=== PATIENT | female | born 1960 | race Caucasian/White ===

== ENCOUNTER 2024-07-21 12:38 | Emergency (ER) | payer BC, SELFPAY ==
--- NOTE | ~2024-07-21 | CT_ITS ---
EXAMINATION: CT HEAD WITHOUT CONTRAST CLINICAL INFORMATION: Headache and blurry vision. COMPARISON: None available. TECHNIQUE: Contiguous axial imaging was performed from the skull base to vertex without intravenous administration of contrast. This CT examination was performed using dose optimization techniques as appropriate, variously including the following: *Automated exposure control *Adjustment of mA and/or kV according to patient size (this includes techniques or standardized protocols for targeted exams where dose is matched to indication/reason for exam; i.e. extremities or head) *Use of iterative reconstruction technique DLP: 676 mGy-cm FINDINGS: There is no acute intracranial hemorrhage. There is no evidence of acute/subacute cerebral or cerebellar infarction. There is no midline shift or mass effect. No extra-axial fluid collection. The ventricles are normal in size. The orbits are symmetric and within normal limits. The calvarium is intact. There is a partially visualized mucosal retention cyst within the left maxillary sinus. The mastoid air cells are clear. CT/CT head/brain wo IV con IMPRESSION: No acute intracranial pathology. Electronically signed by: Paddy Lezama DO 07/21/2024 03:46 PM EDT
--- NOTE | ~2024-07-21 | XR_ITS ---
EXAMINATION: XR CHEST CLINICAL INFORMATION: Chest pain. COMPARISON: Chest radiograph dated January 03, 2020. TECHNIQUE: 2 views of the chest were obtained. FINDINGS: The heart is normal in size. The lungs are clear. Pleural spaces are clear. No pneumothorax. No acute osseous abnormality. XR/XR chest 2V IMPRESSION: No acute cardiopulmonary disease. Electronically signed by: Paddy Lezama DO 07/21/2024 03:48 PM EDT
--- NOTE | 2024-07-21 12:41 | ECG_ITS ---
Test Reason : cp Blood Pressure : / mmHG Vent. Rate : 068 BPM Atrial Rate : 068 BPM P-R Int : 138 ms QRS Dur : 082 ms QT Int : 442 ms P-R-T Axes : 037 249 000 degrees QTc Int : 469 ms Normal sinus rhythm Right superior axis deviation Pulmonary disease pattern T wave abnormality, consider anterolateral ischemia Abnormal ECG When compared with ECG of 03-JAN-2020 10:54, Questionable change in QRS axis Nonspecific T wave abnormality now evident in Inferior leads Referred By: Lana Dang Electronically Signed By:JOE TYSON MD
[2024-07-21 13:00] VITALS: BP 155/85; PULSE 66; RESP 16; TEMP 37; O2SAT 95; BMI 27.6
--- NOTE | 2024-07-21 13:00 | ED.GENADULT ---
HPI - General Adult General Chief complaint: Chest Pain Stated complaint: chest tightness, high BP, headache Time Seen by Provider: 07/21/24 13:52 Source: patient, RN notes reviewed and old records reviewed Mode of arrival: ambulatory History of Present Illness ED Provider: Peggy Estrada PA-C HPI narrative: 63-year-old female with a past medical history of anxiety presenting to the ED complaining of headache, feeling fuzzy and flush, and chest tightness with elevated blood pressure noted at dentist and home since last night. No known history of hypertension. Also reports blurry vision. Denies neck/back pain, nausea/vomiting, SOB, pedal edema. Denies taking anticoagulation Related Data Previous Rx's ?Medication ?Instructions ?Recorded luvdnzquro-mqwzppgqdqrkn-gcbxksyh 1 cap PO Q4-6H PRN headache #14 07/21/24 50 mg-300 mg-40 mg capsule caps (Fioricet) Allergies Allergy/AdvReac Type Severity Reaction Status Date / Time acetaminophen [From TYLOX] AdvReac Mild NAUSEA Verified 07/21/24 13:02 oxycodone [From TYLOX] AdvReac Mild NAUSEA Verified 07/21/24 13:02 Review of Systems Review of Systems: Yes all other systems are reviewed and are negative Constitutional: Constitutional: Reports as per HPI Neurologic: Denies Abnormal speech present PMFSH Past Medical History Attestation statement: The following information was validated with the patient. Source: old records reviewed Social History Social History Smoked in Last 30 Days: Yes Use of substances other than those prescribed or required for medical reasons: Yes Substance Use Type: Marijuana Substance Use Frequency: Occasionally Advance Directives: No Advance Directives Information Provided: Yes Do you have a plan to hurt others: No Plan Physical Exam ED Vital Signs: Vital Signs - 24 hr 07/21/24 13:00 07/21/24 15:09 07/21/24 15:09 Temperature 98.6 F Pulse Rate 66 62 70 Respiratory Rate 16 Blood Pressure 155/85 H 161/82 H 168/93 H Pulse Oximetry 95 Oxygen Delivery Method Room Air 07/21/24 15:10 07/21/24 15:12 Temperature 98.6 F Pulse Rate 68 67 Respiratory Rate 18 Blood Pressure 164/89 H 164/89 H Pulse Oximetry 97 Oxygen Delivery Method Room Air BMI result Body Mass Index 27.6 Const General: cooperative, healthy appearing, no acute distress, alert and awake Orientation/consciousness: patient oriented x3 Limitations: no limitations HENMT Head: Yes normal to inspection and Yes atraumatic Ears: hearing grossly normal bilaterally General nose exam: Normal external nose present Face and sinus: Yes normal facial exam Eyes General: appearance normal, both eyes and all related structures Pupils: Equal, round and reactive pupils present EOM: EOMs intact bilaterally Direct Ophthalmoscopy: no photophobia Neck Neck: Yes normal visual inspection, Yes no meningeal signs and No anterior neck swelling Resp Effort & Inspection: normal respiratory effort and no respiratory distress Auscultation: clear to auscultation bilaterally, no crackles and no wheezes Cardio Rate: regular rate Heart sounds: S1 normal heart sound present and S2 normal heart sound present GI Inspection: Yes normal to inspection Palpation (GI): Soft to palpation, nontender, no guarding and not rigid Skin Rashes: no rashes Wounds: no wounds Neuro General: patient oriented x3, gait normal, tone normal, moves all extremities, no meningeal signs, no focal motor deficits and CN's II-XI intact bilaterally Cranial nerves: Yes CN's II-XII intact bilaterally, Yes Equal, round and reactive pupils present and Yes Bilaterally intact EOM present Cognition (Neuro): normal cognition Speech: No Abnormal speech present Gait exam (Neuro): Normal gait present Motor exam (neuro): 5/5 motor strength present throughout and no tremor noted Extrem General: Yes normal to inspection Course Course Course Narrative: This is a rapid medical exam performed by Damaris Dang NP: Additional HPI, ROS, PE not included below will be deferred to primary provider. Patient is a 63-year-old female presenting with headache, chest tightness, and increased blood pressure. Noticed symptoms at the dentist yesterday, checked at home last night and BP was 202/117. Purdy flushed at home last night. BP 155/85 in triage. Plan: EKG, labs -Labs reassuring. Troponin x2 negative -viral studies negative XR chest 2V IMPRESSION: No acute cardiopulmonary disease. CT head/brain wo IV con IMPRESSION: No acute intracranial pathology. > blood pressure has remained in 160s over 80s/90s in the ED. Results discussed with patient including worrisome signs and symptoms and strict return precautions, and when to return to the emergency department. They verbalized understanding and feel safe for discharge at this time. Medications Administered Discontinued Medications Generic Name Dose Route Start Last Admin Trade Name Garcia PRN Reason Stop Dose Admin Acetaminophen/Butalbital/Caffeine 1 tab 07/21/24 16:06 07/21/24 16:27 Butalb/Acetamin/Caff 50/325/40 Tablet PO 07/21/24 16:07 1 tab ONCE ONE Administration Medical Decision Making Medical Decision Making MDM Narrative: 63-year-old female with a past medical history of anxiety presenting to the ED complaining of headache, feeling fuzzy and flush, and chest tightness with elevated blood pressure noted at dentist and home since last night. On exam BP 155/85 in triage, NAD/nontoxic appearing, no focal neuro deficits, lungs CTA. Concern for atypical ACS vs hypertensive urgency/emergency vs migraine headache vs anxiety vs ICH or subacute CVA. Unlikely TIA. Plan: EKG, labs, UA, CXR, head CT, orthostatics, re-evaluate Please refer to course for remaining clinical decision making, interpretation of labs/imaging results, and discussions with consultants and/or family members. Differential Diagnosis Differential Diagnoses: The differential diagnosis associated with the presentation includes As above Admission/Observation Consideration of admission/observation: Escalation of care including admission/observation considered Lab Data MDM Lab Attestation statement: I reviewed the patient's lab results. 07/21/24 13:32 07/21/24 13:32 Labs: Lab Results 07/21/24 07/21/24 Range/Units 13:32 16:18 WBC 11.1 H (4.8-10.8) X10*3/uL RBC 4.30 (4.20-5.50) X10*6/uL Hgb 13.8 (12.0-16.0) g/dl Hct 40.1 (37.0-47.0) % MCV 93.3 (80.0-98.0) fL MCH 32.1 (27.0-33.0) pg MCHC 34.4 (31.0-35.0) g/dl RDW 13.0 (11.0-16.0) % Plt Count 273 (160-400) X10*3/uL MPV 10.1 (9.4-12.3) fL Immature Gran % (Auto) 0.5 H (0.0-0.4) % Neut % (Auto) 66.5 (45-73) % Lymph % (Auto) 24.5 (20-40) % [place] % (Auto) 7.0 (2-11) % Eos % (Auto) 1.0 (0-4) % Baso % (Auto) 0.5 (0-2) % Lymph # (Auto) 2.7 (1.2-4.9) X10*3/uL [place] # (Auto) 0.8 (0.1-1.2) X10*3/uL Eos # (Auto) 0.1 (0.0-0.4) X10*3/uL Baso # (Auto) 0.1 (0.0-0.2) X10*3/uL Abs Immat Gran (auto) 0.05 H (0.00-0.03) X10*3/uL Absolute Neuts (auto) 7.4 (2.0-8.3) x10*3/uL Absolute Nucleated RBC 0.000 (0.0-0.012) X10*3/uL Nucleated RBC % (auto) 0.0 (0.0-0.2) /100WBC PT 10.8 L (10.9-12.4) SEC INR 0.9 (0.9-1.1) Sodium 139 (135-145) mmol/L Potassium 3.6 (3.3-5.1) mmol/L Chloride 108 (96-108) mmol/L Carbon Dioxide 24 (22-29) mmol/L Anion Gap 11 L (12-20) BUN 12 (9-16) mg/dL Creatinine 0.72 (0.5-1.4) mg/dL Estim Creat Clear Calc 71.4 Estimated GFR > 60 Random Glucose 114 (60-115) mg/dL Calcium 10.3 H (8.4-10.2) mg/dL Magnesium 2.0 (1.6-2.6) mg/dL Total Bilirubin 0.4 (0.0-1.0) mg/dL AST 32 H (5-31) U/L ALT 39 H (0-31) U/L Alkaline Phosphatase 82 (39-117) U/L Troponin I High Sens < 2.7 < 2.7 (<3.5-17.0) ng/L Total Protein 6.9 (6.5-8.0) g/dL Albumin 4.4 (3.5-5.0) g/dL Influenza Type A (PCR) NEGATIVE (Negative) Influenza Type B (PCR) NEGATIVE (Negative) RSV RNA Qual (PCR) NEGATIVE (Negative) SARS-CoV-2 RNA (RT-PCR) NEGATIVE (Negative) Independent Interpretation I performed an independent interpretation of an: EKG (My interpretation EKG normal sinus rhythm rate of 60. Questionable change in QRS axis when compared to prior. Nonspecific T-wave abnormality in inferior leads. No STEMI) and Plain X-Ray Radiology Impression Discussion of test interpretation with radiology: I have reviewed the radiologist's reading. Independent Historian Clinical information obtained from an independent historian. History obtained from or confirmed by: Spouse External Record Review External record reviewed: Inpatient record, Office record, Outpatient record, Prior outpatient labs, Prior outpatient radiology, Primary care record and Outside ED record Tests considered The following testing was considered but not selected: As above Chronic Conditions Patient?s care impacted by: Other (anxiety) Discharge Plan Discharge Clinical Impression: Chest tightness, Headache Patient Disposition: Home, Self-Care Instructions: Acute Headache (DC), Noncardiac Chest Pain (ED) Additional Instructions: Your blood work is reassuring Your x-ray and head CT are also unremarkable Please follow-up with your primary care doctor as well as Cardiology and Neurology Fioricet as a combination headache medicine, take as needed for acute headache If her symptoms persist or worsen you have constant or worsening chest pain, shortness of breath, weakness, nausea/vomiting or headache return to the emergency department Prescriptions: New nbylmkfuuw-vpudeczqdpura-rkly [Fioricet] 50-300-40 mg capsule 1 cap PO Q4-6H PRN (Reason: headache) Qty: 14 0RF Referrals: [facility] [place]Provider Group] [facility] [place] Group] Alden Guido MD [Primary Care Provider] - 2 days Print Language: Cape Verdean
[2024-07-21 13:41] LABS: MANUAL DIFF FLAG NO
[2024-07-21 13:46] LABS: Basophils Absolute Auto 0.1 X10*3/uL (0.0-0.2); Basophils Percent Auto 0.5 % (0-2); Eosinophils Absolute Auto 0.1 X10*3/uL (0.0-0.4); Hematocrit 40.1 % (37.0-47.0); Hemoglobin 13.8 g/dl (12.0-16.0); Imm Gran Abs Auto 0.05 X10*3/uL (0.00-0.03); Imm Gran Pct Auto 0.5 % (0.0-0.4); Lymphocytes Absolute Auto 2.7 X10*3/uL (1.2-4.9); Lymphocytes Percent Auto 24.5 % (20-40); Mean Corpuscular HGB Conc 34.4 g/dl (31.0-35.0); Mean Corpuscular Hemoglobin 32.1 pg (27.0-33.0); Mean Corpuscular Volume 93.3 fL (80.0-98.0); Mean Platelet Volume 10.1 fL (9.4-12.3); Monocytes Absolute Auto 0.8 X10*3/uL (0.1-1.2); Neutrophils Absolute Auto 7.4 x10*3/uL (2.0-8.3); Neutrophils Percent Auto 66.5 % (45-73); Platelet Count 273 X10*3/uL (160-400); White Blood Count 11.1 X10*3/uL (4.8-10.8)
[2024-07-21 13:49] LABS: INTERNATIONAL NORM RATIO 0.9 (0.9-1.1); Prothrombin Time 10.8 SEC (10.9-12.4)
[2024-07-21 13:57] LABS: Alanine Aminotransferase 39 U/L (0-31); Albumin Level 4.4 g/dL (3.5-5.0); Alkaline Phosphatase 82 U/L (39-117); Anion Gap 11 (12-20); Aspartate Amino Transferase 32 U/L (5-31); Bilirubin Total 0.4 mg/dL (0.0-1.0); Blood Urea Nitrogen 12 mg/dL (9-16); Calcium 10.3 mg/dL (8.4-10.2); Carbon Dioxide 24 mmol/L (22-29); Chloride 108 mmol/L (96-108); Creatinine Clr Calc Pharmacy 71.4; Estimated Glomerular Filt Rate > 60; Glucose Random 114 mg/dL (60-115); Potassium 3.6 mmol/L (3.3-5.1); Sodium 139 mmol/L (135-145); Total Protein 6.9 g/dL (6.5-8.0)
[2024-07-21 14:04] LABS: Troponin-I High Sensitivity < 2.7 ng/L (<3.5-17.0)
[2024-07-21 14:18] LABS: Influenza A PCR NEGATIVE (Negative); Influenza B PCR NEGATIVE (Negative); Resp Syncy Virus RNA Qual PCR NEGATIVE (Negative); SARS COV2 PCR INHOUSE NEGATIVE (Negative)
--- OUTSIDE RECORDS SUMMARY | 2024-07-21 14:43 | XMS_ITS | Continuity of Care Document ---
Author Organization [facility] Huy lt Address [address] [place] [address]- Care Team Providers Care Garment Tag Stringer Name Role Phone Hay AGUIRRE, Alden Agudelo Primary Care Physician Encounter [facility] Date(s): 03/12/23 - 04/11/23 [facility] Adult [address] [place] [address]- Allergies, Adverse Reactions, Alerts Substance Reaction Severity Status Percocet 1 Active 1makes skin crawl Immunizations Given and Recorded Vaccine Date Status Refusal Reason zoster vaccine, inactivated 07/25/22 Recorded zoster vaccine, inactivated 05/12/22 Recorded SARS-CoV-2 (COVID-19) mRNA-1273 vaccine 10/17/21 R ecorded SARS-CoV-2 (COVID-19) Ad26 vaccine 01/20/21 Record ed tetanus/diphtheria/pertussis, acel(Tdap) 1 09/07/17 Given tetanus/diphtheria/pertussis, acel(Tdap) 01/17/08 Given influenza virus vaccine, inactivated 2 07/27/17 Gi kelvin influenza virus vaccine, inactivated 08/15/14 Give n influenza virus vaccine, inactivated 3 09/29/13 Gi kelvin influenza virus vaccine, inactivated 4 12/20/12 Gi kelvin pneumococcal 23-valent vaccine 05/21/15 Given Tetanus Toxoid Vaccine (oldterm) 10/12/97 Given 1Result Comment: [09/07/2017] [id number] 2Result Comment: [07/27/2017] AFLURIA [id number] 3Admin Note: DECLINED 4Admin Note: pt delcined Medications FLUoxetine 20 mg oral capsule 1, capsule, By Mouth, Daily, # 30 capsule, Refills 5, Maintenance, 03/26/23 18:02:00 EDT, Route to Pharmacy Electronically, [facility], 156, cm, 08/29/22 14:28:00 EST, Height Start Date: 03/26/23 Status: Ordered Lipitor 40 mg oral tablet 1 tablet = 40 mg, By Mouth, Daily, # 90 tablet, 1 Refills, Maintenance, 03/19/23 15:38:00 EDT, Tablet, [facility], 156, cm, 08/29/22 14:28:00 EST, Height Start Date: 03/19/23 Status: Ordered LORazepam 1 mg oral tablet 1 tablet, By Mouth, Daily, PRN NEEDED FOR ANXIETY, # 10 tablet, 4 Refills, Maintenance, 233:42:00 EDT, [facility], 156, cm, 08/29/22 14:28:00 EST, Height Start Date: 02/12/23 Stop Date: 08/15/23 Status: Ordered zolpidem 5 mg oral tablet 1 tablet, By Mouth, Daily at bedtime, PRN NEEDED FOR SLEEP, # 14 tablet, 5 Refills, Maintenance,03/26/23 18:03:00 EDT, [facility], 156, cm, 08/29/22 14:28:00 EST, Height Start Date: 03/26/23 Stop Date: 09/25/23 Status: Ordered Problem List Condition Confirmation Course Effective Dates Status Health Status Informant Allergic rhinitis Confirmed Active Anxiety Confirmed Active Apocrine metaplasia of breast Confirmed Active Cigarette smoker Confirmed 04/19/12 Active Family history of amyloidosis - mother Confirmed Active Prediabetes Confirmed Active History of leukocytosis Confirmed Active Hypercholesterolemia Confirmed Active Insomnia, idiopathic Confirmed Active Depression, major Confirmed Active Osteoarthritis of right knee Confirmed Active Osteopenia Confirmed Active Osteoporosis Confirmed Active Social History Social History Type Response Smoking Status Current every day hernesto alvarez entered on: 03/17/18 Sex Patient Care team information Care Team Personnel Name: Fay Wong RN Position: [facility] RN Member Role: Primary Care Nurse Name: Alden Guido MD Position: S Physician - Primary Care Member Role: PCP Address: Address: [address] [place] [id number] Name: Vianney Alexander RN Position: [facility] RN Member Role: Primary Care Nurse Name: Caty Ferrari RN Position: [facility] RN Member Role: Primary Care Nurse Name: Juliann Deal RN Position: [facility] Tabular Typist Member Role: Primary Care Nurse Care Team Related Persons Name: BINDU ANGELES Address: home [address] [place] [id number]
--- OUTSIDE RECORDS SUMMARY | 2024-07-21 14:43 | XMS_ITS | Continuity of Care Document ---
Author Organization [facility] Huy lt Address [address] [place] [address]- Care Team Providers Care Nursery Worker Name Role Phone Hay AGUIRRE, Alden Agudelo Primary Care Physician Encounter [facility] Date(s): 06/10/22 - 07/10/22 [facility] Adult [address] [place] [address]- Allergies, Adverse Reactions, Alerts Substance Reaction Severity Status Percocet 1 Active 1makes skin crawl Immunizations Given and Recorded Vaccine Date Status Refusal Reason zoster vaccine, inactivated 05/12/22 Recorded SARS-CoV-2 (COVID-19) [...] Vaccine (oldterm) 10/12/97 Given 1Result Comment: [09/07/2017] [id number] 2Result Comment: [07/27/2017] AFLURIA [id number] 3Admin Note: DECLINED 4Admin Note: pt delcined Medications acetaminophen 325 mg oral tablet 650 mg, By Mouth, Every 6 hours, Refills 0, Maintenance, 09/23/17 8:28:50 Start Date: 09/23/17 Status: Ordered buPROPion 300 mg/24 hours (XL) oral tablet, extended release 1 tablet, By Mouth, Daily, # 90 tablet, 1 Refills, Maintenance, 06/27/22 15:47:00 EDT, [facility], 156, cm, 06/10/22 8:27:00 EDT, Height, 69.6, kg, 01/04/21 10:03:00 EDT, Dry Weight Start Date: 06/27/22 Status: Ordered FLUoxetine 10 mg oral capsule 1, capsule, By Mouth, Daily, # 90 capsule, Refills 3, Maintenance, 06/27/22 17:03:00 EDT, Route to Pharmacy Electronically, [facility], 156, cm, 06/10/22 8:27:00 EDT, Height, 69.6, kg, 01/04/21 10:03:00 EDT, Dry Weight Start Date: 06/27/22 Status: Ordered Lipitor 40 mg oral tablet 1 tablet = 40 mg, By Mouth, Daily, # 90 tablet, 3 Refills, Maintenance, 08/14/21 10:28:00 EDT, Tablet, [facility], 156, cm, 01/05/21 6:17:00 EDT, Height, 69.6, kg, 01/04/21 10:03:00 EDT, Dry Weight Start Date: 08/14/21 Status: Ordered LORazepam 1 mg oral tablet 1 tablet, By Mouth, Daily, PRN NEEDED FOR ANXIETY, # 10 tablet, 4 Refills, Maintenance, 04/21/2217:33:00 EDT, [facility], 156, cm, 01/05/21 6:17:00 EDT, Height, 69.6, kg, 01/04/21 10:03:00 EDT, Dry Weight Start Date: 04/21/22 Status: Ordered MiraLax Powder 1 pack/packet = 17 Gm, By Mouth, Daily, PRN Constipation, 0 Refills, Maintenance, 01/05/21 10:29:00EDT, Powder, Partial fill upon patient request if the prescription is for a schedule II opioid drug. Start Date: 01/05/21 Status: Ordered Paxlovid 150 mg-100 mg (150 mg-100 mg Dose) oral tablet See Instructions, Take 300 mg nirmatrelvir (two 150 mg tablet) and 100 mg ritonavir (one 100 mg tablet), taking all 3 tablets together, orally twice daily for 5 days, # 30 tablet, 0 Refills, Maintenance, 06/10/22 17:39:00 EDT, [facility],... Start Date: 06/10/22 Status: Ordered senna 187 mg oral tablet 1 tablet = 8.6 mg, By Mouth, Daily at bedtime, PRN as needed for constipation, 0 Refills, Maintenance, 01/05/21 10:29:00 EDT, Tablet, Partial fill upon patient request if the prescription is for a schedule II opioid drug. Start Date: 01/05/21 Status: Ordered zolpidem 5 mg oral tablet 1 tablet, By Mouth, Daily at bedtime, PRN NEEDED, TO SLEEP., # 14 tablet, 5 Refills, Acute 09/04/22 9:55:00 EST, 03/04/22 9:55:00 EDT, [facility], 156, cm, 01/05/21 6:17:00 EDT, Height, 69.6, kg, 01/04/21 10:03:00 EDT, Dry Weight Start Date: 03/04/22 Stop Date: 09/04/22 Status: Ordered Problem List Condition Confirmation Course [...] on: 03/17/18 Sex Patient Care team information Personnel Name: Alden Guido MD Address: Address: [address] [place] [id number]
--- OUTSIDE RECORDS SUMMARY | 2024-07-21 14:43 | XMS_ITS | Continuity of Care Document ---
Author Organization [facility] Huy lt Address [address] [place] [address]- Care Team Providers Care Marble Rubber Name Role Phone Hay AGUIRRE, Alden Agudelo Primary Care Physician [phone] Encounter [facility] Date(s): 02/13/23 - 03/15/23 [facility] Adult [address] [place] [address]- Allergies, Adverse Reactions, Alerts Substance Reaction Severity [...] Vaccine (oldterm) 10/12/97 Given 1Result Comment: [09/07/2017] [id number] 2Result Comment: [07/27/2017] AFLURIA [id number] 3Admin Note: DECLINED 4Admin Note: pt delcined Medications FLUoxetine 20 mg oral capsule 20 mg, 1, capsule, By Mouth, Daily, Increase in dose, # 30 capsule, Refills 5, Tot. Refills 5, Maintenance, 08/29/22 14:56:00 EST, Route to Pharmacy Electronically, [facility], Partial fill upon patient request if the prescription is for... Start Date: 08/29/22 Status: Ordered Lipitor 40 mg oral tablet 1 tablet = 40 mg, By Mouth, Daily, # 90 tablet, 1 Refills, Maintenance, 09/05/22 10:12:00 EST, Tablet, [facility], 156, cm, 08/29/22 14:28:00 EST, Height, 69.6, kg, 01/04/21 10:03:00EDT, Dry Weight Start Date: 09/05/22 Status: Ordered LORazepam 1 mg oral tablet 1 tablet, By Mouth, Daily, PRN NEEDED FOR ANXIETY, # 10 tablet, 4 Refills, Maintenance, :42:00 EDT, [facility], 156, cm, 08/29/22 14:28:00 EST, Height Start Date: 02/12/23 Stop Date: 08/15/23 Status: Ordered zolpidem 5 mg oral tablet See Instructions, TAKE ONE TABLET BY MOUTH AT BEDTIME NEEDED FOR SLEEP, # 14 tablet, 5 Refills, Maintenance, 09/16/22 17:10:00 EST, [facility], 156, cm, 08/29/22 14:28:00 EST, Height, 69.6, kg, 01/04/21 10:03:00 EDT, Dry Weight Start Date: 09/16/22 Status: Ordered Problem List Condition Confirmation Course [...] Team Personnel Name: Fay Wong RN Position: [facility] RN Member Role: Primary Care Nurse Name: Alden Guido MD Position: [facility] Physician - Primary Care Member Role: PCP Address: Address: [address] [place] [address]- Name: Vianney Alexander RN Position: [facility] RN Member Role: Primary Care Nurse Name: Caty Ferrari RN Position: [facility] RN Member Role: Primary Care Nurse Name: Juliann Deal RN Position: [facility] Hospital Journeyman Press Operator Member Role: Primary Care Nurse Care Team Related Persons Name: BINDU ANGELES Address: home [address] [place] [id number]
--- OUTSIDE RECORDS SUMMARY | 2024-07-21 14:43 | XMS_ITS | Continuity of Care Document ---
Author Organization [facility] Kenny Ford Huy Address [address] [place] [address]- Care Team Providers Care Magazine Hand Name Role Phone Antoine Thompson MD Primary Care Physician [facility]): [facility] - 12/13/19 [facility] Kenny Ford Adult [address] [place] [address]- [facility] Encounter Diagnosis General medical exam(Discharge Diagnosis) - 12/06/19 Osteoporosis s/p 3 years of zoledronic acid(Discharge Diagnosis) - 12/06/19 Insomnia, idiopathic(Discharge Diagnosis) - 12/06/19 Depression, major(Discharge Diagnosis) - 12/06/19 Cigarette smoker(Discharge Diagnosis) - 12/06/19 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) - 12/06/19 Attending Physician: Antoine Thompson MD Allergies, Adverse Reactions, Alerts Substance Reaction Severity Status NKA Active Immunizations Given and Recorded Vaccine Date Status Refusal Reason tetanus/diphtheria/pertussis, acel(Tdap) 1 09/07/17 Given tetanus/diphtheria/pertussis, acel(Tdap) 01/17/08 Given influenza virus vaccine, inactivated 2 07/27/17 Gi kelvin influenza virus vaccine, inactivated 08/15/14 Give n influenza virus vaccine, inactivated 3 09/29/13 Gi kelvin influenza virus vaccine, inactivated 4 12/20/12 Gi kelvin pneumococcal 23-valent vaccine 05/21/15 Given Tetanus Toxoid Vaccine (oldterm) 10/12/97 Given 1Result Comment: [09/07/2017] [id number] 2Result Comment: [07/27/2017] AFLURIA [id number] 3Admin Note: DECLINED 4Admin Note: pt delcined Medications acetaminophen 325 mg oral tablet 650 mg, By Mouth, Every 6 hours, Refills 0, Maintenance, 09/23/17 8:28:50 Start Date: 09/23/17 Status: Ordered Ambien 5 mg oral tablet 1 tablet = 5 mg, By Mouth, Daily at bedtime, PRN Sleep, 6 month supply, # 14 tablet, 5 Refills, Maintenance, 08/08/19 9:47:00 EDT, Tablet Start Date: 08/08/19 Status: Ordered buPROPion 300 mg/24 hours (XL) oral tablet, extended release 1 tablet = 300 mg, By Mouth, Daily, # 90 tablet, 3 Refills, Maintenance, 12/06/19 10:04:00 EST, [facility], 155.9, cm, 12/06/19 9:43:00 EST, Height, 66.7, kg, 02/01/19 11:39:00 EDT, Dry Weight Start Date: 12/06/19 Status: Ordered chantix 1mg tablet 1 tablet = 1 mg, By Mouth, 2 times a day, with a full glass of water starting week 5 - week 12, # 60 tablet, 1 Refills, Maintenance, 11/30/18 15:33:18 EST, Tablet Start Date: 11/30/18 Status: Ordered Chantix Starter Pack 0.5 mg-1 mg oral tablet See Instructions, as directed on package labelling, # 1 pack/packet, 0 Refills, Maintenance, 11/30/18 15:33:21 EST, Tablet, as directed on package labelling Start Date: 11/30/18 Status: Ordered FLUoxetine 10 mg oral tablet 1 tablet = 10 mg, By Mouth, Daily, # 90 tablet, 3 Refills, Maintenance, 12/06/19 10:04:00 EST, Tablet, [facility], 155.9, cm, 12/06/19 9:43:00 EST, Height, 66.7, kg, 02/01/19 11:39:00 EDT, Dry Weight Start Date: 12/06/19 Status: Ordered Lipitor 40 mg oral tablet 1 tablet = 40 mg, By Mouth, Daily, # 90 tablet, 3 Refills, Maintenance, 12/06/19 10:03:00 EST, Tablet, [facility], 155.9, cm, 12/06/19 9:43:00 EST, Height, 66.7, kg, 02/01/19 11:39:00 EDT, Dry Weight Start Date: 12/06/19 Stop Date: 11/30/20 Status: Ordered Problem List Condition Effective Dates Status Health Status Inform ant Allergic rhinitis(Confirmed) Active Anxiety(Confirmed) Active Apocrine metaplasia of breast(Confirmed) Active Cigarette smoker(Confirmed) 04/19/12 Active Family history of amyloidosi s - mother(Confirmed) Active Prediabetes(Confirmed) Active Hypercholesterolemia(Confirmed) Active Insomnia, idiopathic(Confirmed) Active Depression, major(Confirmed) Active Osteoarthritis of right knee(Confirmed) Active Osteoporosis(Confirmed) Active Diagnosis Diagnosis Type Effective Dates Health Status Clinical Service Informant Depression, major Discharge Diagnosis 12/06/19 Insomnia, idiopathic Discharge Diagnosis 12/06/19 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 Discharge Diagnosis 12/06/19 Cigarette smoker Discharge Diagnosis 12/06/19 Osteoporosis s/p 3 years of zoledronic acid Discharge Diagnosis 12/06/19 Non-Specified General medical exam Discharge Diagnosis 12/06/19 Vital Signs Most recent to oldest [Reference Range]: 1 Height 155.9 cm (12/06/19 9:43 AM) Weight 68.1 kg (12/06/19 9:43 AM) Pulse Rate [55-90 bpm] 60 bpm (12/06/19 9:43 AM) Body Mass Index [18.5-24.99] 28.02 *H* (12/06/19 9:43 AM) Blood Pressure [90-138/55-84 mm Hg] 100/ 68mm Hg (12/06/19 9:43 AM) Respiratory Rate [16-30 br/min] 16 br/mi n (12/06/19 9:43 AM) Temperature [96.8-100.4 DegF] 97.8 DegF (12/06/19 9:43 AM) Blood pressure sites Arm, left (12/06/19 9:43 AM) Temperature Route Oral (12/06/19 9:43 AM) Weight Obtained Via Standing scale (12/06/19 9:43 AM) Social History Social History Type Response Smoking Status Current every day hernesto alvarez entered on: 03/17/18 Sex
--- OUTSIDE RECORDS SUMMARY | 2024-07-21 14:43 | XMS_ITS | Continuity of Care Document ---
Author Organization [facility] Logan Huy lt Address [address] [place] [address]- Care Team Providers Care Environmental Advisor Name Role Phone Hay AGUIRRE, Alden Agudelo Primary Care Physician [phone] [place] [facility] [place]19[place]23 [place] 08/26/23 [facility] Adult [address] [place] [address]- Encounter Diagnosis Urticaria(Discharge Diagnosis) - 08/19/23 Elevated blood pressure reading without diagnosis of hypertension(Discharge Diagnosis) - 08/19/23 Attending Physician: Not on Staff, Attending MD Allergies, Adverse Reactions, Alerts Substance Reaction [...] Vaccine (oldterm) 10/12/97 Given 1Result Comment: [09/07/2017] [id number] 2Result Comment: [07/27/2017] KAYLA [id number] 3Admin Note: DECLINED 4Admin Note: pt delcined Medications aspirin 325 mg oral delayed release tablet 325 mg, 1, tablet, By Mouth, Daily, # 30 tablet, Refills 0, Tot. Refills 0, Maintenance, 07/29/23 13:51:00 EDT, Route to Pharmacy Electronically, [facility], Partial fill upon patient request if the prescription is for a schedule II opio... Start Date: 07/29/23 Status: Ordered FLUoxetine 20 mg oral capsule 1, capsule, By Mouth, Daily, # 30 capsule, Refills 5, Maintenance, 03/26/23 18:02:00 EDT, Route to Pharmacy Electronically, [facility], 156, cm, 08/29/22 14:28:00 EST, Height Start Date: 03/26/23 Status: Ordered Lipitor 40 mg oral tablet 1 tablet = 40 mg, By Mouth, Daily, # 90 tablet, 1 Refills, Maintenance, 03/19/23 15:38:00 EDT, Tablet, [facility], 156, cm, 08/29/22 14:28:00 EST, Height Start Date: 03/19/23 Status: Ordered LORazepam 1 mg oral tablet 1 tablet, By Mouth, Daily, PRN NEEDED FOR ANXIETY, # 10 tablet, 4 Refills, Maintenance, 233:42:00 EDT, [facility], 156, cm, 08/29/22 14:28:00 EST, Height Start Date: 02/12/23 Stop Date: 08/15/23 Status: Ordered predniSONE 20 mg oral tablet See Instructions, Tian one tablet wtice daily x 5 days then reduce to one tab once daily x 5 days, #15 tablet, 0 Refills, Acute 09/13/23 14:19:00 EST, 08/19/23 14:18:00 EST, [facility], 152.4, cm, 08/19/23 14:08:00 EST, Height, 65.4, kg,... Start Date: 08/19/23 Stop Date: 09/13/23 Status: Ordered zolpidem 5 mg oral tablet 1 tablet, By Mouth, Daily at bedtime, PRN NEEDED FOR SLEEP, # 14 tablet, 5 Refills, Maintenance,03/26/23 18:03:00 EDT, [facility], 156, cm, 08/29/22 14:28:00 EST, [...] Active Osteopenia Confirmed Active Osteoporosis Confirmed Active Diagnosis Diagnosis Type Effective Dates Health Status Clinical Service Informant Urticaria Discharge Diagnosis 08/19/23 Elevated blood pressure reading without diagnosis of hypertension Discharge Diagnosis 08/19/23 Vital Signs Most recent to oldest [Reference Range]: 1 2 Height 152.40 cm (08/19/23 2:08 PM) 152.40 cm (08/19/23 2:03 PM) Oxygen Saturation [94-100 %] 95 % (08/19/23 2:03 PM) Pulse Rate [55-90 bpm] 92 bpm *H* (08/19/23 2:03 PM) Blood Pressure [90-138/55-84 mm Hg] 153/ 90mm Hg *H* (08/19/23 2:08 PM) 144/90mm Hg *H* (08/19/23 2:03 PM) Temperature [96.8-100.4 DegF] 98.1 DegF (08/19/23 2:03 PM) Mode of Delivery (Oxygen) Room air (08/19/23 2:03 PM) Blood pressure sites Arm, left (08/19/23 2:08 PM) Arm, left (08/19/23 2:03 PM) Temperature Route Oral (08/19/23 2:03 PM) Social History Social History Type Response Smoking Status Current every day sm oker; Tobacco use times per day: 6-7; entered on: 05/25/17 Sex Patient Care team information Care Team Personnel Name: Fay Wong RN Position: [facility] RN Member Role: Primary Care Nurse Name: Alden Guido MD Position: [facility] Physician - Primary Care Member Role: PCP Address: Address: [address] [place] [address]- [place] Name: Vianney Alexander RN Position: [facility] RN Member Role: Primary Care Nurse Name: Caty Ferrari RN Position: [facility] RN Member Role: Primary Care Nurse Name: Juliann Deal RN Position: [facility] Picker Member Role: Primary Care Nurse Care Team Related Persons Name: BINDU ANGELES Address: home [address] [place] [address]
--- OUTSIDE RECORDS SUMMARY | 2024-07-21 14:43 | XMS_ITS | Continuity of Care Document ---
Author Organization [facility] Logan Huy lt Address [address] [place] [address]- Care Team Providers Care Electrical Project Engineer Name Role Phone Alden Guido MD Primary Care Physician [phone] Encounter [facility] [place] Date(s): 04/10/20 - 04/17/20 [facility] Adult [address] [place] [address]- [facility] Attending Physician: Alden Guido MD Allergies, Adverse Reactions, Alerts Substance Reaction [...] Vaccine (oldterm) 10/12/97 Given 1Result Comment: [09/07/2017] [id number] 2Result Comment: [07/27/2017] AFLURIA [id number] 3Admin Note: DECLINED 4Admin Note: pt delcined [...] Daily, # 90 tablet, 1 Refills, Maintenance, 03/12/20 11:46:00 EDT, [facility], Duplicate script, 155.9, cm, 01/10/20 9:47:00 EDT, Height, 66.7, kg, 02/01/19 11:39:00 EDT, Dry Weight Start Date: 03/12/20 Status: Ordered chantix 1mg tablet 1 tablet [...] Maintenance, 12/06/19 10:04:00 EST, Tablet, [facility], 155.9, cm, 12/06/19 9:43:00 EST, [...] Date: 12/06/19 Stop Date: 11/30/20 Status: Ordered LORazepam 1 mg oral tablet 1 tablet = 1 mg, By Mouth, Daily, PRN as needed for anxiety, for 30 days, # 10 tablet, 2 Refills, Acute 07/08/20 10:16:00 EDT, 04/09/20 10:16:00 EDT, [facility], 155.9, cm, 01/10/20 9:47:00 EDT, Height, 66.7, kg, 02/01/19 11:39:00 EDT, . Start Date: 04/09/20 Stop Date: 07/08/20 Status: Ordered Problem List Condition Effective Dates Status Health Status Inform ant Allergic rhinitis(Confirmed) Active Anxiety(Confirmed) Active Apocrine metaplasia of breast(Confirmed) Active Cigarette smoker(Confirmed) 04/19/12 Active Family history of amyloidosi s - mother(Confirmed) Active Prediabetes(Confirmed) Active Hypercholesterolemia(Confirmed) Active Insomnia, idiopathic(Confirmed) Active Depression, major(Confirmed) Active Osteoarthritis of right knee(Confirmed) Active Osteoporosis(Confirmed) Active Vital Signs Most recent to oldest [Reference Range]: 1 Height 155.9 cm (04/10/20 8:05 AM) Social History Social History Type Response Smoking Status Current every day hernesto alvarez entered on: 03/17/18 Sex
--- OUTSIDE RECORDS SUMMARY | 2024-07-21 14:43 | XMS_ITS | Continuity of Care Document ---
Author Organization [facility] Logan Huy lt Address [address] [place] [address]- Care Team Providers Care Hot Water Heater Installer Name Role Phone Hay AGUIRRE, Alden Agudelo Primary Care Physician [facility] Date[facility]s): 09/16/22 - 10/16/22 [facility] Adult [address] [place] [address]- Allergies, Adverse Reactions, Alerts Substance Reaction Severity [...] Vaccine (oldterm) 10/12/97 Given 1Result Comment: [09/07/2017] [id number] 2Result Comment: [07/27/2017] AFLURIA [id number] 3Admin Note: DECLINED 4Admin Note: pt delcined Medications FLUoxetine 20 mg oral capsule 20 mg, 1, capsule, By Mouth, Daily, Increase in dose, # 30 capsule, Refills 5, Tot. Refills 5, Maintenance, 08/29/22 14:56:00 EST, Route to Pharmacy Electronically, [facility], Partial fill upon patient request if the prescription is for... Start Date: 08/29/22 Status: Ordered Lipitor 40 mg oral tablet 1 tablet = 40 mg, By Mouth, Daily, # 90 tablet, 1 Refills, Maintenance, 09/05/22 10:12:00 EST, Tablet, [facility], 156, cm, 08/29/22 14:28:00 EST, Height, 69.6, kg, 01/04/21 10:03:00EDT, Dry Weight Start Date: 09/05/22 Status: Ordered LORazepam 1 mg oral tablet 1 tablet, By Mouth, Daily, PRN NEEDED FOR ANXIETY, # 10 tablet, 4 Refills, Maintenance, :11:00 EST, [facility], 156, cm, 08/29/22 14:28:00 EST, Height, 69.6, kg, 01/04/21 10:03:00 EDT, Dry Weight Start Date: 09/26/22 Stop Date: 01/25/23 Status: Ordered zolpidem 5 mg oral tablet See Instructions, TAKE ONE TABLET BY MOUTH AT BEDTIME NEEDED FOR SLEEP, # 14 tablet, 5 Refills, Maintenance, 09/16/22 17:10:00 EST, [facility], 156, cm, 08/29/22 14:28:00 EST, Height, 69.6, kg, 01/04/21 10:03:00 EDT, Dry Weight Start Date: 09/16/22 Status: Ordered zolpidem 5 mg oral tablet See Instructions, TAKE ONE TABLET BY MOUTH AT BEDTIME NEEDED FOR SLEEP, # 14 tablet, 5 Refills, Hard Stop 02/27/23 15:17:00 EDT, 08/30/22 15:17:00 EST, [facility], 156, cm, 08/29/22 14:28:00 EST, Height, 69.6, kg, 01/04/21 10:03:00 EDT... Start Date: 08/30/22 Stop Date: 02/27/23 Status: Ordered Problem List Condition Confirmation Course [...] Response Smoking Status Current every day hernesto antonio entered on: 03/17/18 Sex Patient Care team information Care Team Personnel Name: Fay Wong RN Position: [facility] RN Member Role: Primary Care Nurse Name: Alden Guido MD Position: [facility] Primary Care Physician Member Role: PCP Address: Address: [address] [place] [address]- Name: Vianney Alexander RN Position: [facility] RN Member Role: Primary Care Nurse Name: Caty Ferrari RN Position: [facility] RN Member Role: Primary Care Nurse Name: Juliann Deal RN Position: [facility] Hospital Master Dyer Member Role: Primary Care Nurse Care Team Related Persons Name: BINDU ANGELES Address: home [address] [place] [id number]
--- OUTSIDE RECORDS SUMMARY | 2024-07-21 14:43 | XMS_ITS | Continuity of Care Document ---
Author Organization [facility] Logan Huy lt Address [address] [place] [address]- Care Team Providers Care Soda Dispenser Name Role Phone Hay AGUIRRE, Alden Agudelo Primary Care Physician [facility] Date(s): 06/17/24 - 07/17/24 [facility] Adult [address] [place] [address]- Allergies, Adverse Reactions, Alerts Substance Reaction Severity [...] Vaccine (oldterm) 10/12/97 Given 1Result Comment: [09/07/2017] [id number] 2Result Comment: [07/27/2017] AFLURIA [id number] 3Admin Note: DECLINED 4Admin Note: pt delcined Medications aspirin 325 mg oral delayed release tablet 325 mg, 1, tablet, By Mouth, Daily, # 30 tablet, Refills 0, Tot. Refills 0, Maintenance, 07/29/23 13:51:00 EDT, Route to Pharmacy Electronically, [facility], Partial fill upon patient request if the prescription is for a schedule II opio... Start Date: 07/29/23 Status: Ordered atorvastatin 40 mg oral tablet 1 tablet, By Mouth, Daily, # 90 tablet, 1 Refills, Maintenance, 04/29/24 10:48:00 EDT, [facility], 152.4, cm, 02/10/24 11:11:00 EDT, Height, 65.4, kg, 07/29/23 12:55:00 EDT, Dry Weight Start Date: 04/29/24 Status: Ordered FLUoxetine 20 mg oral capsule 1, capsule, By Mouth, Daily, # 90 capsule, Refills 1, Maintenance, 04/29/24 10:49:00 EDT, Route to Pharmacy Electronically, [facility], 152.4, cm, 02/10/24 11:11:00 EDT, Height, 65.4, kg, 07/29/23 12:55:00 EDT, Dry Weight Start Date: 04/29/24 Status: Ordered LORazepam 1 mg oral tablet 1 tablet, By Mouth, Daily, INSTR: NEEDED FOR ANXIETY., # 10 tablet, 4 Refills, Hard Stop 08/30/24 5:49:00 EST, 03/30/24 5:49:00 EDT, [facility], 152.4, cm, 02/10/24 11:11:00 EDT, Height, 65.4, kg, 07/29/23 12:55:00 EDT, Dry Weight Start Date: 03/30/24 Stop Date: 08/30/24 Status: Ordered LORazepam 1 mg oral tablet 1 tablet, By Mouth, Daily, PRN as needed for anxiety, # 30 tablet, 2 Refills, Maintenance, 245:49:00 EST, [facility], 152.4, cm, 02/10/24 11:11:00 EDT, Height, 65.4, kg, 07/29/23 12:55:00 EDT, Dry Weight Start Date: 08/30/24 Status: Ordered zolpidem 5 mg oral tablet 1 tablet, By Mouth, Daily at bedtime, PRN NEEDED FOR SLEEP, # 14 tablet, 5 Refills, Maintenance,12/08/23 12:17:00 EST, [facility], 152.4, cm, 08/19/23 14:08:00 EST, Height, 65.4,kg, 07/29/23 12:55:00 EDT, Dry Weight Start Date: 12/08/23 Stop Date: 06/07/24 Status: Ordered Problem List Condition Confirmation Course [...] Team Personnel Name: Fay Wong RN Position: [facility] SN RN Member Role: Primary Care Nurse Name: Alden Guido MD Position: S Physician - Primary Care Member Role: PCP Address: Address: [address] [place] [address]- Name: Vianney Alexander RN Position: S RN Member Role: Primary Care Nurse Name: Caty Ferrari RN Position: S RN Member Role: Primary Care Nurse Name: Juliann Deal RN Position: S SN RN Member Role: Primary Care Nurse Care Team Related Persons Name: BINDU ANGELES Address: home [address] [place] [id number]
--- OUTSIDE RECORDS SUMMARY | 2024-07-21 14:43 | XMS_ITS | Continuity of Care Document ---
[facility] Address [address] [place] [address]- Care Team Providers Care Seamless Tube Drawer Name Role Phone Hay AGUIRRE, Alden Agudelo Primary Care Physician [place] [facility] [place] 05/10/20 [facility] Adult [address] [place] [address]- [facility] Attending Physician: Admtr, Ar8 Allergies, Adverse Reactions, Alerts Substance Reaction Severity [...] Vaccine (oldterm) 10/12/97 Given 1Result Comment: [09/07/2017] [id number] 2Result Comment: [07/27/2017] AFLURIA [id number] 3Admin Note: DECLINED 4Admin Note: pt delcined [...] Maintenance, 12/06/19 10:04:00 EST, Tablet, [facility], 155.9, cm, 12/06/19 9:43:00 EST, [...] Osteoarthritis of right knee(Confirmed) Active Osteoporosis(Confirmed) Active Procedures Procedure Date Related Diagnosis Body Site Status Bone density (bone mineral c ontent) study, one or more sites; single photon absorptiometry 1 04/20/08 Completed colonoscopy 2010 Completed US guided vacuum assist lele st biopsy with clip placement on the right breast Completed 1Radiology and Imaging Social History Social History Type Response Smoking Status Current every day hernesto alvarez entered on: 03/17/18 Sex
--- OUTSIDE RECORDS SUMMARY | 2024-07-21 14:43 | XMS_ITS | Continuity of Care Document ---
Author Organization [facility] Huy lt Address [address] [place] [address]- Care Team Providers Care Glass Vial Bending Conveyor Feeder Name Role Phone Hay AGUIRRE, Alden Agudelo Primary Care Physician [facility] Date[facility]s): 02/19/24 - 03/20/24 [facility] Adult [address] [place] [address]- Allergies, Adverse Reactions, Alerts Substance Reaction Severity [...] Vaccine (oldterm) 10/12/97 Given 1Result Comment: [09/07/2017] [id number] 2Result Comment: [07/27/2017] BEARURIA [id number] 3Admin Note: DECLINED 4Admin Note: pt delcined Medications aspirin 325 mg oral delayed release tablet 325 mg, 1, tablet, By Mouth, Daily, # 30 tablet, Refills 0, Tot. Refills 0, Maintenance, 07/29/23 13:51:00 EDT, Route to Pharmacy Electronically, [facility], Partial fill upon patient request if the prescription is for a schedule II opio... Start Date: 07/29/23 Status: Ordered atorvastatin 40 mg oral tablet 1 tablet, By Mouth, Daily, # 90 tablet, 1 Refills, Maintenance, 10/06/23 18:41:00 EST, [facility], 152.4, cm, 08/19/23 14:08:00 EST, Height, 65.4, kg, 07/29/23 12:55:00 EDT, Dry Weight Start Date: 10/06/23 Status: Ordered FLUoxetine 20 mg oral capsule 1, capsule, By Mouth, Daily, # 90 capsule, Refills 1, Tot. Refills 1, Maintenance, 10/06/23 18:42:00 EST, Route to Pharmacy Electronically, [facility], 152.4, cm, 08/19/23 14:08:00 EST, Height, 65.4, kg, 07/29/23 12:55:00 EDT, Dry Weight Start Date: 10/06/23 Status: Ordered LORazepam 1 mg oral tablet 1 tablet, By Mouth, Daily, NEEDED FOR ANXIETY., # 10 tablet, 4 Refills, Maintenance, 09/01/23 16:05:00 EST, [facility], 152.4, cm, 08/19/23 14:08:00 EST, Height, 65.4, kg, 07/29/23 12:55:00 EDT, Dry Weight Start Date: 09/01/23 Stop Date: 01/31/24 Status: Ordered zolpidem 5 mg oral tablet 1 tablet, By Mouth, Daily at bedtime, PRN NEEDED FOR SLEEP, # 14 tablet, 5 Refills, Maintenance,12/08/23 12:17:00 EST, [facility], 152.4, cm, 08/19/23 14:08:00 EST, [...] Care team information Care Team Personnel Name: Marvin WORRELL, Fay Position: [facility] RN Member Role: Primary Care Nurse Name: Hay AGUIRRE, Alden Agudelo Position: [facility] Physician - Primary Care Member Role: PCP Address: Address: [address] [place] [address]- Name: Vianney Alexander RN Position: [facility] RN Member Role: Primary Care Nurse Name: Caty Ferrari RN Position: [facility] RN Member Role: Primary Care Nurse Name: Juliann Deal RN Position: [facility] Hospital Internet Marketing Specialist Member Role: Primary Care Nurse Care Team Related Persons Name: BINDU ANGELES Address: home [address] [place] [id number]
--- OUTSIDE RECORDS SUMMARY | 2024-07-21 14:43 | XMS_ITS | Continuity of Care Document ---
Author Organization [facility] Huy lt Address [address] [place] [address]- Care Team Providers Care Stringer Machine Tender Name Role Phone Alden Guido MD Primary Care Physician [phone] [facility] Date(s): 12/10/20 - 12/17/20 [facility] Adult [address] [place] [address]- Attending Physician: Alden Guido MD Allergies, Adverse [...] Vaccine (oldterm) 10/12/97 Given 1Result Comment: [09/07/2017] [id number] 2Result Comment: [07/27/2017] AFLURIA [id number] 3Admin Note: DECLINED 4Admin Note: pt delcined Medications acetaminophen 325 mg oral tablet 650 mg, By Mouth, Every 6 hours, Refills 0, Maintenance, 09/23/17 8:28:50 Start Date: 09/23/17 Status: Ordered Ambien 5 mg oral tablet 1 tablet = 5 mg, By Mouth, Daily at bedtime, PRN Sleep, 6 month supply, # 14 tablet, 5 Refills, Maintenance, 05/22/20 16:28:00 EDT, Tablet, [facility], 155.9, cm, 04/10/20 8:05:00 EDT, Height, 66.7, kg, 02/01/19 11:39:00 EDT, Dry Weight Start Date: 05/22/20 Status: Ordered buPROPion 300 mg/24 hours (XL) oral tablet, extended release 1 tablet = 300 mg, By Mouth, Daily, # 90 tablet, 1 Refills, Maintenance, 10/17/20 12:59:00 EST, [facility], Duplicate script, 155.9, cm, 06/14/20 8:07:00 EDT, Height, 66.7, kg, 02/01/19 11:39:00 EDT, Dry Weight Start Date: 10/17/20 Status: Ordered FLUoxetine 10 mg oral capsule 10 mg, 1, capsule, By Mouth, Daily, # 90 capsule, Refills 3, Tot. Refills 3, Maintenance, 06/14/20 8:39:00 EDT, Route to Pharmacy Electronically, [facility], 155.9, cm, 06/14/20 8:07:00 EDT, Height, 66.7, kg, 02/01/19 11:39:00 EDT, Dry We... Start Date: 06/14/20 Status: Ordered Lipitor 40 mg oral tablet 1 tablet = 40 mg, By Mouth, Daily, # 90 tablet, 3 Refills, Maintenance, 12/06/19 10:03:00 EST, Tablet, [facility], 155.9, cm, 12/06/19 9:43:00 EST, Height, 66.7, kg, 02/01/19 11:39:00 EDT, Dry Weight Start Date: 12/06/19 Stop Date: 11/30/20 Status: Ordered LORazepam 1 mg oral tablet 1 tablet = 1 mg, By Mouth, Daily, PRN as needed for anxiety, for 30 days, # 10 tablet, 2 Refills, Acute 03/10/21 13:17:00 EDT, 12/10/20 13:17:00 EST, [facility], 155.9, cm, 06/14/20 8:07:00 EDT, Height, 66.7, kg, 02/01/19 11:39:00 EDT, . Start Date: 12/10/20 Stop Date: 03/10/21 Status: Ordered Problem List Condition Effective Dates Status Health Status Inform ant Allergic rhinitis(Confirmed) Active Anxiety(Confirmed) Active Apocrine metaplasia of breast(Confirmed) Active Cigarette smoker(Confirmed) 04/19/12 Active Family history of amyloidosi s - mother(Confirmed) Active Prediabetes(Confirmed) Active Hypercholesterolemia(Confirmed) Active Insomnia, idiopathic(Confirmed) Active Depression, major(Confirmed) Active Osteoarthritis of right knee(Confirmed) Active Osteoporosis(Confirmed) Active Social History Social History Type Response Smoking Status Current every day hernesto alvarez entered on: 03/17/18 Sex
--- OUTSIDE RECORDS SUMMARY | 2024-07-21 14:43 | XMS_ITS | Continuity of Care Document ---
Author Organization [facility] Huy [address] Address [address] [place] [address]- Care Team Providers Care Micro Computer Data Processor Name Role Phone Hay AGUIRRE, Alden Agudelo Primary Care Physician [facility] Date[facility]s): 06[facility]10[facility]22 - 07/10/22 [facility] Adult [address] [place] [address]- Encounter Diagnosis COVID-19 virus infection(Discharge Diagnosis) - 06/10/22 Allergies, Adverse Reactions, Alerts Substance Reaction Severity [...] Vaccine (oldterm) 10/12/97 Given 1Result Comment: [09/07/2017] [id number] 2Result Comment: [07/27/2017] AFLURIA [id number] 3Admin Note: DECLINED 4Admin Note: pt delcined Medications acetaminophen 325 mg oral tablet 650 mg, By Mouth, Every 6 hours, Refills 0, Maintenance, 09/23/17 8:28:50 Start Date: 09/23/17 Status: Ordered buPROPion 300 mg/24 hours (XL) oral tablet, extended release 1 tablet, By Mouth, Daily, # 90 tablet, 1 Refills, Maintenance, 06/27/22 15:47:00 EDT, [facility], 156, cm, 06/10/22 8:27:00 EDT, Height, 69.6, kg, 01/04/21 10:03:00 EDT, Dry Weight Start Date: 06/27/22 Status: Ordered FLUoxetine 10 mg oral capsule 1, capsule, By Mouth, Daily, # 90 capsule, Refills 3, Maintenance, 06/27/22 17:03:00 EDT, Route to Pharmacy Electronically, [facility], 156, cm, 06/10/22 8:27:00 EDT, Height, 69.6, kg, 01/04/21 10:03:00 EDT, Dry Weight Start Date: 06/27/22 Status: Ordered Lipitor 40 mg oral tablet 1 tablet = 40 mg, By Mouth, Daily, # 90 tablet, 3 Refills, Maintenance, 08/14/21 10:28:00 EDT, Tablet, [facility], 156, cm, 01/05/21 6:17:00 EDT, Height, 69.6, kg, 01/04/21 10:03:00 EDT, Dry Weight Start Date: 08/14/21 Status: Ordered LORazepam 1 mg oral tablet 1 tablet, By Mouth, Daily, PRN NEEDED FOR ANXIETY, # 10 tablet, 4 Refills, Maintenance, 04/21/2217:33:00 EDT, [facility], 156, cm, 01/05/21 6:17:00 EDT, [...] Refills, Maintenance, 06/10/22 17:39:00 EDT, [facility],... Start Date: 06/10/22 Status: Ordered [...] 9:55:00 EST, 03/04/22 9:55:00 EDT, [facility], 156, cm, 01/05/21 6:17:00 EDT, [...] Diagnosis Diagnosis Type Effective Dates Health Status Cl inical Service Informant COVID-19 virus infection Discharge Diagnosis 06/10/22 Non-Specified Social History Social History Type Response Smoking Status Current every day hernesto alvarez entered on: 03/17/18 Sex Patient Care team information Personnel Name: Alden Guido MD Address: Address: [address] [place] [id number]
--- OUTSIDE RECORDS SUMMARY | 2024-07-21 14:43 | XMS_ITS | Continuity of Care Document ---
Author Organization [facility] Address [address] [place] [address]- Care Team Providers Care Manager Registration Name Role Phone Hay AGUIRRE, Alden Agudelo Primary Care Physician Encounter [facility] Date(s): 06/22/21 - 07/22/21 [facility] Adult [address] [place] [address]- Allergies, Adverse Reactions, Alerts Substance Reaction Severity [...] Vaccine (oldterm) 10/12/97 Given 1Result Comment: [09/07/2017] [id number] 2Result Comment: [07/27/2017] AFLURIA [id number] 3Admin Note: DECLINED 4Admin Note: pt delcined Medications acetaminophen 325 mg oral tablet 650 mg, By Mouth, Every 6 hours, Refills 0, Maintenance, 09/23/17 8:28:50 Start Date: 09/23/17 Status: Ordered Ambien 5 mg oral tablet 1 tablet = 5 mg, By Mouth, Daily at bedtime, PRN Sleep, 6 month supply, # 14 tablet, 5 Refills, Maintenance, 01/02/21 11:11:00 EDT, Tablet, [facility], 156, cm, 12/26/20 8:15:00 EDT,Height, 66.7, kg, 02/01/19 11:39:00 EDT, Dry Weight Start Date: 01/02/21 Stop Date: 07/01/21 Status: Ordered Aspirin Tablet 325 mg, By Mouth, 2 times a day, Refills 0, Maintenance, 01/05/21 10:29:00 EDT, Partial fill upon patient request if the prescription is for a schedule II opioid drug. Start Date: 01/05/21 Status: Ordered buPROPion 300 mg/24 hours (XL) oral tablet, extended release 1 tablet = 300 mg, By Mouth, Daily, # 90 tablet, 1 Refills, Maintenance, 05/08/21 8:44:00 EDT, [facility], Duplicate script, 156, cm, 01/05/21 6:17:00 EDT, Height, 69.6, kg, 01/04/2110:03:00 EDT, Dry Weight Start Date: 05/08/21 Status: Ordered celecoxib 200 mg oral capsule 1 capsule = 200 mg, By Mouth, Daily in AM, 0 Refills, Maintenance, 01/05/21 10:29:00 EDT, Capsule, Partial fill upon patient request if the prescription is for a schedule II opioid drug. Start Date: 01/05/21 Status: Ordered Colace Capsule 100 mg, 1, capsule, By Mouth, 2 times a day, Refills 0, Maintenance, 01/05/21 10:29:00 EDT, Partialfill upon patient request if the prescription is for a schedule II opioid drug. Start Date: 01/05/21 Status: Ordered FLUoxetine 10 mg oral capsule 1, capsule, By Mouth, Daily, # 90 capsule, Refills 3, Route to Pharmacy Electronically, [facility], 156, cm, 01/05/21 6:17:00 EDT, Height, 69.6, kg, 01/04/21 10:03:00 EDT, Dry Weight Start Date: 06/25/21 Status: Ordered Lipitor 40 mg oral tablet 1 tablet = 40 mg, By Mouth, Daily, # 90 tablet, 1 Refills, Maintenance, 12/26/20 11:08:00 EDT, Tablet, [facility], 156, cm, 12/26/20 8:15:00 EDT, Height, 66.7, kg, 02/01/19 11:39:00 EDT, Dry Weight Start Date: 12/26/20 Status: Ordered LORazepam 1 mg oral tablet 1 tablet, By Mouth, Daily, PRN NEEDED FOR ANXIETY, # 10 tablet, 2 Refills, Acute 09/19/21 17:16:00 EST, 06/20/21 17:16:00 EDT, [facility], 156, cm, 01/05/21 6:17:00 EDT, Height, 69.6, kg, 01/04/21 10:03:00 EDT, Dry Weight Start Date: 06/20/21 Stop Date: 09/19/21 Status: Ordered MiraLax Powder 1 pack/packet = 17 Gm, By Mouth, Daily, PRN Constipation, 0 Refills, Maintenance, 01/05/21 10:29:00EDT, Powder, Partial fill upon patient request if the prescription is for a schedule II opioid drug. Start Date: 01/05/21 Status: Ordered pantoprazole 40 mg oral delayed release tablet = 40 mg, By Mouth, Daily in AM, 0 Refills, Maintenance, 01/05/21 10:29:00 EDT, EC Tablet Start Date: 01/05/21 Status: Ordered senna 187 mg oral tablet 1 tablet = 8.6 mg, By Mouth, Daily at bedtime, PRN as needed for constipation, 0 Refills, Maintenance, 01/05/21 10:29:00 EDT, Tablet, Partial fill upon patient request if the prescription is for a schedule II opioid drug. Start Date: 01/05/21 Status: Ordered Problem List Condition Effective Dates Status Health Status Inform ant Allergic rhinitis(Confirmed) Active Anxiety(Confirmed) Active Apocrine metaplasia of breast(Confirmed) Active Cigarette smoker(Confirmed) 04/19/12 Active Family history of amyloidosi s - mother(Confirmed) Active Prediabetes(Confirmed) Active History of leukocytosis(Confirmed) Active Hypercholesterolemia(Confirmed) Active Insomnia, idiopathic(Confirmed) Active Depression, major(Confirmed) Active Osteoarthritis of right knee(Confirmed) Active Osteopenia(Confirmed) Active Osteoporosis(Confirmed) Active Social History Social History Type Response Smoking Status Current every day hernesto alvarez entered on: 03/17/18 Sex
--- OUTSIDE RECORDS SUMMARY | 2024-07-21 14:43 | XMS_ITS | Continuity of Care Document ---
Author Organization [facility] Address [address] [place] [address]- Care Team Providers Care Night Supervisor Name Role Phone Hay AGUIRRE, Alden Agudelo Primary Care Physician [facility] Date(s): 08/18/23 - 09/17/23 [facility] Adult [address] [place] [address]- Allergies, Adverse Reactions, Alerts Substance Reaction Severity [...] Vaccine (oldterm) 10/12/97 Given 1Result Comment: [09/07/2017] [id number] 2Result Comment: [07/27/2017] BEARURIA [id number] 3Admin Note: DECLINED 4Admin Note: pt delcined Medications aspirin 325 mg oral delayed release tablet 325 mg, 1, tablet, By Mouth, Daily, # 30 tablet, Refills 0, Tot. Refills 0, Maintenance, 07/29/23 13:51:00 EDT, Route to Pharmacy Electronically, [facility], Partial fill upon patient request if the prescription is for a schedule II opio... Start Date: 07/29/23 Status: Ordered FLUoxetine 20 mg oral capsule 1, capsule, By Mouth, Daily, # 30 capsule, Refills 5, Maintenance, 03/26/23 18:02:00 EDT, Route to Pharmacy Electronically, [facility], 156, cm, 08/29/22 14:28:00 EST, Height Start Date: 03/26/23 Status: Ordered Lipitor 40 mg oral tablet 1 tablet = 40 mg, By Mouth, Daily, # 90 tablet, 1 Refills, Maintenance, 03/19/23 15:38:00 EDT, Tablet, [facility], 156, cm, 08/29/22 14:28:00 EST, Height Start Date: 03/19/23 Status: Ordered LORazepam 1 mg oral tablet 1 tablet, By Mouth, Daily, NEEDED FOR ANXIETY., # 10 tablet, 4 Refills, Maintenance, 09/01/23 16:05:00 EST, [facility], 152.4, cm, 08/19/23 14:08:00 EST, Height, 65.4, kg, 07/29/23 12:55:00 EDT, Dry Weight Start Date: 09/01/23 Stop Date: 01/31/24 Status: Ordered zolpidem 5 mg oral tablet 1 tablet, By Mouth, Daily at bedtime, PRN NEEDED FOR SLEEP, # 14 tablet, 5 Refills, Maintenance,03/26/23 18:03:00 EDT, [facility], 156, cm, 08/29/22 14:28:00 EST, [...] Team Personnel Name: Fay Wong RN Position: [facility] RN Member Role: Primary Care Nurse Name: Hay AGUIRRE, Alden Agudelo Position: [facility] Physician - Primary Care Member Role: PCP Address: Address: [address] [place] [address]- Name: Vianney Alexander RN Position: [facility] RN Member Role: Primary Care Nurse Name: Caty Ferrari RN Position: [facility] RN Member Role: Primary Care Nurse Name: Juliann Deal RN Position: [facility] Cigarette Filter Inspector Member Role: Primary Care Nurse Care Team Related Persons Name: BINDU ANGELES Address: [address] [address]
--- OUTSIDE RECORDS SUMMARY | 2024-07-21 14:44 | XMS_ITS | Continuity of Care Document ---
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 Refills 5, Maintenance, 08/29/22 14:56:00 EST, Route to Pharmacy Electronically, [facility], Partial fill upon patient request if the prescription is for... Start Date: 08/29/22 Status: Ordered Lipitor 40 mg oral tablet 1 tablet = 40 mg, By Mouth, Daily, # 90 tablet, 1 Refills, Maintenance, 09/05/22 10:12:00 EST, Tablet, [facility], 156, cm, [...] 15:17:00 EDT, 08/30/22 15:17:00 EST, [facility], 156, cm, 08/29/22 14:28:00 EST, [...] Team Personnel Name: Fay Wong RN Position: [facility] RN Member Role: Primary Care Nurse Name: Alden Guido MD Position: [facility] Primary Care Physician Member Role: PCP Address: Address: [address] [place] [address]- Name: Vianney Alexander RN Position: [facility] RN Member Role: Primary Care Nurse Name: Caty Ferrari RN Position: [facility] RN Member Role: Primary Care Nurse Name: Juliann Deal RN Position: [facility] Hospital Technical Operations Manager Member Role: Primary Care Nurse Care Team Related Persons Name: BINDU ANGELES Address: home [address] [place] [address]
--- OUTSIDE RECORDS SUMMARY | 2024-07-21 14:44 | XMS_ITS | Continuity of Care Document ---
Author Organization [facility] ter Address [address] [place] [address]- Care Team Providers Care Glove Parts Inspector Name Role Phone Hay AGUIRRE, Alden Agudelo Primary Care Physician [place] [facility] [place](s): 12/21/20 - 01/26/[address] [address]- Attending Physician: Bulmaro Marte MD Admitting Physician: Bulmaro Marte MD Referring Physician: Bulmaro Marte MD Allergies, Adverse Reactions, Alerts Substance Reaction [...] Vaccine (oldterm) 10/12/97 Given 1Result Comment: [09/07/2017] [id number] 2Result Comment: [07/27/2017] AFLURIA [id number] 3Admin Note: DECLINED 4Admin Note: pt delcined Medications acetaminophen 325 mg oral tablet 650 mg, By Mouth, Every 6 hours, Refills 0, Maintenance, 09/23/17 8:28:50 Start Date: 09/23/17 Status: Ordered Ambien 5 mg oral tablet 1 tablet = 5 mg, By Mouth, Daily at bedtime, PRN Sleep, 6 month supply, # 14 tablet, 5 Refills, Maintenance, 01/02/21 11:11:00 EDT, Tablet, [facility], 156, cm, 12/26/20 8:15:00 EDT,Height, [...] Refills, Maintenance, 10/17/20 12:59:00 EST, [facility], Duplicate script, 155.9, cm, 06/14/20 8:07:00 EDT, Height, 66.7, kg, 02/01/19 11:39:00 EDT, Dry Weight Start Date: 10/17/20 Status: Ordered celecoxib 200 mg oral capsule [...] 06/14/20 8:39:00 EDT, Route to Pharmacy Electronically, [facility], 155.9, cm, 06/14/20 8:07:00 EDT, Height, 66.7, kg, 02/01/19 11:39:00 EDT, Dry We... Start Date: 06/14/20 Status: Ordered Lipitor 40 mg oral tablet 1 tablet = 40 mg, By Mouth, Daily, # 90 tablet, 1 Refills, Maintenance, 12/26/20 11:08:00 EDT, Tablet, [facility], 156, cm, 12/26/20 8:15:00 EDT, Height, 66.7, kg, 02/01/19 11:39:00 EDT, Dry Weight Start Date: 12/26/20 Status: Ordered LORazepam 1 mg oral tablet 1 tablet = 1 mg, By Mouth, Daily, PRN as needed for anxiety, for 30 days, # 10 tablet, 2 Refills, Acute 03/10/21 13:17:00 EDT, 12/10/20 13:17:00 EST, [facility], 155.9, cm, 06/14/20 8:07:00 EDT, Height, 66.7, kg, 02/01/19 11:39:00 EDT, . Start Date: 12/10/20 Stop Date: 03/10/21 Status: Ordered MiraLax Powder 1 pack/packet = [...]
--- OUTSIDE RECORDS SUMMARY | 2024-07-21 14:44 | XMS_ITS | Continuity of Care Document ---
Author Organization [facility] Address [address] [place] [address]- Care Team Providers Care Corporate Staff Accountant Name Role Phone Alden Guido MD Primary Care Physician [phone] Encounter 10/19/23 - 10/26/23 [facility] [address], [address] [place] [address]- Attending Physician: Alden Guido MD Admitting Physician: Alden Guido MD Referring Physician: Alden Guido MD Allergies, Adverse Reactions, [...] Vaccine (oldterm) 10/12/97 Given 1Result Comment: [09/07/2017] [id number] 2Result Comment: [07/27/2017] AFLURIA [id number] 3Admin Note: DECLINED 4Admin Note: pt delcined Medications aspirin 325 mg oral delayed release tablet 325 mg, 1, tablet, By Mouth, Daily, # 30 tablet, Refills 0, Tot. Refills 0, Maintenance, 07/29/23 13:51:00 EDT, Route to Pharmacy Electronically, [facility], Partial fill upon patient request if the prescription is for a schedule II opio... Start Date: 07/29/23 Status: Ordered atorvastatin 40 mg oral tablet 1 tablet, By Mouth, Daily, # 90 tablet, 1 Refills, Maintenance, 10/06/23 18:41:00 EST, [facility], 152.4, cm, 08/19/23 14:08:00 EST, Height, 65.4, kg, 07/29/23 12:55:00 EDT, Dry Weight Start Date: 10/06/23 Status: Ordered FLUoxetine 20 mg oral capsule 1, capsule, By Mouth, Daily, # 90 capsule, Refills 1, Tot. Refills 1, Maintenance, 10/06/23 18:42:00 EST, Route to Pharmacy Electronically, [facility], 152.4, cm, 08/19/23 14:08:00 EST, Height, 65.4, kg, 07/29/23 12:55:00 EDT, Dry Weight Start Date: 10/06/23 Status: Ordered LORazepam 1 mg oral tablet 1 tablet, By Mouth, Daily, NEEDED FOR ANXIETY., # 10 tablet, 4 Refills, Maintenance, 09/01/23 16:05:00 EST, [facility], 152.4, cm, 08/19/23 14:08:00 EST, Height, 65.4, kg, 07/29/23 12:55:00 EDT, Dry Weight Start Date: 09/01/23 Stop Date: 01/31/24 Status: Ordered zolpidem 5 mg oral tablet 1 tablet, By Mouth, Daily at bedtime, PRN NEEDED FOR SLEEP, # 14 tablet, 5 Refills, Maintenance,03/26/23 18:03:00 EDT, [facility], 156, cm, 08/29/22 14:28:00 EST, [...] Active Osteopenia Confirmed Active Osteoporosis Confirmed Active Results Radiology Reports * Exam Date Time Procedure Performing Provider Status 10/19/23 11:24 AM MM Digital Mammo Screening Irene Moore; Auth (Verified) Notes: (MM Digital Mammo Screening) Reason For Exam: Z12.31 SCREEN RESULT: MM Digital Mammo Screening PROCEDURE: MM Digital Mammo Screening INDICATION: Screening for breast cancer. No known palpable abnormalities. Benign right biopsies in 2009. COMPARISON: [facility] dating back to 09/13/2020. TECHNIQUE: Full-field digital CC and MLO 3D tomosynthesis images of both breasts were acquired. Computer-aided detection (CAD) was utilized in the interpretation of this study. DENSITY: The breast tissue contains scattered areas of fibroglandular density. FINDINGS: No suspicious masses, suspicious microcalcifications, or areas of architectural distortion are seen in either breast to suggest malignancy. There are 2 clips again seen in the right breast in the lateral subareolar region. IMPRESSION: No mammographic evidence of malignancy. RECOMMENDATION: Annual mammographic screening BI-RADS: 2 (Benign) Lay letter mailed to patient WSN: [id number] Ordering Physician: Alden Guido Dictated By: Elly Timmons MD, I Dictated Date/Time: 10/19/23 12:59 pm Reviewed By: Elly Timmons MD, I Signed By: Elly Timmons MD, I Signed Date/Time: 10/19/23 12:59 pm Transcribed By: OLEG Disk Grinder Date/Time: 10/19/23 12:53 pm Birads: Social History Social History Type Response Smoking Status Current every day sm oker; Tobacco use times per day: 6-7; entered on: 05/25/17 Sex Patient Care team information Care Team Personnel Name: Fay Wong RN Position: [facility] RN Member Role: Primary Care Nurse Name: Alden Guido MD Position: [facility] Physician - Primary Care Member Role: PCP Address: Address: [address] [place], [place] [address], [place] [address]- [place] Name: Vianney Alexander RN Position: [facility] RN Member Role: Primary Care Nurse Name: Caty Ferrari RN Position: [facility] RN Member Role: Primary Care Nurse Name: Juliann Deal RN Position: [facility] Service Car Driver Member Role: Primary Care Nurse Care Team Related Persons Name: BINDU ANGELES Address: home [address] [place] [id number]
--- OUTSIDE RECORDS SUMMARY | 2024-07-21 14:44 | XMS_ITS | Continuity of Care Document ---
Author Organization [facility] ter Address [address] [place] [id number]- Care Team Providers Care Director School Of [employer] Name Role Phone Hay AGUIRRE, Alden Agudelo Primary Care Physician [phone] [place] [facility]): 07/29/23 - 07/29/[address] [address] Discharge Disposition: A-D/C Home Attending Physician: Corinna Carreon MD Admitting Physician: Corinna Carreon MD Referring Physician: Corinna Carreon MD Allergies, Adverse Reactions, Alerts Substance Reaction [...] Vaccine (oldterm) 10/12/97 Given 1Result Comment: [09/07/2017] [id number] 2Result Comment: [07/27/2017] AFLURIA [id number] 3Admin Note: DECLINED 4Admin Note: pt delcined Medications acetaminophen 500 mg oral tablet 2 tablet = 1,000 mg, By Mouth, Every 8 hours, PRN for pain, for 15 days, # 90 tablet, 0 Refills, Acute 08/13/23 13:51:00 EDT, 07/29/23 13:51:00 EDT, Tablet, [facility], Partial fill upon patient request if the prescription is for a sched... Start Date: 07/29/23 Stop Date: 08/13/23 Status: Ordered aspirin 325 mg oral delayed release tablet 325 mg, 1, tablet, By Mouth, Daily, # 30 tablet, Refills 0, Tot. Refills 0, Maintenance, 07/29/23 13:51:00 EDT, Route to Pharmacy Electronically, [facility], Partial fill upon patient request if the prescription is for a schedule II opio... Start Date: 07/29/23 Status: Ordered FLUoxetine 20 mg oral capsule 1, capsule, By Mouth, Daily, # 30 capsule, Refills 5, Maintenance, 03/26/23 18:02:00 EDT, Route to Pharmacy Electronically, [facility], 156, cm, 08/29/22 14:28:00 EST, Height Start Date: 03/26/23 Status: Ordered HYDROmorphone 2 mg oral tablet See Instructions, PRN as needed for pain, 1-2 tablet By Mouth Every 4-6 hours, # 42 tablet, 0 Refills, Acute 08/04/23 13:52:00 EDT, 07/29/23 13:51:00 EDT, Tablet, [facility], Partial fill upon patient request if the prescription is for a... Start Date: 07/29/23 Stop Date: 08/04/23 Status: Ordered Lipitor 40 mg oral tablet 1 tablet = 40 mg, By Mouth, Daily, # 90 tablet, 1 Refills, Maintenance, 03/19/23 15:38:00 EDT, Tablet, [facility], 156, cm, 08/29/22 14:28:00 EST, Height Start Date: 03/19/23 Status: Ordered LORazepam 1 mg oral tablet 1 tablet, By Mouth, Daily, PRN NEEDED FOR ANXIETY, # 10 tablet, 4 Refills, Maintenance, :42:00 EDT, [facility], 156, cm, 08/29/22 14:28:00 EST, Height Start Date: 02/12/23 Stop Date: 08/15/23 Status: Ordered ondansetron 4 mg oral tablet 1 tablet = 4 mg, By Mouth, Every 8 hours, PRN as needed for nausea/vomiting, for 7 days, # 21 tablet, 0 Refills, Acute 08/05/23 13:51:00 EDT, 07/29/23 13:51:00 EDT, Tablet, [facility], Partial fill upon patient request if the prescriptio... Start Date: 07/29/23 Stop Date: 08/05/23 Status: Ordered zolpidem 5 mg oral tablet 1 tablet, By Mouth, Daily at bedtime, PRN NEEDED FOR SLEEP, # 14 tablet, 5 Refills, Maintenance,03/26/23 18:03:00 EDT, [facility], 156, cm, 08/29/22 14:28:00 EST, [...] Active Osteopenia Confirmed Active Osteoporosis Confirmed Active Vital Signs Most recent to oldest [Reference Range]: 1 2 3 Height 152.40 cm (07/29/23 12:55 PM) 152.40 cm (07/27/23 5:29 PM) Weight 65.4 kg (07/29/23 12:55 PM) 67.27 kg (07/27/23 5:29 PM) Oxygen Saturation [94-100 %] 96 % (07/29/23 6:00 PM) 97 % (07/29/23 5:45 PM) 98 % (07/29/23 5:30 PM) Pulse Rate [55-90 bpm] 76 bpm (07/29/23 12:55 PM) Body Mass Index [18.5-24.99 kg/m2] 28.16 kg/m2 *H* (07/29/23 12:55 PM) 28.96 kg/m2 *H* (07/27/23 5:29 PM) Blood Pressure [90-138/55-84 mm Hg] 147/95mm Hg *H* (07/29/23 6:00 PM) 149/73mm Hg *H* (07/29/23 5:45 PM) 120/84mm Hg (07/29/23 5:30 PM) Respiratory Rate [16-30 br/min] 17 br/min (07/29/23 6:00 PM) 16 br/min (07/29/23 5:45 PM) 18 br/min (07/29/23 5:30 PM) Temperature [96.8-100.4 DegF] 97.2 DegF (07/29/23 6:00 PM) 97.3 DegF (07/29/23 4:45 PM) 97.1 DegF (07/29/23 12:55 PM) Liters per Minute 2 L/min (07/29/23 5:30 PM) 2 L/min (07/29/23 5:15 PM) 4 L/min (07/29/23 5:00 PM) Mode of Delivery (Oxygen) Room air (07/29/23 6:00 PM) Room air (07/29/23 5:45 PM) Nasal cannula (07/29/23 5:30 PM) Blood pressure sites Arm, right (07/29/23 6:00 PM) Arm, right (07/29/23 5:45 PM) Arm, right (07/29/23 5:30 PM) Temperature Route Temporal (07/29/23 6:00 PM) Temporal (07/29/23 4:45 PM) Temporal (07/29/23 12:55 PM) Dry Weight 65.4 kg (07/29/23 12:55 PM) 67.27 kg (07/27/23 5:29 PM) Weight Obtained Via Standing scale (07/29/23 12:55 PM) Patient/family stated (07/27/23 5:29 PM) Dry Weight Obtained Via Standing scale (07/29/23 12:55 PM) Patient/family stated (07/27/23 5:29 PM) Social History Social History Type Response Smoking Status Current every day hernesto alvarez entered on: 03/17/18 Sex History and physical note * Event Display: History and Physical Hospital Authored Date: [id number] Note * Terri Dave RN: PERFORM Event Display: Discharge/Transfer Note Hospital Authored Date: [id number] Nursing Discharge Note Entered On: 07/29/2023 19:10 EDT Performed On: 07/29/2023 18:30 EDT by Terri Dave RN Nursing Discharge Note 2 Discharge Time : 07/29/2023 18:30 EDT Discharge Level of Care at Discharge : Home/Skilled Nursing/Foster Care Inspector Paper Products Utilized : No AMA Form Signed : No Patient Left Unit Via : Wheelchair Patient Accompanied Off Unit with : Significant other, Responsible adult DC Instructions Provided & Signed by Pt : Yes Patient Understands D/C Instructions : Yes Verbalized Understanding of D/C Plan By : Family, Patient, Significant other, Responsible adult Patient Instructions Discharge Signed : Yes Did Pt have Specialty Bed or Wound Vac : No Terri Dave RN - 07/29/2023 19:10 EDT * Terri Dave RN: PERFORM Event Display: Patient Education/Instruction Authored Date: [id number] Inpatient Adult Discharge Instructions [address] [address] Name: CEDRICK ANGELES : 1960 Visit: 07/29/2023 11:42:00 Current Date: 07/29/2023 18:10 Account: [id number] Inpatient Adult Discharge Instructions We would like to thank you for allowing us to assist you with your healthcare needs. The following includes patient education materials and information regarding your injury/illness. Our entire staffstrives to provide an excellent experience for our patients and their families. PLEASE ENSURE YOU FOLLOW-UP PER THE INSTRUCTIONS BELOW! ?? YOUR OPINION IS IMPORTANT TO US! Please complete the survey you may receive by mail or email. Your feedback will be used to make improvements to the healthcare experiences of our patients and their families. Surveys are administered by [employer] ?? If further treatment with your primary care physician or another doctor is recommended, it is important for you to keep the appointment. Call your primary care physician or return to the Emergency Department immediately if your condition worsens, fails to improve, or new symptoms develop. If you need to find a doctor, you can call [facility] Link for a referral at [phone] or toll free at [phone] ([phone]) or log in to [email or web address].. ?? [facility], in keeping with [facility] guidance, no longer requires face masks for staff, patientsor visitors in most situations. Similiar to time spent indoors at other locations, there is the chance that you were exposed to repiratory viruses during your time with us (such as flu or COVID-19). If you develop symptoms concerning for a viral respiratory infection, please seek testing (and treatment if indicated) from your medical provider or home test kit. ?? You can view and manage your care through the patient portal or by using a health care kirk of your choosing. [employer] is a website that allows you to securely view your medical information including your hospital discharge summary, office visit summaries, medications and follow-up visits. You can also request appointments, renew medications, and request access to your medical information using a health care kirk of your choosing, or just ask a question. You can enroll at [email or web address] or register during your next office visit. You have been discharged from [facility], Patient Care Unit: [facility]. If you have any questions regarding these instructions after you leave, please call us and we will be happy to assist you. [facility] Your Care Team Attending Physician Corinna Carreon MD Discharging Providers Mellissa Anaya Reason for Admission RIGHT HINDFOOT VARUS, PERONEAL TENDONITIS DS Tests Performed Below is a partial list of the tests performed during your hospitalization. You may have had other tests and procedures not included in this list. Please discuss all test results with your provider. Primary Care Provider Alden Guido MD Advance Directive Health Care Proxy on File Yes - Health Care Proxy Discharge Vitals Temperature: 97.3 DegF Height: 152.4 cm Pulse Rate: 76 bpm Weight: 65.4 kg Respiratory Rate: 17 br/min Body Mass Index:??28.16 kg/m2??High Systolic Blood Pressure:??147 mm Hg??High Body surface area: 1.66 Diastolic Blood Pressure:??95 mm Hg??High ?? Oxygen Saturation: 96 % ?? Studies Pending All tests and labs ordered during this hospital stay have been completed unless listed below. Please discuss all pending results with your provider listed above in these instructions. ?? No incomplete studies found What to do next Instructions From Your Doctor Discharge Orders Instructions from your Care Team Refer to attached MD instructions regarding peripheral nerve block Elevate Rt foot/leg above heart level, with 2-3 pillows Activity OOB as??tolerated. Absolute?NO Weight Bearing to operative Rt foot MUST use knee scooter or crutches to get around Cold Application : Elevate affected foot with ice bag (change when wet) Apply ice to Rt ankle/foot, 20min ON & 20min OFF while awake X 48hrs Reinforce dressings with ABD gauze dressings &??heber wrap as needed Range of Motion Rt leg : Flexion & extension (Wiggle) toes??& bend knee Prescriptions sent electronically : Tylenol, Aspirin, Dilaudid, & Zofran Start Dilaudid pain medication as soon as sensation returns to Rt foot Call MD with any questions or concerns Driving to be determined??at postoperative appointment Return to work, also, to be determined at postop visit You Need to Schedule the Following Appointments Follow Up with??Corinna Carreon Where: [address] [facility] [address] [facility] (1) Follow Up with??Alden Guido When:??In 0 days Discharge Medications CEDRICK ANGELES :1960 Visit Date:07/29/2023 Medications: Please continue your medications until treatment is completed or stopped by your provider. Medications not listed below should be discontinued. Discuss any questions related to medications with your provider. What How Much When Instructions Next Dose New Acetaminophen (acetaminophen 500 mg oral tablet) 2 tab(s) Oral Every 8 hours as needed for for pain Duration: 15 Days Pickup at [facility] 3 New Aspirin (aspirin 325 mg oral delayed release tablet) 1 tab(s) Oral Daily Pickup at [place] [address] New Hydromorphone (HYDROmorphone 2 mg oral tablet) See instructions 1-2 tablet By Mouth Every 4-6 hours, As needed for as needed for pain ?? Pickup at [facility] 3 New Ondansetron (ondansetron 4 mg oral tablet) 1 tab(s) Oral Every 8 hours as needed for as needed for nausea/vomiting Duration: 7 Days Pickup at [place] [address] Unchanged Atorvastatin (Lipitor 40 mg oral tablet) 1 tab(s) Oral Daily Unchanged Fluoxetine (FLUoxetine 20 mg oral capsule) 1 capsule Oral Daily Unchanged Lorazepam (LORazepam 1 mg oral tablet) 1 tab(s) Oral Daily as needed for NEEDED FOR ANXIETY Unchanged Zolpidem (zolpidem 5 mg oral tablet) 1 tab(s) Oral Daily at Bedtime as needed for NEEDED FOR SLEEP Pharmacy Information [facility] 3: [address], [place] [id number] [phone] ?? What How Much When Comments Stop Taking Meloxicam (meloxicam 15 mg oral tablet) 1 tab(s) Oral Daily Test Results Below is a partial list of the most recent Laboratory test results done prior to this discharge. You may have had other tests and procedures not included in this list. Please discuss all test resultswith your provider. Allergies (NKA means No Known Allergies) Percocet Problems Active Problems??(13) Allergic rhinitis?? Anxiety?? Apocrine metaplasia of breast?? Cigarette smoker?? Depression, major?? Family history of amyloidosis - mother?? History of leukocytosis?? Hypercholesterolemia?? Insomnia, idiopathic?? Osteoarthritis of right knee?? Osteopenia?? Osteoporosis?? Prediabetes?? Education Materials Below is the list of Educational Leaflet Providered with your Discharge Instructions. Surgery Medical Daystay Surgical Overnight Discharge Instructions?? Valuables and Belongings I fully understand and agree that [facility] accepts no responsibility for all my personal property including clothing, toilet articles, radios, jewelry, dentures, hearing aids, rings, money, or any other property that is in my possession or is brought to me after admission. I understand certain valuables may be placed in a hospital safe for a short period of time. I understand that the hospital is not liable for loss or damage due to accident, fire, or other natural occurrence while said property is in the safe. I accept full responsibility for any personal property that I keep with me, and will not hold the hospital responsible in case of loss or disappearance. I acknowledge that i have been encouraged to send valuables and belongings home. ? Other Discharge Information ? Pulmonary Rehab Status?? Pulmonary Rehab Discharge Status?? Respiratory Rate: 17 br/min ? Common Emergency Awareness Tips IS IT A STROKE? Act FAST and Check for these signs: FACE Does the face look uneven? ARM Does one arm drift down? SPEECH Does their speech sound strange? TIME Call at any sign of stroke ?? Heart Attack Signs Chest discomfort: Most heart attacks involve discomfort in the center of the chest and lasts more than a few minutes, or goes away and comes back. It can feel like uncomfortable pressure, squeezing, fullness or pain. Discomfort in upper body: Symptoms can include pain or discomfort in one or both arms, back, neck, jaw or stomach. Shortness of breath: With or without discomfort. Other signs: Breaking out in a cold sweat, nausea, or lightheaded. Remember, MINUTES DO MATTER. If you experience any of these heart attack warning signs, call to get immediate medical attention! ?? Smoking can increase your chances of developing chronic health problems and can cause harmful effects to other family members in your house. If you smoke, you are strongly encouraged to quit. Please call [facility] [employer] Link at [phone] or [phone]-[facility] ([phone]) or log in to [email or web address] for referrals to smoking cessation programs. ?? 555 Suicide & Crisis Lifeline is available 04/05 if you or someone you know needs to find a reason to keep living. By calling 311 you'll be connected to a skilled, trained counselor at a crisis center in your area. INPATIENT DISCHARGE INSTRUCTIONS SIGNATURE PAGE CEDRICK ANGELES Location:[facility] Registration Date and Time:07/29/2023 11:42 EDT Primary Care Physician: Hay AGUIRRE, Alden Agudelo, Attending Physician: Corinna Carreon MD, CEDRICK BARCENAS, have received the above patient education materials/instructions and have verbalized understanding. If ambulance or transport services are being used I further acknowledge being given a choice of service. ?? If you need to contact me, please call me at this number: . Patient/Handle Finisher Name: Patient/Handle Finisher Signature: Relationship to Patient: Witness Name/Signature: Date: * Terri Dave RN: PERFORM Event Display: Patient Education/Instruction Authored Date: [id number] Inpatient Adult Discharge Instructions [address] [address] Name: CEDRICK ANGELES : 1960 Visit: 07/29/2023 11:42:00 Current Date: 07/29/2023 18:02 Account: [id number] Inpatient Adult Discharge Instructions We would like to thank you for allowing us to assist you with your healthcare needs. The following includes patient education materials and information regarding your injury/illness. Our entire staffstrives to provide an excellent experience for our patients and their families. PLEASE ENSURE YOU FOLLOW-UP PER THE INSTRUCTIONS BELOW! ?? YOUR OPINION IS IMPORTANT TO US! Please complete the survey you may receive by mail or email. Your feedback will be used to make improvements to the healthcare experiences of our patients and their families. Surveys are administered by [employer] ?? If further treatment with your primary care physician or another doctor is recommended, it is important for you to keep the appointment. Call your primary care physician or return to the Emergency Department immediately if your condition worsens, fails to improve, or new symptoms develop. If you need to find a doctor, you can call [facility] for a referral at [phone] or toll free at [phone] ([phone]) or log in to [email or web address].. ?? [facility], in keeping with [facility] guidance, no longer requires face masks for staff, patientsor visitors in most situations. Similiar to time spent indoors at other locations, there is the chance that you were exposed to repiratory viruses during your time with us (such as flu or COVID-19). If you develop symptoms concerning for a viral respiratory infection, please seek testing (and treatment if indicated) from your medical provider or home test kit. ?? You can view and manage your care through the patient portal or by using a health care kirk of your choosing. [employer] is a website that allows you to securely view your medical information including your hospital discharge summary, office visit summaries, medications and follow-up visits. You can also request appointments, renew medications, and request access to your medical information using a health care kirk of your choosing, or just ask a question. You can enroll at [email or web address] or register during your next office visit. You have been discharged from [facility], Patient Care Unit: [facility]. If you have any questions regarding these instructions after you leave, please call us and we will be happy to assist you. [facility] Your Care Team Attending Physician Corinna Carreon MD Discharging Providers Mellissa Anaya Reason for Admission RIGHT HINDFOOT VARUS, PERONEAL TENDONITIS DS Tests Performed Below is a partial list of the tests performed during your hospitalization. You may have had other tests and procedures not included in this list. Please discuss all test results with your provider. Primary Care Provider Hay AGUIRRE, Alden Agudelo Advance Directive Health Care Proxy on File Yes - Health Care Proxy Discharge Vitals Temperature: 97.3 DegF Height: 152.4 cm Pulse Rate: 76 bpm Weight: 65.4 kg Respiratory Rate: 16 br/min Body Mass Index:??28.16 kg/m2??High Systolic Blood Pressure:??149 mm Hg??High Body surface area: 1.66 Diastolic Blood Pressure: 73 mm Hg ?? Oxygen Saturation: 97 % ?? Studies Pending All tests and labs ordered during this hospital stay have been completed unless listed below. Please discuss all pending results with your provider listed above in these instructions. ?? No incomplete studies found What to do next Instructions From Your Doctor Discharge Orders Instructions from your Care Team Refer to attached MD instructions regarding peripheral nerve block Elevate Rt foot/leg above heart level, with 2-3 pillows Activity OOB as??tolerated. Absolute?NO Weight Bearing to operative Rt foot MUST use knee scooter or crutches to get around Cold Application : Elevate affected foot with ice bag (change when wet) Reinforce dressings with ABD gauze dressings &??heber wrap as needed Range of Motion Rt leg : Flexion & extension (Wiggle) toes??& bend knee Prescriptions sent electronically : Tylenol, Aspirin, Dilaudid, & Zofran Start Dilaudid pain medication as soon as sensation returns to Rt foot Call MD with any questions or concerns You Need to Schedule the Following Appointments Follow Up with??Corinna Carreon Where: [address] [facility] [address] [place] [address] [facility] (1) Follow Up with??Alden Guido When:??In 0 days Discharge Medications CEDRICK ANGELES :1960 Visit Date:07/29/2023 Medications: Please continue your medications until treatment is completed or stopped by your provider. Medications not listed below should be discontinued. Discuss any questions related to medications with your provider. What How Much When Instructions Next Dose New Acetaminophen (acetaminophen 500 mg oral tablet) 2 tab(s) Oral Every 8 hours as needed for for pain Duration: 15 Days Pickup at [facility] 3 New Aspirin (aspirin 325 mg oral delayed release tablet) 1 tab(s) Oral Daily Pickup at [facility] 3 New Hydromorphone (HYDROmorphone 2 mg oral tablet) See instructions 1-2 tablet By Mouth Every 4-6 hours, As needed for as needed for pain ?? Pickup at [facility] 3 New Ondansetron (ondansetron 4 mg oral tablet) 1 tab(s) Oral Every 8 hours as needed for as needed for nausea/vomiting Duration: 7 Days Pickup at [facility] 3 Unchanged Atorvastatin (Lipitor 40 mg oral tablet) 1 tab(s) Oral Daily Unchanged Fluoxetine (FLUoxetine 20 mg oral capsule) 1 capsule Oral Daily Unchanged Lorazepam (LORazepam 1 mg oral tablet) 1 tab(s) Oral Daily as needed for NEEDED FOR ANXIETY Unchanged Zolpidem (zolpidem 5 mg oral tablet) 1 tab(s) Oral Daily at Bedtime as needed for NEEDED FOR SLEEP Pharmacy Information [facility] 3: [address], [place] [id number] [phone] ?? What How Much When Comments Stop Taking Meloxicam (meloxicam 15 mg oral tablet) 1 tab(s) Oral Daily Test Results Below is a partial list of the most recent Laboratory test results done prior to this discharge. You may have had other tests and procedures not included in this list. Please discuss all test resultswith your provider. Allergies (NKA means No Known Allergies) Percocet Problems Active Problems??(13) Allergic rhinitis?? Anxiety?? Apocrine metaplasia of breast?? Cigarette smoker?? Depression, major?? Family history of amyloidosis - mother?? History of leukocytosis?? Hypercholesterolemia?? Insomnia, idiopathic?? Osteoarthritis of right knee?? Osteopenia?? Osteoporosis?? Prediabetes?? Education Materials Below is the list of Educational Leaflet Providered with your Discharge Instructions. Surgery Medical Daystay Surgical Overnight Discharge Instructions?? Valuables and Belongings I fully understand and agree that [facility] accepts no responsibility for all my personal property including clothing, toilet articles, radios, jewelry, dentures, hearing aids, rings, money, or any other property that is in my possession or is brought to me after admission. I understand certain valuables may be placed in a hospital safe for a short period of time. I understand that the hospital is not liable for loss or damage due to accident, fire, or other natural occurrence while said property is in the safe. I accept full responsibility for any personal property that I keep with me, and will not hold the hospital responsible in case of loss or disappearance. I acknowledge that i have been encouraged to send valuables and belongings home. ? Other Discharge Information ? Pulmonary Rehab Status?? Pulmonary Rehab Discharge Status?? Respiratory Rate: 16 br/min ? Common Emergency Awareness Tips IS IT A STROKE? Act FAST and Check for these signs: FACE Does the face look uneven? ARM Does one arm drift down? SPEECH Does their speech sound strange? TIME Call at any sign of stroke ?? Heart Attack Signs Chest discomfort: Most heart attacks involve discomfort in the center of the chest and lasts more than a few minutes, or goes away and comes back. It can feel like uncomfortable pressure, squeezing, fullness or pain. Discomfort in upper body: Symptoms can include pain or discomfort in one or both arms, back, neck, jaw or stomach. Shortness of breath: With or without discomfort. Other signs: Breaking out in a cold sweat, nausea, or lightheaded. Remember, MINUTES DO MATTER. If you experience any of these heart attack warning signs, call to get immediate medical attention! ?? Smoking can increase your chances of developing chronic health problems and can cause harmful effects to other family members in your house. If you smoke, you are strongly encouraged to quit. Please call [facility] [employer] at [phone] or [phone]-Interactive Mobile [employer] ([phone]) or log in to [email or web address] for referrals to smoking cessation programs. ?? 475 Suicide & Crisis Lifeline is available 04/05 if you or someone you know needs to find a reason to keep living. By calling 872 you'll be connected to a skilled, trained counselor at a crisis center in your area. INPATIENT DISCHARGE INSTRUCTIONS SIGNATURE PAGE CEDRICK ANGELES Location:[facility] Registration Date and Time:07/29/2023 11:42 EDT Primary Care Physician: Alden Guido MD, Attending Physician: Corinna Carreon MD, I CEDRICK ANGELES, have received the above patient education materials/instructions and have verbalized understanding. If ambulance or transport services are being used I further acknowledge being given a choice of service. ?? If you need to contact me, please call me at this number: . Patient/Handle Finisher Name: Patient/Handle Finisher Signature: Relationship to Patient: Witness Name/Signature: Date: * Melilssa Anaya: PERFORM Event Display: Patient Education/Instruction Authored Date: [id number] Corinna Carreon M.D. POST OPERATIVE INSTRUCTIONS FOLLOWING FOOT AND ANKLE SURGERY ACTIVITY: 1. Weightbearing on operative side: ___X__ ABSOLUTELY NO WEIGHT BEARING Minimal weight bearing (touch down only) on heel for transferring or to maintain balance while using a mobility assistive device (crutches, walker, etc.) You may bear weight as tolerated 2. Walk and stand using crutches, walker, Roll-A-Bout, etc. as needed for support and pain relief. 3. When elevating keep operative side above the level of your heart. This requires reclining rather than sitting straight up. DRESSING / SPLINT / SURGICAL SHOE OR BOOT: Do not remove the dressing for any reason unless you have specifically been instructed to do so! __X___ You have been placed in a splint ??? DO NOT REMOVE Use shoe or boot whenever out of bed ??? may remove for sleeping and bathing Keep shoe or boot on 24 hours a day ??? DO NOT REMOVE You may remove the dressing in two days and cover the sutures with a Band-Aid DO NOT REMOVE YOUR DRESSING. ABSOLUTELY DO NOT GET THE DRESSING WET! Once you are comfortable and mobile, you may bathe. You mayuse a protective waterproof cover available at several pharmacies, or you can wrap a towel around your leg above the dressing securing with tape. Apply a new plastic bag over the dressing and tape itto the towel sealing off any opening in the bag. CALL THE OFFICE IF YOU DO ACCIDENTLY GET THE DRESSING WET. MEDICATIONS: 1. Read all medication labels and take according to instructions. 2. Do not take pain medications on an empty stomach (taking with food decreases nausea) and never take any medication with alcohol. Do not drive while taking pain medication. 3. Pain medication may cause constipation. If needed, please use any laxative of choice such as milk of magnesia or magnesium citrate. These are available over the counter at you pharmacy. 4. Zofran (ondansetron) is prescribed for nausea, but it will also enhance the effect of pain medicine and should help you sleep. SPECIAL INSTRUCTIONS: 1. Keep operative side elevated as much as possible for the first two to three days. Beyond that elevate as needed for swelling or soreness. 2. Notify the office for fever greater than 101.5?? F, excessive redness or swelling in your foot, calf pain that feels like a muscle cramp, or if your pain medication is not effective. If checked, please take one adult strength Enteric Coated Aspirin (325mg) daily _??_X__ until Dr. Carreon instructs you to stop. POST-OP APPOINTMENT: as scheduled @ [facility] * Terri Dave RN: PERFORM, SIGN, VERIFY Event Display: Patient Education Handout Authored Date: [id number] * Terri Dave RN: PERFORM Event Display: Patient Education Leaflets Authored Date: [id number] Surgery Medical Daystay Surgical Overnight Discharge Instructions ?? 295 Medical Daystay/Surgical Overnight Discharge Instructions ? Since your coordination and judgment may be altered by medication and/or anesthesia, a responsible adult must drive you home from the hospital. ? If you have received medication for pain or sedation while under our care, you should not drive, operate machinery, drink alcohol, or sign any legal documents for 24 hours.?? You should have someone with you at home tonight. ? Remain at home the day of discharge.?? You may be up and about unless otherwise instructed by your physician. ? You may resume your daily prescription medication schedule.?? Any depressant medication should be avoided for 24 hours unless otherwise instructed by your surgeon or anesthesiologist. ? Call your physician for a follow-up appointment.? If you experience unusual or severe pain not relied by your pain medication, excessive bleedingor drainage, persistent nausea and vomiting, excessive swelling or redness, foul odor from incisionsite or fever over 100.6F, you need to call your physician. ? A follow-up phone call by a nurse will be made the day after your procedure.?? If you have stayed with us over night, you will not be receiving a follow-up phone call. ? Nausea and vomiting are a common side effect of prescription pain medication.?? We recommend that pills are not taken on an empty stomach.?? While taking any prescription pain medication you should not drive or drink alcohol. ? Patient Care team information Care Team Personnel Name: Fay Wong RN Position: [facility] RN Member Role: Primary Care Nurse Name: Alden Guido MD Position: [facility] Physician - Primary Care Member Role: PCP Address: Address: [address] [place] [id number]- Name: Vianney Alexander RN Position: [facility] RN Member Role: Primary Care Nurse Name: Caty Ferrari RN Position: [facility] RN Member Role: Primary Care Nurse Name: Juliann Deal RN Position: [facility] Hospital Lang Interpreter Member Role: Primary Care Nurse Care Team Related Persons Name: BINDU ANGELES Address: [address] [address]
--- OUTSIDE RECORDS SUMMARY | 2024-07-21 14:44 | XMS_ITS | Continuity of Care Document ---
Author Organization [facility] Kenny Ford Huy lt Address [address] [place] [address]- Care Team Providers Care Slot Tag Inserter Name Role Phone Hay AGUIRRE, Alden Agudelo Primary Care Physician [facility]): 04/26/24 - 05/26/24 [facility] [address] [place] [address]- Allergies, Adverse Reactions, Alerts Substance Reaction Severity [...] Vaccine (oldterm) 10/12/97 Given 1Result Comment: [09/07/2017] [id number] 2Result Comment: [07/27/2017] AFLURIA [id number] 3Admin Note: DECLINED 4Admin Note: pt delcined Medications aspirin 325 mg oral delayed release tablet 325 mg, 1, tablet, By Mouth, Daily, # 30 tablet, Refills 0, Tot. Refills 0, Maintenance, 07/29/23 13:51:00 EDT, Route to Pharmacy Electronically, [facility], Partial fill upon patient request if the prescription is for a schedule II opio... Start Date: 07/29/23 Status: Ordered atorvastatin 40 mg oral tablet 1 tablet, By Mouth, Daily, # 90 tablet, 1 Refills, Maintenance, 04/29/24 10:48:00 EDT, [facility], 152.4, cm, 02/10/24 11:11:00 EDT, Height, 65.4, kg, 07/29/23 12:55:00 EDT, Dry Weight Start Date: 04/29/24 Status: Ordered FLUoxetine 20 mg oral capsule 1, capsule, By Mouth, Daily, # 90 capsule, Refills 1, Maintenance, 04/29/24 10:49:00 EDT, Route to Pharmacy Electronically, [facility], 152.4, cm, 02/10/24 11:11:00 EDT, Height, 65.4, kg, 07/29/23 12:55:00 EDT, Dry Weight Start Date: 04/29/24 Status: Ordered LORazepam 1 mg oral tablet 1 tablet, By Mouth, Daily, INSTR: NEEDED FOR ANXIETY., # 10 tablet, 4 Refills, Maintenance, 03/30/24 5:49:00 EDT, [facility], 152.4, cm, 02/10/24 11:11:00 EDT, Height, 65.4, kg, 07/29/23 12:55:00 EDT, Dry Weight Start Date: 03/30/24 Stop Date: 08/30/24 Status: Ordered zolpidem 5 mg oral tablet 1 tablet, By Mouth, Daily at bedtime, PRN NEEDED FOR SLEEP, # 14 tablet, 5 Refills, Maintenance,12/08/23 12:17:00 EST, [facility], 152.4, cm, 08/19/23 14:08:00 EST, [...] Team Personnel Name: Fay Wong RN Position: [facility] SN RN Member Role: Primary Care Nurse Name: Alden Guido MD Position: [facility] Physician - Primary Care Member Role: PCP Address: Address: [address] [place] [address]- Name: Vianney Alexander RN Position: S RN Member Role: Primary Care Nurse Name: Caty Ferrari RN Position: S RN Member Role: Primary Care Nurse Name: Juliann Deal RN Position: [facility] SN RN Member Role: Primary Care Nurse Care Team Related Persons Name: BINDU ANGELES Address: home [address] [place] [id number]
--- OUTSIDE RECORDS SUMMARY | 2024-07-21 14:44 | XMS_ITS | Continuity of Care Document ---
Author Organization [facility] Huy lt Address [address] [place] [address]- Care Team Providers Care Well Treatment Offsider Name Role Phone Hay AGUIRRE, Alden Agudelo Primary Care Physician [phone] [facility](s): 08/06/21 - 09/05/21 [facility] Adult [address] [place] [address]- Allergies, Adverse Reactions, Alerts Substance Reaction Severity [...] Vaccine (oldterm) 10/12/97 Given 1Result Comment: [09/07/2017] [id number] 2Result Comment: [07/27/2017] AFLURIA [id number] 3Admin Note: DECLINED 4Admin Note: pt delcined Medications acetaminophen 325 mg oral tablet 650 mg, By Mouth, Every 6 hours, Refills 0, Maintenance, 09/23/17 8:28:50 Start Date: 09/23/17 Status: Ordered Aspirin Tablet 325 mg, By [...] 1 Refills, Maintenance, 05/08/21 8:44:00 EDT, [facility], Duplicate script, 156, cm, 01/05/21 [...] capsule, Refills 3, Route to Pharmacy Electronically, [facility], 156, cm, 01/05/21 6:17:00 EDT, Height, 69.6, kg, 01/04/21 10:03:00 EDT, Dry Weight Start Date: 06/25/21 Status: Ordered Lipitor 40 mg oral tablet 1 tablet = 40 mg, By Mouth, Daily, # 90 tablet, 3 Refills, Maintenance, 08/14/21 10:28:00 EDT, Tablet, [facility], 156, cm, 01/05/21 6:17:00 EDT, Height, 69.6, kg, 01/04/21 10:03:00 EDT, Dry Weight Start Date: 08/14/21 Status: Ordered LORazepam 1 mg oral tablet 1 tablet, By Mouth, Daily, PRN NEEDED FOR ANXIETY, # 10 tablet, 4 Refills, Acute 01/01/22 13:01:00 EDT, 09/03/21 13:16:00 EST, [facility], 156, cm, 01/05/21 6:17:00 EDT, Height, 69.6, kg, 01/04/21 10:03:00 EDT, Dry Weight Start Date: 09/03/21 Stop Date: 01/01/22 Status: Ordered MiraLax Powder 1 pack/packet = [...] Mouth, Daily at bedtime, PRN NEEDED FOR SLEEP TO LAST, for 30 days, # 14 tablet, 5 Refills, Acute 08/07/22 7:06:00 EDT, 02/08/22 7:06:00 EDT, [facility], 156, cm, 01/05/21 6:17:00 EDT, Height, 69.6, kg, 01/04/21 10:03:00 E... Start Date: 02/08/22 Stop Date: 08/07/22 Status: Ordered zolpidem 5 mg oral tablet 1 tablet, By Mouth, Daily at bedtime, PRN NEEDED FOR SLEEP TO LAST, for 30 days, # 14 tablet, 5 Refills, Acute 02/08/22 7:06:00 EDT, 08/12/21 7:06:00 EDT, [facility], 156, cm, 01/05/21 6:17:00 EDT, Height, 69.6, kg, 01/04/21 10:03:00 E... Start Date: 08/12/21 Stop Date: 02/08/22 Status: Ordered Problem List Condition Effective Dates [...]
--- OUTSIDE RECORDS SUMMARY | 2024-07-21 14:44 | XMS_ITS | Continuity of Care Document ---
Author Organization [facility] [place] Huy lt Address [address] [place] [address]- Care Team Providers Care Student Financial Aid Manager Name Role Phone Hay AGUIRRE, Alden Agudelo Primary Care Physician [facility]): 04/09/21 - 05/09/21 [facility] Adult [address] [place] [address]- Allergies, Adverse Reactions, Alerts Substance Reaction Severity [...] Vaccine (oldterm) 10/12/97 Given 1Result Comment: [09/07/2017] [id number] 2Result Comment: [07/27/2017] AFLURIA [id number] 3Admin Note: DECLINED 4Admin Note: pt delcined [...] 1 Refills, Maintenance, 05/08/21 8:44:00 EDT, [facility], Duplicate script, 156, cm, 01/05/21 [...] 06/14/20 8:39:00 EDT, Route to Pharmacy Electronically, [facility], 155.9, cm, 06/14/20 8:07:00 EDT, Height, 66.7, kg, 02/01/19 11:39:00 EDT, Dry We... Start Date: 06/14/20 Status: Ordered Lipitor 40 mg oral tablet 1 tablet = 40 mg, By Mouth, Daily, # 90 tablet, 1 Refills, Maintenance, 12/26/20 11:08:00 EDT, Tablet, [facility], 156, cm, 12/26/20 8:15:00 EDT, Height, 66.7, kg, 02/01/19 11:39:00 EDT, Dry Weight Start Date: 12/26/20 Status: Ordered LORazepam 1 mg oral tablet 1 tablet, By Mouth, Daily, PRN NEEDED FOR ANXIETY, # 10 tablet, 2 Refills, Acute 07/11/21 16:08:00 EDT, 04/10/21 16:08:00 EDT, [facility], 156, cm, 01/05/21 6:17:00 EDT, Height, 69.6, kg, 01/04/21 10:03:00 EDT, Dry Weight Start Date: 04/10/21 Stop Date: 07/11/21 Status: Ordered MiraLax Powder 1 pack/packet = [...]
--- OUTSIDE RECORDS SUMMARY | 2024-07-21 14:44 | XMS_ITS | Continuity of Care Document ---
Author Organization [facility] Huy lt Address [address] [place] [address]- Care Team Providers Care Patient Support Partner Name Role Phone Alden Guido MD Primary Care Physician [phone] Encounter [facility] Date(s): 01/10/20 - 01/17/20 [facility] [address] [place] [address]- [facility] Attending Physician: Alden Guido MD Allergies, Adverse [...] Vaccine (oldterm) 10/12/97 Given 1Result Comment: [09/07/2017] [id number] 2Result Comment: [07/27/2017] AFLURIA [id number] 3Admin Note: DECLINED 4Admin Note: pt delcined [...] days, # 10 tablet, 2 Refills, Acute 04/09/20 10:16:00 EDT, 01/10/20 10:16:00 EDT, [facility], 155.9, cm, 01/10/20 9:47:00 EDT, Height, 66.7, kg, 02/01/19 11:39:00 EDT, . Start Date: 01/10/20 Stop Date: 04/09/20 Status: Ordered Problem List Condition Effective Dates Status Health Status Inform ant Allergic rhinitis(Confirmed) Active Anxiety(Confirmed) Active Apocrine metaplasia of breast(Confirmed) Active Cigarette smoker(Confirmed) 04/19/12 Active Family history of amyloidosi s - mother(Confirmed) Active Prediabetes(Confirmed) Active Hypercholesterolemia(Confirmed) Active Insomnia, idiopathic(Confirmed) Active Depression, major(Confirmed) Active Osteoarthritis of right knee(Confirmed) Active Osteoporosis(Confirmed) Active Vital Signs Most recent to oldest [Reference Range]: 1 Height 155.9 cm (01/10/20 9:47 AM) Weight 68.5 kg (01/10/20 9:47 AM) Oxygen Saturation [94-100 %] 98 % (01/10/20 9:47 AM) Pulse Rate [55-90 bpm] 70 bpm (01/10/20 9:47 AM) Body Mass Index [18.5-24.99] 28.18 *H* (01/10/20 9:47 AM) Blood Pressure [90-138/55-84 mm Hg] 124/ 64mm Hg (01/10/20 9:47 AM) Respiratory Rate [16-30 br/min] 14 br/mi n *L* (01/10/20 9:47 AM) Mode of Delivery (Oxygen) Room air (01/10/20 9:47 AM) Blood pressure sites Arm, left (01/10/20 9:47 AM) Weight Obtained Via Standing scale (01/10/20 9:47 AM) Social History Social History Type Response Smoking Status Current every day hernesto alvarez entered on: 03/17/18 Sex
--- OUTSIDE RECORDS SUMMARY | 2024-07-21 14:44 | XMS_ITS | Continuity of Care Document ---
Author Organization [facility] Huy lt Address [address] [place] [address]- Care Team Providers Care Utility Aircrewman Name Role Phone Hay AGUIRRE, Alden Agudelo Primary Care Physician [phone] [facility](s): 10/06/23 - 11/05/23 [facility] Adult [address] [place] [address]- Allergies, Adverse Reactions, Alerts Substance Reaction Severity [...] Vaccine (oldterm) 10/12/97 Given 1Result Comment: [09/07/2017] [id number] 2Result Comment: [07/27/2017] AFLURIA [id number] 3Admin Note: DECLINED 4Admin Note: pt delcined Medications aspirin 325 mg oral delayed release tablet 325 mg, 1, tablet, By Mouth, Daily, # 30 tablet, Refills 0, Tot. Refills 0, Maintenance, 07/29/23 13:51:00 EDT, Route to Pharmacy Electronically, [facility], Partial fill upon patient request if the prescription is for a schedule II opio... Start Date: 07/29/23 Status: Ordered atorvastatin 40 mg oral tablet 1 tablet, By Mouth, Daily, # 90 tablet, 1 Refills, Maintenance, 10/06/23 18:41:00 EST, [facility], 152.4, cm, 08/19/23 14:08:00 EST, Height, 65.4, kg, 07/29/23 12:55:00 EDT, Dry Weight Start Date: 10/06/23 Status: Ordered FLUoxetine 20 mg oral capsule 1, capsule, By Mouth, Daily, # 90 capsule, Refills 1, Tot. Refills 1, Maintenance, 10/06/23 18:42:00 EST, Route to Pharmacy Electronically, [facility], 152.4, cm, 08/19/23 14:08:00 EST, Height, 65.4, kg, 07/29/23 12:55:00 EDT, Dry Weight Start Date: 10/06/23 Status: Ordered LORazepam 1 mg oral tablet 1 tablet, By Mouth, Daily, NEEDED FOR ANXIETY., # 10 tablet, 4 Refills, Maintenance, 09/01/23 16:05:00 EST, [facility], 152.4, cm, 08/19/23 14:08:00 EST, Height, 65.4, kg, 07/29/23 12:55:00 EDT, Dry Weight Start Date: 09/01/23 Stop Date: 01/31/24 Status: Ordered zolpidem 5 mg oral tablet 1 tablet, By Mouth, Daily at bedtime, PRN NEEDED FOR SLEEP, # 14 tablet, 5 Refills, Maintenance,03/26/23 18:03:00 EDT, [facility], 156, cm, 08/29/22 14:28:00 EST, [...] Team Personnel Name: Fay Wong RN Position: [facility] RN Member Role: Primary Care Nurse Name: Alden Guido MD Position: [facility] Physician - Primary Care Member Role: PCP Address: Address: [address] [place] [address]- Name: Vianney Alexander RN Position: [facility] RN Member Role: Primary Care Nurse Name: Caty Ferrari RN Position: [facility] RN Member Role: Primary Care Nurse Name: Juliann Deal RN Position: [facility] Hospital Deputy Clerk Of [address] Member Role: Primary Care Nurse Care Team Related Persons Name: IBNDU ANGELES Address: home [address] [place] [phone]
--- OUTSIDE RECORDS SUMMARY | 2024-07-21 14:44 | XMS_ITS | Continuity of Care Document ---
Author Organization [facility] Huy lt Address [address] [place] [address]- Care Team Providers Care Reception Manager Name Role Phone Hay AGUIRRE, Alden Agudelo Primary Care Physician [facility]s): 06/26/22 - 07/26/22 [facility] Adult [address] [place] [address]- Allergies, Adverse Reactions, Alerts Substance Reaction Severity [...] Vaccine (oldterm) 10/12/97 Given 1Result Comment: [09/07/2017] [id number] 2Result Comment: [07/27/2017] AFLURIA [id number] 3Admin Note: DECLINED 4Admin Note: pt delcined Medications acetaminophen 325 mg oral tablet 650 mg, By Mouth, Every 6 hours, Refills 0, Maintenance, 09/23/17 8:28:50 Start Date: 09/23/17 Status: Ordered buPROPion 300 mg/24 hours (XL) oral tablet, extended release 1 tablet, By Mouth, Daily, # 90 tablet, 1 Refills, Maintenance, 06/27/22 15:47:00 EDT, [facility], 156, cm, 06/10/22 8:27:00 EDT, Height, 69.6, kg, 01/04/21 10:03:00 EDT, Dry Weight Start Date: 06/27/22 Status: Ordered FLUoxetine 10 mg oral capsule 1, capsule, By Mouth, Daily, # 90 capsule, Refills 3, Maintenance, 06/27/22 17:03:00 EDT, Route to Pharmacy Electronically, [facility], 156, cm, 06/10/22 8:27:00 EDT, Height, 69.6, kg, 01/04/21 10:03:00 EDT, Dry Weight Start Date: 06/27/22 Status: Ordered Lipitor 40 mg oral tablet 1 tablet = 40 mg, By Mouth, Daily, # 90 tablet, 3 Refills, Maintenance, 08/14/21 10:28:00 EDT, Tablet, [facility], 156, cm, 01/05/21 6:17:00 EDT, Height, 69.6, kg, 01/04/21 10:03:00 EDT, Dry Weight Start Date: 08/14/21 Status: Ordered LORazepam 1 mg oral tablet 1 tablet, By Mouth, Daily, PRN NEEDED FOR ANXIETY, # 10 tablet, 4 Refills, Maintenance, 04/21/2217:33:00 EDT, [facility], 156, cm, 01/05/21 [...] Refills, Maintenance, 06/10/22 17:39:00 EDT, [facility],... Start Date: 06/10/22 Status: Ordered [...] 9:55:00 EST, 03/04/22 9:55:00 EDT, [facility], 156, cm, 01/05/21 6:17:00 EDT, [...] Personnel Name: Alden Guido MD Address: Address: [address] [place] [id number]
--- OUTSIDE RECORDS SUMMARY | 2024-07-21 14:44 | XMS_ITS | Continuity of Care Document ---
Author Organization [facility] Huy lt Address [address] [place] [address]- Care Team Providers Care Seed Potato Arranger Name Role Phone Hay AGUIRRE, Alden Agudelo Primary Care Physician [facility] Date(s): 11/24/22 - 12/24/22 [facility] Adult [address] [place] [address]- Allergies, Adverse Reactions, Alerts Substance Reaction Severity [...] Vaccine (oldterm) 10/12/97 Given 1Result Comment: [09/07/2017] [id number] 2Result Comment: [07/27/2017] AFLURIA [id number] 3Admin Note: DECLINED 4Admin Note: pt delcined Medications FLUoxetine 20 mg oral capsule 20 mg, 1, capsule, By Mouth, Daily, Increase in dose, # 30 capsule, Refills 5, Tot. Refills 5, Maintenance, 08/29/22 14:56:00 EST, Route to Pharmacy Electronically, [facility], Partial fill upon patient request if the prescription is for... Start Date: 08/29/22 Status: Ordered Lipitor 40 mg oral tablet 1 tablet = 40 mg, By Mouth, Daily, # 90 tablet, 1 Refills, Maintenance, 09/05/22 10:12:00 EST, Tablet, [facility], 156, cm, 08/29/22 [...] 15:17:00 EDT, 08/30/22 15:17:00 EST, [facility], 156, cm, 08/29/22 14:28:00 EST, [...] Team Personnel Name: Fay Wong RN Position: [facility] RN Member Role: Primary Care Nurse Name: Alden Guido MD Position: [facility] Primary Care Physician Member Role: PCP Address: Address: [address] [place] [id number]- Name: Vianney Alexander RN Position: [facility] RN Member Role: Primary Care Nurse Name: Caty Ferrari RN Position: [facility] RN Member Role: Primary Care Nurse Name: Juliann Deal RN Position: [facility] Hospital Chemistry Tutor Member Role: Primary Care Nurse Care Team Related Persons Name: BINDU ANGELES Address: [address] [place] [id number]
--- OUTSIDE RECORDS SUMMARY | 2024-07-21 14:44 | XMS_ITS | Continuity of Care Document ---
Author Organization [facility] Huy lt Address [address] [place] [address]- Care Team Providers Care Print Manager Name Role Phone Hay AGUIRRE, Alden R Primary Care Physician Encounter [facility] [place] Date(s): 06/10/22 - 06/17/22 [facility] Adult [address] [place] [address]- Encounter Diagnosis COVID-19 virus infection(Discharge Diagnosis) - 06/10/22 Attending Physician: Kaykay Gunn NP Allergies, Adverse Reactions, Alerts Substance Reaction Severity [...] Vaccine (oldterm) 10/12/97 Given 1Result Comment: [09/07/2017] [id number] 2Result Comment: [07/27/2017] AFLURIA [id number] 3Admin Note: DECLINED 4Admin Note: pt delcined Medications acetaminophen 325 mg oral tablet 650 mg, By Mouth, Every 6 hours, Refills 0, Maintenance, 09/23/17 8:28:50 Start Date: 09/23/17 Status: Ordered buPROPion 300 mg/24 hours (XL) oral tablet, extended release 1 tablet = 300 mg, By Mouth, Daily, # 90 tablet, 1 Refills, Maintenance, 12/05/21 7:46:00 EST, [facility], Duplicate script, 156, cm, 01/05/21 6:17:00 EDT, Height, 69.6, kg, 01/04/2110:03:00 EDT, Dry Weight Start Date: 12/05/21 Status: Ordered FLUoxetine 10 mg oral capsule 1, capsule, By Mouth, Daily, # 90 capsule, Refills 3, Route to Pharmacy Electronically, [facility], 156, cm, 01/05/21 6:17:00 EDT, Height, 69.6, kg, 01/04/21 10:03:00 EDT, Dry Weight Start Date: 06/25/21 Status: Ordered Lipitor 40 mg oral tablet 1 tablet = 40 mg, By Mouth, Daily, # 90 tablet, 3 Refills, Maintenance, 08/14/21 10:28:00 EDT, Tablet, [facility], 156, cm, 01/05/21 6:17:00 EDT, Height, 69.6, kg, 01/04/21 10:03:00 EDT, Dry Weight Start Date: 08/14/21 Status: Ordered LORazepam 1 mg oral tablet 1 tablet, By Mouth, Daily, PRN NEEDED FOR ANXIETY, # 10 tablet, 4 Refills, Maintenance, 04/21/2217:33:00 EDT, [facility], 156, cm, 01/05/21 [...] 9:55:00 EST, 03/04/22 9:55:00 EDT, [facility], 156, cm, 01/05/21 6:17:00 EDT, Height, 69.6, kg, 01/04/21 10:03:00 EDT, Dry Weight Start Date: 03/04/22 Stop Date: 09/04/22 Status: Ordered Problem List Condition Effective Dates Status Health Status Inform ant Allergic rhinitis(Confirmed) Active Anxiety(Confirmed) Active Apocrine metaplasia of breast(Confirmed) Active Cigarette smoker(Confirmed) 04/19/12 Active Family history of amyloidosi s - mother(Confirmed) Active Prediabetes(Confirmed) Active History of leukocytosis(Confirmed) Active Hypercholesterolemia(Confirmed) Active Insomnia, idiopathic(Confirmed) Active Depression, major(Confirmed) Active Osteoarthritis of right knee(Confirmed) Active Osteopenia(Confirmed) Active Osteoporosis(Confirmed) Active Diagnosis Diagnosis Type Effective Dates Health Status Cl inical Service Informant COVID-19 virus infection Discharge Diagnosis 06/10/22 Vital Signs Most recent to oldest [Reference Range]: 1 Height 156 cm (06/10/22 8:27 AM) Social History Social History Type Response Smoking Status Current every day hernesto alvarez entered on: 03/17/18 Sex Care Team Personnel Name: Hay AGUIRRE, Alden Agudelo Address: [address] [place] [id number] [[email or web address]]
--- OUTSIDE RECORDS SUMMARY | 2024-07-21 14:44 | XMS_ITS | Continuity of Care Document ---
Author Organization [facility] ter Address [address] [place] [id number]- Care Team Providers Care Hogshead Liner Name Role Phone Hay AGUIRRE, Alden Agudelo Primary Care Physician [place] [facility] [facility] [place] [id number] Date(s): 01/04/21 - 01/05/[address] [address] Discharge Disposition: A-Transfer VNA/Home Health Attending Physician: Bulmaro Marte MD Admitting Physician: [...] Vaccine (oldterm) 10/12/97 Given 1Result Comment: [09/07/2017] [id number] 2Result Comment: [07/27/2017] AFLURIA [id number] 3Admin Note: DECLINED 4Admin Note: pt delcined Medications acetaminophen 325 mg oral tablet 650 mg, By Mouth, Every 6 hours, Refills 0, Maintenance, 09/23/17 8:28:50 Start Date: 09/23/17 Status: Ordered Acetaminophen Tablet 650 mg, Tablet, By Mouth, 01/05/21 14:00:00 EDT Start Date: 01/05/21 Stop Date: 01/05/21 Status: Completed Ambien 5 mg oral tablet 1 tablet = 5 mg, By Mouth, Daily at bedtime, PRN Sleep, 6 month supply, # 14 tablet, 5 Refills, Maintenance, 01/02/21 11:11:00 EDT, Tablet, [facility], 156, cm, 12/26/20 8:15:00 EDT,Height, [...] Refills, Maintenance, 10/17/20 12:59:00 EST, [facility], Duplicate script, 155.9, cm, 06/14/20 [...] opioid drug. Start Date: 01/05/21 Status: Ordered Dilaudid Tablet 4 mg, Tablet, By Mouth, Every 3 hours, PRN for Pain , Moderate, Routine, 01/04/21 13:37:00 EDT Start Date: 01/04/21 Stop Date: 01/11/21 Status: Ordered FLUoxetine 10 mg oral capsule 10 mg, 1, capsule, By Mouth, Daily, # 90 capsule, Refills 3, Tot. Refills 3, Maintenance, 06/14/20 8:39:00 EDT, Route to Pharmacy Electronically, [facility], 155.9, cm, 06/14/20 8:07:00 EDT, Height, 66.7, kg, 02/01/19 11:39:00 EDT, Dry We... Start Date: 06/14/20 Status: Ordered HYDROmorphone 4 mg oral tablet See Instructions, PRN Pain , Moderate, Take 0.5-1 tablets By Mouth Every 3 hours as needed for pain, # 56 tablet, 0 Refills, Acute 01/12/21 10:29:00 EDT, 01/05/21 10:28:00 EDT, Tablet, [facility], Partial fill upon patient request if the... Start Date: 01/05/21 Stop Date: 01/12/21 Status: Ordered Lipitor 40 mg oral tablet 1 tablet = 40 mg, By Mouth, Daily, # 90 tablet, 1 Refills, Maintenance, 12/26/20 11:08:00 EDT, Tablet, [facility], 156, cm, 12/26/20 8:15:00 EDT, Height, 66.7, kg, 02/01/19 11:39:00 EDT, Dry Weight Start Date: 12/26/20 Status: Ordered LORazepam 1 mg oral tablet 1 tablet = 1 mg, By Mouth, Daily, PRN as needed for anxiety, for 30 days, # 10 tablet, 2 Refills, Acute 03/10/21 13:17:00 EDT, 12/10/20 13:17:00 EST, [facility], 155.9, cm, 06/14/20 8:07:00 EDT, Height, 66.7, kg, 02/01/19 11:39:00 EDT, Start Date: 12/10/20 Stop Date: 03/10/21 Status: [...] right knee(Confirmed) Active Osteopenia(Confirmed) Active Osteoporosis(Confirmed) Active Vital Signs Most recent to oldest [Reference Range]: 1 2 3 Height 156 cm (01/05/21 6:17 AM) 156 cm (01/05/21 3:35 AM) 156 cm (01/04/21 11:54 PM) Weight 69.6 kg (01/04/21 11:49 AM) 69.6 kg (01/04/21 10:03 AM) Oxygen Saturation [94-100 %] 99 % (01/05/21 6:17 AM) 97 % (01/05/21 3:35 AM) 97 % (01/04/21 11:54 PM) Pulse Rate [55-90 bpm] 65 bpm (01/05/21 6:17 AM) 69 bpm (01/05/21 3:35 AM) 73 bpm (01/04/21 11:54 PM) Body Mass Index [18.5-24.99] 28.6 *H* (01/04/21 11:49 AM) 28.6 *H* (01/04/21 10:03 AM) Blood Pressure [90-138/55-84 mm Hg] 140/78mm Hg *H* (01/05/21 6:17 AM) 129/72mm Hg (01/05/21 3:35 AM) 112/69mm Hg (01/04/21 11:54 PM) Respiratory Rate [16-30 br/min] 18 br/min (01/05/21 4:26 PM) 18 br/min (01/05/21 2:25 PM) 18 br/min (01/05/21 2:25 PM) Temperature [96.8-100.4 DegF] 97.8 DegF (01/05/21 6:17 AM) 98.6 DegF (01/05/21 3:35 AM) 98.1 DegF (01/04/21 11:54 PM) Mode of Delivery (Oxygen) Room air (01/05/21 6:17 AM) Room air (01/05/21 3:35 AM) Room air (01/04/21 11:54 PM) Blood pressure sites Arm, right (01/05/21 6:17 AM) Arm, right (01/05/21 3:35 AM) Arm, right (01/04/21 11:54 PM) Temperature Route Oral (01/05/21 6:17 AM) Oral (01/05/21 3:35 AM) Oral (01/04/21 11:54 PM) Dry Weight 69.6 kg (01/04/21 10:03 AM) Social History Social History Type Response Smoking Status Current every day hernesto alvarez entered on: 03/17/18 Sex
--- OUTSIDE RECORDS SUMMARY | 2024-07-21 14:44 | XMS_ITS | Continuity of Care Document ---
Author Organization [facility] Address [address] [facility], [address] [place] [address]- Care Team Providers Care Optical Instrument Repairer Name Role Phone Alden Guido MD Primary Care Physician [phone] Encounter 10/16/22 - 10/23/22 [facility] [address], [address] [place] [address]- Attending Physician: Alden Guido MD Admitting Physician: [...] Vaccine (oldterm) 10/12/97 Given 1Result Comment: [09/07/2017] [id number] 2Result Comment: [07/27/2017] AFLURIA [id number] 3Admin Note: DECLINED 4Admin Note: pt delcined Medications FLUoxetine 20 mg oral capsule 20 mg, 1, capsule, By Mouth, Daily, Increase in dose, # 30 capsule, Refills 5, Tot. Refills 5, Maintenance, 08/29/22 14:56:00 EST, Route to Pharmacy Electronically, [facility], Partial fill upon patient request if the prescription is for... Start Date: 08/29/22 Status: Ordered Lipitor 40 mg oral tablet 1 tablet = 40 mg, By Mouth, Daily, # 90 tablet, 1 Refills, Maintenance, 09/05/22 10:12:00 EST, Tablet, [facility], 156, cm, 08/29/22 14:28:00 EST, [...] 15:17:00 EDT, 08/30/22 15:17:00 EST, [facility], 156, cm, 08/29/22 14:28:00 EST, [...] Response Smoking Status Current every day sm antonio entered on: 03/17/18 Sex Patient Care team information Care Team Personnel Name: Fay Wong RN Position: [facility] RN Member Role: Primary Care Nurse Name: Alden Guido MD Position: [facility] Primary Care Physician Member Role: PCP Address: Address: [address] [place] [id number]- Name: Vianney Alexander RN Position: [facility] RN Member Role: Primary Care Nurse Name: Caty Ferrari RN Position: [facility] RN Member Role: Primary Care Nurse Name: Say WORRELL, Juliann Position: [facility] Cast Iron Drain Pipe Layer Member Role: Primary Care Nurse Care Team Related Persons Name: BINDU ANGELES Address: home [address] [place] [id number]
--- OUTSIDE RECORDS SUMMARY | 2024-07-21 14:44 | XMS_ITS | Continuity of Care Document ---
Author Organization [facility] Huy lt Address [address] [place] [address]- Care Team Providers Care Bite Block Maker Name Role Phone Hay AGUIRRE, Alden Agudelo Primary Care Physician Encounter [facility] Date(s): 06/10/22 - 07/10/22 [facility] Adult [address] [place] [address]- Allergies, Adverse Reactions, Alerts Substance Reaction Severity [...] Vaccine (oldterm) 10/12/97 Given 1Result Comment: [09/07/2017] [id number] 2Result Comment: [07/27/2017] AFLURIA [id number] 3Admin Note: DECLINED 4Admin Note: pt delcined Medications acetaminophen 325 mg oral tablet 650 mg, By Mouth, Every 6 hours, Refills 0, Maintenance, 09/23/17 8:28:50 Start Date: 09/23/17 Status: Ordered buPROPion 300 mg/24 hours (XL) oral tablet, extended release 1 tablet, By Mouth, Daily, # 90 tablet, 1 Refills, Maintenance, 06/27/22 15:47:00 EDT, [facility], 156, cm, 06/10/22 8:27:00 EDT, Height, 69.6, kg, 01/04/21 10:03:00 EDT, Dry Weight Start Date: 06/27/22 Status: Ordered FLUoxetine 10 mg oral capsule 1, capsule, By Mouth, Daily, # 90 capsule, Refills 3, Maintenance, 06/27/22 17:03:00 EDT, Route to Pharmacy Electronically, [facility], 156, cm, 06/10/22 8:27:00 EDT, Height, 69.6, kg, 01/04/21 10:03:00 EDT, Dry Weight Start Date: 06/27/22 Status: Ordered Lipitor 40 mg oral tablet 1 tablet = 40 mg, By Mouth, Daily, # 90 tablet, 3 Refills, Maintenance, 08/14/21 10:28:00 EDT, Tablet, [facility], 156, cm, 01/05/21 6:17:00 EDT, Height, 69.6, kg, 01/04/21 10:03:00 EDT, Dry Weight Start Date: 08/14/21 Status: Ordered LORazepam 1 mg oral tablet 1 tablet, By Mouth, Daily, PRN NEEDED FOR ANXIETY, # 10 tablet, 4 Refills, Maintenance, 04/21/2217:33:00 EDT, [facility], 156, cm, 01/05/21 [...] Refills, Maintenance, 06/10/22 17:39:00 EDT, [facility],... Start Date: 06/10/22 Status: Ordered [...] 9:55:00 EST, 03/04/22 9:55:00 EDT, [facility], 156, cm, 01/05/21 6:17:00 EDT, [...] Personnel Name: Alden Guido MD Address: Address: [address] [place] [id number]
--- OUTSIDE RECORDS SUMMARY | 2024-07-21 14:45 | XMS_ITS | Continuity of Care Document ---
Author Organization [facility] Address [address] [place] [address]- Care Team Providers Care Soil Analyst Name Role Phone Hay AGUIRRE, Alden Agudelo Primary Care Physician Encounter [facility] [place] Date(s): 12/05/21 - 01/04/22 [facility] Adult [address] [place] [address]- Allergies, Adverse Reactions, Alerts Substance Reaction Severity [...] Vaccine (oldterm) 10/12/97 Given 1Result Comment: [09/07/2017] [id number] 2Result Comment: [07/27/2017] AFLURIA [id number] 3Admin Note: DECLINED 4Admin Note: pt delcined [...] tablet, 1 Refills, Maintenance, 12/05/21 7:46:00 EST, [facility], Duplicate script, 156, cm, 01/05/21 6:17:00 EDT, Height, 69.6, kg, 01/04/2110:03:00 EDT, Dry Weight Start Date: 12/05/21 Status: Ordered celecoxib 200 mg oral capsule [...] 3, Route to Pharmacy Electronically, [facility], 156, cm, 01/05/21 6:17:00 EDT, [...] ANXIETY, # 10 tablet, 4 Refills, Acute 06/02/22 17:34:00 EDT, 12/31/21 17:33:00 EDT, [facility], 156, cm, 01/05/21 6:17:00 EDT, Height, 69.6, kg, 01/04/21 10:03:00 EDT, Dry Weight Start Date: 12/31/21 Stop Date: 06/02/22 Status: Ordered MiraLax Powder 1 pack/packet = [...] Acute 08/07/22 7:06:00 EDT, 02/08/22 7:06:00 EDT, [facility], 156, cm, 01/05/21 6:17:00 EDT, Height, 69.6, kg, 01/04/21 10:03:00 E... Start Date: 02/08/22 Stop Date: 08/07/22 Status: Ordered zolpidem 5 mg oral tablet 1 tablet, By Mouth, Daily at bedtime, PRN NEEDED FOR SLEEP TO LAST, for 30 days, # 14 tablet, 5 Refills, Acute 02/08/22 7:06:00 EDT, 08/12/21 7:06:00 EDT, [facility], 156, cm, 01/05/21 6:17:00 EDT, [...]
--- OUTSIDE RECORDS SUMMARY | 2024-07-21 14:45 | XMS_ITS | Continuity of Care Document ---
Author Organization [facility] Address [address] [place] [address]- Care Team Providers Care Transaction Processor Name Role Phone Hay AGUIRRE, Alden Agudelo Primary Care Physician Encounter [facility] [place] Date(s): 12/26/20 - 01/25/21 [facility] [address] [place] [address]- Attending Physician: Kavon Tracey Admitting Physician: Kavon Tracey Referring Physician: AdmtrKavon Allergies, Adverse Reactions, Alerts Substance Reaction Severity [...] Vaccine (oldterm) 10/12/97 Given 1Result Comment: [09/07/2017] [id number] 2Result Comment: [07/27/2017] AFLURIA [id number] 3Admin Note: DECLINED 4Admin Note: pt delcined Medications acetaminophen 325 mg oral tablet 650 mg, By Mouth, Every 6 hours, Refills 0, Maintenance, 09/23/17 8:28:50 Start Date: 09/23/17 Status: Ordered Ambien 5 mg oral tablet 1 tablet = 5 mg, By Mouth, Daily at bedtime, PRN Sleep, 6 month supply, # 14 tablet, 5 Refills, Maintenance, 01/02/21 11:11:00 EDT, Tablet, [facility], 156, cm, 12/26/20 8:15:00 EDT,Height, [...] tablet, 1 Refills, Maintenance, 10/17/20 12:59:00 EST, [facility], Duplicate script, 155.9, cm, 06/14/20 [...] 06/14/20 8:39:00 EDT, Route to Pharmacy Electronically, [facility], 155.9, cm, 06/14/20 8:07:00 EDT, Height, 66.7, kg, 02/01/19 11:39:00 EDT, Dry We... Start Date: 06/14/20 Status: Ordered Lipitor 40 mg oral tablet 1 tablet = 40 mg, By Mouth, Daily, # 90 tablet, 1 Refills, Maintenance, 12/26/20 11:08:00 EDT, Tablet, [facility], 156, cm, 12/26/20 8:15:00 EDT, Height, 66.7, kg, 02/01/19 11:39:00 EDT, Dry Weight Start Date: 12/26/20 Status: Ordered LORazepam 1 mg oral tablet 1 tablet = 1 mg, By Mouth, Daily, PRN as needed for anxiety, for 30 days, # 10 tablet, 2 Refills, Acute 03/10/21 13:17:00 EDT, 12/10/20 13:17:00 EST, [facility], 155.9, cm, 06/14/20 8:07:00 EDT, [...]
--- OUTSIDE RECORDS SUMMARY | 2024-07-21 14:45 | XMS_ITS | Continuity of Care Document ---
Author Organization [facility] Address [address] [place] [address]- Care Team Providers Care Asset Protection Greeter Name Role Phone Hay AGUIRRE, Alden Agudelo Primary Care Physician [phone] Encounter [facility] Date(s): 03/19/23 - 04/18/23 [facility] Adult [address] [place] [address]- Allergies, Adverse Reactions, Alerts Substance Reaction Severity [...] Vaccine (oldterm) 10/12/97 Given 1Result Comment: [09/07/2017] [id number] 2Result Comment: [07/27/2017] AFLURIA [id number] 3Admin Note: DECLINED 4Admin Note: pt delcined Medications FLUoxetine 20 mg oral capsule 1, capsule, By Mouth, Daily, # 30 capsule, Refills 5, Maintenance, 03/26/23 18:02:00 EDT, Route to Pharmacy Electronically, [facility], 156, cm, 08/29/22 14:28:00 EST, Height Start Date: 03/26/23 Status: Ordered Lipitor 40 mg oral tablet 1 tablet = 40 mg, By Mouth, Daily, # 90 tablet, 1 Refills, Maintenance, 03/19/23 15:38:00 EDT, Tablet, [facility], 156, cm, 08/29/22 14:28:00 EST, Height Start Date: 03/19/23 Status: Ordered LORazepam 1 mg oral tablet 1 tablet, By Mouth, Daily, PRN NEEDED FOR ANXIETY, # 10 tablet, 4 Refills, Maintenance, 233:42:00 EDT, [facility], 156, cm, 08/29/22 14:28:00 EST, Height Start Date: 02/12/23 Stop Date: 08/15/23 Status: Ordered meloxicam 15 mg oral tablet 1 tablet = 15 mg, By Mouth, Daily, # 30 tablet, 0 Refills, Maintenance, 04/15/23 10:49:00 EDT, Tablet, Partial fill upon patient request if the prescription is for a schedule II opioid drug. Start Date: 04/15/23 Status: Ordered zolpidem 5 mg oral tablet 1 tablet, By Mouth, Daily at bedtime, PRN NEEDED FOR SLEEP, # 14 tablet, 5 Refills, Maintenance,03/26/23 18:03:00 EDT, [facility], 156, cm, 08/29/22 14:28:00 EST, [...] Team Personnel Name: Fay Wong RN Position: [facility] RN Member Role: Primary Care Nurse Name: Alden Guido MD Position: [facility] Physician - Primary Care Member Role: PCP Address: Address: [address] [place] [address]- Name: Vianney Alexander RN Position: [facility] RN Member Role: Primary Care Nurse Name: Caty Ferrari RN Position: [facility] RN Member Role: Primary Care Nurse Name: Juliann Deal RN Position: [facility] Member Role: Primary Care Nurse Care Team Related Persons Name: BINDU ANGELES Address: home [address] [place] [id number]
--- OUTSIDE RECORDS SUMMARY | 2024-07-21 14:45 | XMS_ITS | Continuity of Care Document ---
Author Organization [facility] Logan Huy lt Address [address] [place] [address]- Care Team Providers Care Accounts Clerk Name Role Phone Hay AGUIRRE, Alden Agudelo Primary Care Physician [facility] - 02/17/24 [facility] Adult [address] [place] [address]- Attending Physician: Jozef Coronel MD Referring Physician: Alden Guido MD Allergies, [...] Vaccine (oldterm) 10/12/97 Given 1Result Comment: [09/07/2017] [id number] 2Result Comment: [07/27/2017] AFLURIA [id number] 3Admin Note: DECLINED 4Admin Note: pt delcined Medications aspirin 325 mg oral delayed release tablet 325 mg, 1, tablet, By Mouth, Daily, # 30 tablet, Refills 0, Tot. Refills 0, Maintenance, 07/29/23 13:51:00 EDT, Route to Pharmacy Electronically, [facility], Partial fill upon patient request if the prescription is for a schedule II opio... Start Date: 07/29/23 Status: Ordered atorvastatin 40 mg oral tablet 1 tablet, By Mouth, Daily, # 90 tablet, 1 Refills, Maintenance, 10/06/23 18:41:00 EST, [facility], 152.4, cm, 08/19/23 14:08:00 EST, Height, 65.4, kg, 07/29/23 12:55:00 EDT, Dry Weight Start Date: 10/06/23 Status: Ordered FLUoxetine 20 mg oral capsule 1, capsule, By Mouth, Daily, # 90 capsule, Refills 1, Tot. Refills 1, Maintenance, 10/06/23 18:42:00 EST, Route to Pharmacy Electronically, [facility], 152.4, cm, 08/19/23 14:08:00 EST, Height, 65.4, kg, 07/29/23 12:55:00 EDT, Dry Weight Start Date: 10/06/23 Status: Ordered LORazepam 1 mg oral tablet 1 tablet, By Mouth, Daily, NEEDED FOR ANXIETY., # 10 tablet, 4 Refills, Maintenance, 09/01/23 16:05:00 EST, [facility], 152.4, cm, 08/19/23 14:08:00 EST, Height, 65.4, kg, 07/29/23 12:55:00 EDT, Dry Weight Start Date: 09/01/23 Stop Date: 01/31/24 Status: Ordered zolpidem 5 mg oral tablet 1 tablet, By Mouth, Daily at bedtime, PRN NEEDED FOR SLEEP, # 14 tablet, 5 Refills, Maintenance,12/08/23 12:17:00 EST, [facility], 152.4, cm, 08/19/23 14:08:00 EST, [...] recent to oldest [Reference Range]: 1 Height 152.40 cm (02/10/24 11:11 AM) Weight 66.5 kg (02/10/24 11:11 AM) Oxygen Saturation [94-100 %] 98 % (02/10/24 11:11 AM) Pulse Rate [55-90 bpm] 77 bpm (02/10/24 11:11 AM) Body Mass Index [18.5-24.99 kg/m2] 28.63 kg/m2 *H* (02/10/24 11:11 AM) Blood Pressure [90-138/55-84 mm Hg] 120/ 86mm Hg (02/10/24 11:11 AM) Mode of Delivery (Oxygen) Room air (02/10/24 11:11 AM) Blood pressure sites Arm, left (02/10/24 11:11 AM) Weight Obtained Via Standing scale (02/10/24 11:11 AM) Social History Social History Type Response Smoking Status Current every day sm oker; Tobacco use times per day: 6-7; entered on: 05/25/17 Sex Consult note * Mellissa Euceda RN: PERFORM, SIGN, VERIFY Event Display: Consult Authored Date: [id number] Patient: CEDRICK ANGELES Age: 63 years Sex: Female : 1960 Associated Diagnoses: None Author: Mellissa Euceda RN Visit Information Referral Request: Non-Surgical. Referring Physician: Jzoef Coronel MD. Results Review Pain Location Left sided sciatica How long have you had pain Ongoing 8 months Pain the result of an injury No Numbness present Yes Left foot/toes, numbnes/tingling Weakness present No Hx of ankle surgery on R Pain Assessment 0-10 Scale Worst pain in last 2 weeks8. Least pain in last 2 weeks3. Aggravating activities Standing Lay on left side, wakes Alleviating activities NONE Loss of bowel/bladder control No Previous Radiology Studies MRI MRI Lower Etc 03/05/23 [facility] X-Ray Lumbar xray 02/10/24 [facility] Previous Treatments Physical Therapy Treatment effectiveDid PT for ankle Previous back/neck surgery No Medications used for pain control Advil Compund (diclofenac, cyclobenzaprine, Gabapentin, Baclofen), etc ? Note * Rebekah Gallego: PERFORM, SIGN, VERIFY Event Display: Patient Education/Instruction Authored Date: [id number] [facility] *[facility] Clinical Summary Name CEDRICK ANGELES Age 63 Years 1960 PCP Hay AGUIRRE, Alden Agudelo PCP Visit Date 02/10/2024 10:57:00 Additional Instructions: Scheduled Appointments?? Future Appointments ?No Future Appointments Scheduled Follow-Up Instructions ?? With: Address: When: Hay AGUIRRE, Alden Agudelo Comments: as needed Diagnosis Sciatica, left side Medications: Please continue your medications until treatment is completed or stopped by your provider. Discuss any questions related to medications with your provider. Medications to Continue with No Changes These medications were not printed or sent to your pharmacy Aspirin (aspirin 325 mg oral delayed release tablet) 1 tab(s) Oral Daily. Refills: 0. Next Dose: Atorvastatin (atorvastatin 40 mg oral tablet) 1 tab(s) Oral Daily. Refills: 1. Next Dose: Fluoxetine (FLUoxetine 20 mg oral capsule) 1 capsule Oral Daily. Refills: 1. Next Dose: Lorazepam (LORazepam 1 mg oral tablet) 1 tab(s) Oral Daily. NEEDED FOR ANXIETY.. Refills: 4. Next Dose: Zolpidem (zolpidem 5 mg oral tablet) 1 tab(s) Oral Daily at Bedtime as needed NEEDED FOR SLEEP. Refills: 5. Next Dose: Allergy Info:?? Percocet Medications Given This Visit Future Orders ?Lumbar Spine 2 or 3 Views? Order Date:02/10/24?- Complete on or after?02/10/24 Future Orders ?Lumbar Spine 2 or 3 Views? Order Date:02/10/24?- Complete on or after?02/10/24 Vital Signs Height 152.40 cm Weight 66.5 kg BMI 28.63 kg/m2 Blood Pressure 120 mm Hg/86 mm Hg Temperature Pulse Rate 77 bpm Respiratory Rate 02 Sat Mode of Delivery 98 %/Room air You can now view a summary of your hospital visit from the comfort of your home through a free online portal called Olery. Olery is a website that allows you to securely view your medical information including discharge summary, medications and follow-up visits. ??You can alsosend a secure electronic message to your doctor???s office to request appointments, renew medications or just ask a question. You can enroll at [email or web address] or register during your next office visit. Disclaimer:?? The information provided is of a general nature and is intended to be used in conjunction with the recommendations and advice of your health care practitioner. ??Every effort has been made to ensure that the information provided is accurate and complete at the time it is provided to you however, as your needs change, or, as new ??information becomes available, different or additional instructions may be required. If you have questions, please consult with your primary care provider or pharmacist, as appropriate. ??This information is not intended to serve as substitution for assessment and evaluation by a qualified health care provider. If you do not have a primary care provider, you may find a [facility] provider by calling [facility] Guide Link at [phone]. [facility], in keeping with [facility] guidance, no longer requires face masks for staff, patientsor visitors in most situations. Similar to time spent indoors at other locations, there is the chance that you were exposed to respiratory viruses during your time with us (such as flu or COVID-19).? If you develop symptoms concerning for a viral respiratory infection, please seek testing (and treatment if indicated) from your medical provider or home test kit. For information about the plan of care including goals and instructions for your diagnosis, please see the patient education orders section of this document. Patient Education Materials?? The content of this educational material or handout may have been modified, supplemented, or adapted from its original content and format to support your individualized medical care. Patient Care team information Care Team Personnel Name: Fay Wong RN Position: [facility] RN Member Role: Primary Care Nurse Name: Alden Guido MD Position: [facility] Physician - Primary Care Member Role: PCP Address: Address: [address] [place] [address]- Name: Vianney Alexander RN Position: [facility] RN Member Role: Primary Care Nurse Name: Caty Ferrari RN Position: [facility] RN Member Role: Primary Care Nurse Name: Juliann Deal RN Position: [facility] Hospital Produce Runner Member Role: Primary Care Nurse Care Team Related Persons Name: BINDU ANGELES Address: [address] [address]
--- OUTSIDE RECORDS SUMMARY | 2024-07-21 14:45 | XMS_ITS | Continuity of Care Document ---
Author Organization [facility] Logan Huy lt Address [address] [place] [address]- Care Team Providers Care Professor Of Counseling Name Role Phone Hay AGUIRRE, Alden Agudelo Primary Care Physician [facility]): 01/19/23 - 02/18/23 [facility] [place] Adult [address] [place] [address]- Allergies, Adverse Reactions, Alerts Substance Reaction Severity [...] Vaccine (oldterm) 10/12/97 Given 1Result Comment: [09/07/2017] [id number] 2Result Comment: [07/27/2017] AFLURIA [id number] 3Admin Note: DECLINED 4Admin Note: pt delcined Medications FLUoxetine 20 mg oral capsule 20 mg, 1, capsule, By Mouth, Daily, Increase in dose, # 30 capsule, Refills 5, Tot. Refills 5, Maintenance, 08/29/22 14:56:00 EST, Route to Pharmacy Electronically, [facility], Partial fill upon patient request if the prescription is for... Start Date: 08/29/22 Status: Ordered Lipitor 40 mg oral tablet 1 tablet = 40 mg, By Mouth, Daily, # 90 tablet, 1 Refills, Maintenance, 09/05/22 10:12:00 EST, Tablet, [facility], 156, cm, 08/29/22 14:28:00 EST, Height, 69.6, kg, 01/04/21 10:03:00EDT, Dry Weight Start Date: 09/05/22 Status: Ordered LORazepam 1 mg oral tablet 1 tablet, By Mouth, Daily, PRN NEEDED FOR ANXIETY, # 10 tablet, 4 Refills, Maintenance, :42:00 EDT, [facility], 156, cm, 08/29/22 14:28:00 EST, Height Start Date: 02/12/23 Stop Date: 08/15/23 Status: Ordered zolpidem 5 mg oral tablet See Instructions, TAKE ONE TABLET BY MOUTH AT BEDTIME NEEDED FOR SLEEP, # 14 tablet, 5 Refills, Maintenance, 09/16/22 17:10:00 EST, [facility], 156, cm, 08/29/22 14:28:00 EST, Height, 69.6, kg, 01/04/21 10:03:00 EDT, Dry Weight Start Date: 09/16/22 Status: Ordered zolpidem 5 mg oral tablet See Instructions, TAKE ONE TABLET BY MOUTH AT BEDTIME NEEDED FOR SLEEP, # 14 tablet, 5 Refills, Hard Stop 02/27/23 15:17:00 EDT, 08/30/22 15:17:00 EST, [facility], 156, cm, 08/29/22 14:28:00 EST, [...] Team Personnel Name: Fay Wong RN Position: [facility] RN Member Role: Primary Care Nurse Name: Alden Guido MD Position: [facility] Primary Care Physician Member Role: PCP Address: Address: [address] [place] [address]- Name: Vianney Alexander RN Position: [facility] RN Member Role: Primary Care Nurse Name: Caty Ferrari RN Position: [facility] RN Member Role: Primary Care Nurse Name: Juliann Deal RN Position: [facility] Hospital Welder Apprentice Gas Member Role: Primary Care Nurse Care Team Related Persons Name: BINDU ANGELES Address: home [address] [place] [address]
--- OUTSIDE RECORDS SUMMARY | 2024-07-21 14:45 | XMS_ITS | Continuity of Care Document ---
Author Organization [facility] Huy lt Address [address] [place] [address]- Care Team Providers Care Communications Planner Name Role Phone Hay AGUIRRE, Alden Agudelo Primary Care Physician Encounter [facility] Date(s): 05/29/23 - 06/28/23 [facility] Adult [address] [place] [address]- Allergies, Adverse Reactions, Alerts Substance Reaction Severity [...] Vaccine (oldterm) 10/12/97 Given 1Result Comment: [09/07/2017] [id number] 2Result Comment: [07/27/2017] AFLURIA [id number] 3Admin Note: DECLINED 4Admin Note: pt delcined Medications fluconazole 150 mg oral tablet 1 tablet = 150 mg, By Mouth, Once, epeat dose if still having symptoms in 72 hours, # 2 tablet, 0 Refills, Soft Stop, 05/29/23 16:47:00 EDT, Tablet, [facility], Partial fill upon patient request if the prescription is for a schedule II op... Start Date: 05/29/23 Status: Ordered FLUoxetine 20 mg oral capsule 1, capsule, By Mouth, Daily, # 30 capsule, Refills 5, Maintenance, 03/26/23 18:02:00 EDT, Route to Pharmacy Electronically, [facility], 156, cm, 08/29/22 14:28:00 EST, Height Start Date: 03/26/23 Status: Ordered Lipitor 40 mg oral tablet 1 tablet = 40 mg, By Mouth, Daily, # 90 tablet, 1 Refills, Maintenance, 03/19/23 15:38:00 EDT, Tablet, [facility], 156, cm, 08/29/22 14:28:00 EST, Height Start Date: 03/19/23 Status: Ordered LORazepam 1 mg oral tablet 1 tablet, By Mouth, Daily, PRN NEEDED FOR ANXIETY, # 10 tablet, 4 Refills, Maintenance, :42:00 EDT, [facility], 156, cm, 08/29/22 14:28:00 EST, [...] 14 tablet, 5 Refills, Maintenance,03/26/23 18:03:00 EDT, [facility], 156, cm, 08/29/22 14:28:00 EST, [...] Team Personnel Name: Fay Wong RN Position: [facility] RN Member Role: Primary Care Nurse Name: Hay AGUIRRE, Alden Agudelo Position: [facility] Physician - Primary Care Member Role: PCP Address: Address: [address] [place] [address]- Name: Vianney Alexander RN Position: [facility] RN Member Role: Primary Care Nurse Name: Caty Ferrari RN Position: [facility] RN Member Role: Primary Care Nurse Name: Juliann Deal RN Position: [facility] Hospital Rn Manager Member Role: Primary Care Nurse Care Team Related Persons Name: BINDU ANGELES Address: home [address] [place] [address]
--- OUTSIDE RECORDS SUMMARY | 2024-07-21 14:45 | XMS_ITS | Continuity of Care Document ---
Author Organization [facility] Logan Huy lt Address [address] [place] [address]- Care Team Providers Care Research Center Director Name Role Phone Hay AGUIRRE, Alden Agudelo Primary Care Physician [facility] Date[facility]s): 08/06/21 - 09/05/21 [facility] [place] Adult [address] [place] [address]- Allergies, Adverse Reactions, Alerts Substance Reaction Severity [...] Vaccine (oldterm) 10/12/97 Given 1Result Comment: [09/07/2017] [id number] 2Result Comment: [07/27/2017] AFLURIA [id number] 3Admin Note: DECLINED 4Admin Note: pt delcined [...] Acute 08/07/22 7:06:00 EDT, 02/08/22 7:06:00 EDT, [facility], 156, cm, 01/05/21 6:17:00 EDT, Height, 69.6, kg, 01/04/21 10:03:00 E... Start Date: 02/08/22 Stop Date: 08/07/22 Status: Ordered zolpidem 5 mg oral tablet 1 tablet, By Mouth, Daily at bedtime, PRN NEEDED FOR SLEEP TO LAST, for 30 days, # 14 tablet, 5 Refills, Acute 02/08/22 7:06:00 EDT, 08/12/21 7:06:00 EDT, [facility], 156, cm, 01/05/21 6:17:00 EDT, [...]
--- OUTSIDE RECORDS SUMMARY | 2024-07-21 14:45 | XMS_ITS | Continuity of Care Document ---
Author Organization [facility] Logan Huy lt Address [address] [place] [address]- Care Team Providers Care A P Mechanic Name Role Phone Hay AGUIRRE, Alden Agudelo Primary Care Physician [facility] Date(s): 04/25/24 - 05/25/24 [facility] Adult [address] [place] [address]- Allergies, Adverse Reactions, Alerts Substance Reaction Severity [...] Vaccine (oldterm) 10/12/97 Given 1Result Comment: [09/07/2017] [id number] 2Result Comment: [07/27/2017] BEARURIA [id number] 3Admin Note: DECLINED 4Admin Note: pt delcined Medications aspirin 325 mg oral delayed release tablet 325 mg, 1, tablet, By Mouth, Daily, # 30 tablet, Refills 0, Tot. Refills 0, Maintenance, 07/29/23 13:51:00 EDT, Route to Pharmacy Electronically, [facility], Partial fill upon patient request if the prescription is for a schedule II opio... Start Date: 07/29/23 Status: Ordered atorvastatin 40 mg oral tablet 1 tablet, By Mouth, Daily, # 90 tablet, 1 Refills, Maintenance, 04/29/24 10:48:00 EDT, [facility], 152.4, cm, 02/10/24 11:11:00 EDT, Height, 65.4, kg, 07/29/23 12:55:00 EDT, Dry Weight Start Date: 04/29/24 Status: Ordered FLUoxetine 20 mg oral capsule 1, capsule, By Mouth, Daily, # 90 capsule, Refills 1, Maintenance, 04/29/24 10:49:00 EDT, Route to Pharmacy Electronically, [facility], 152.4, cm, 02/10/24 11:11:00 EDT, Height, 65.4, kg, 07/29/23 12:55:00 EDT, Dry Weight Start Date: 04/29/24 Status: Ordered LORazepam 1 mg oral tablet 1 tablet, By Mouth, Daily, INSTR: NEEDED FOR ANXIETY., # 10 tablet, 4 Refills, Maintenance, 03/30/24 5:49:00 EDT, [facility], 152.4, cm, 02/10/24 11:11:00 EDT, Height, 65.4, kg, 07/29/23 12:55:00 EDT, Dry Weight Start Date: 03/30/24 Stop Date: 08/30/24 Status: Ordered zolpidem 5 mg oral tablet 1 tablet, By Mouth, Daily at bedtime, PRN NEEDED FOR SLEEP, # 14 tablet, 5 Refills, Maintenance,12/08/23 12:17:00 EST, [facility], 152.4, cm, 08/19/23 14:08:00 EST, [...] Team Personnel Name: Fay Wong RN Position: [facility] SN RN Member Role: Primary Care Nurse Name: Alden Guido MD Position: [facility] Physician - Primary Care Member Role: PCP Address: Address: [address] [place] [address]- Name: Vianney Alexander RN Position: S RN Member Role: Primary Care Nurse Name: Caty Ferrari RN Position: S RN Member Role: Primary Care Nurse Name: Juliann Deal RN Position: [facility] SN RN Member Role: Primary Care Nurse Care Team Related Persons Name: BINDU ANGELES Address: home [address] [place] [address]
--- OUTSIDE RECORDS SUMMARY | 2024-07-21 14:45 | XMS_ITS | Continuity of Care Document ---
Author Organization [facility] Logan Huy lt Address [address] [place] [address]- Care Team Providers Care Electroencephalogram Technologist Name Role Phone Hay AGUIRRE, Alden Agudelo Primary Care Physician [facility] Date[facility]s): 02/29/24 - 03/30/24 [facility] Adult [address] [place] [address]- Allergies, Adverse Reactions, Alerts Substance Reaction Severity [...] Vaccine (oldterm) 10/12/97 Given 1Result Comment: [09/07/2017] [id number] 2Result Comment: [07/27/2017] AFLURIA [id number] 3Admin Note: DECLINED 4Admin Note: pt delcined Medications aspirin 325 mg oral delayed release tablet 325 mg, 1, tablet, By Mouth, Daily, # 30 tablet, Refills 0, Tot. Refills 0, Maintenance, 07/29/23 13:51:00 EDT, Route to Pharmacy Electronically, [facility], Partial fill upon patient request if the prescription is for a schedule II opio... Start Date: 07/29/23 Status: Ordered atorvastatin 40 mg oral tablet 1 tablet, By Mouth, Daily, # 90 tablet, 1 Refills, Maintenance, 10/06/23 18:41:00 EST, [facility], 152.4, cm, 08/19/23 14:08:00 EST, Height, 65.4, kg, 07/29/23 12:55:00 EDT, Dry Weight Start Date: 10/06/23 Status: Ordered FLUoxetine 20 mg oral capsule 1, capsule, By Mouth, Daily, # 90 capsule, Refills 1, Tot. Refills 1, Maintenance, 10/06/23 18:42:00 EST, Route to Pharmacy Electronically, [facility], 152.4, cm, 08/19/23 14:08:00 EST, Height, 65.4, kg, 07/29/23 12:55:00 EDT, Dry Weight Start Date: 10/06/23 Status: Ordered LORazepam 1 mg oral tablet 1 tablet, By Mouth, Daily, INSTR: NEEDED FOR ANXIETY., # 10 tablet, 4 Refills, Maintenance, 03/30/24 5:49:00 EDT, [facility], 152.4, cm, 02/10/24 11:11:00 EDT, Height, 65.4, kg, 07/29/23 12:55:00 EDT, Dry Weight Start Date: 03/30/24 Stop Date: 08/30/24 Status: Ordered zolpidem 5 mg oral tablet 1 tablet, By Mouth, Daily at bedtime, PRN NEEDED FOR SLEEP, # 14 tablet, 5 Refills, Maintenance,12/08/23 12:17:00 EST, [facility], 152.4, cm, 08/19/23 14:08:00 EST, [...] Team Personnel Name: Fay Wong RN Position: [facility] RN Member Role: Primary Care Nurse Name: Alden Guido MD Position: [facility] Physician - Primary Care Member Role: PCP Address: Address: [address] [place] [address]- Name: Vianney Alexander RN Position: [facility] RN Member Role: Primary Care Nurse Name: Caty Ferrari RN Position: [facility] RN Member Role: Primary Care Nurse Name: Juliann Deal RN Position: [facility] Hospital Automobile Salesman Member Role: Primary Care Nurse Care Team Related Persons Name: BINDU ANGELES Address: home [address] [place] [id number]
--- OUTSIDE RECORDS SUMMARY | 2024-07-21 14:45 | XMS_ITS | Continuity of Care Document ---
Author Organization [facility] Address [address] [place] [address]- Care Team Providers Care Botany Laboratory Assistant Name Role Phone Hay AGUIRRE, Alden Agudelo Primary Care Physician Encounter 01/06/21 - 01/18/21 [facility] [address] [place] [address]- Discharge Disposition: [facility] Allergies, Adverse Reactions, Alerts Substance Reaction Severity [...] Vaccine (oldterm) 10/12/97 Given 1Result Comment: [09/07/2017] [id number] 2Result Comment: [07/27/2017] AFLURIA [id number] 3Admin Note: DECLINED 4Admin Note: pt delcined Medications acetaminophen 325 mg oral tablet 650 mg, By Mouth, Every 6 hours, Refills 0, Maintenance, 09/23/17 8:28:50 Start Date: 09/23/17 Status: Ordered Ambien 5 mg oral tablet 1 tablet = 5 mg, By Mouth, Daily at bedtime, PRN Sleep, 6 month supply, # 14 tablet, 5 Refills, Maintenance, 01/02/21 11:11:00 EDT, Tablet, [facility], 156, cm, 12/26/20 8:15:00 EDT,Height, [...] tablet, 1 Refills, Maintenance, 10/17/20 12:59:00 EST, [facility], Duplicate script, 155.9, cm, 06/14/20 [...] 06/14/20 8:39:00 EDT, Route to Pharmacy Electronically, [facility], 155.9, cm, 06/14/20 8:07:00 EDT, Height, 66.7, kg, 02/01/19 11:39:00 EDT, Dry We... Start Date: 06/14/20 Status: Ordered Lipitor 40 mg oral tablet 1 tablet = 40 mg, By Mouth, Daily, # 90 tablet, 1 Refills, Maintenance, 12/26/20 11:08:00 EDT, Tablet, [facility], 156, cm, 12/26/20 8:15:00 EDT, Height, 66.7, kg, 02/01/19 11:39:00 EDT, Dry Weight Start Date: 12/26/20 Status: Ordered LORazepam 1 mg oral tablet 1 tablet = 1 mg, By Mouth, Daily, PRN as needed for anxiety, for 30 days, # 10 tablet, 2 Refills, Acute 03/10/21 13:17:00 EDT, 12/10/20 13:17:00 EST, [facility], 155.9, cm, 06/14/20 8:07:00 EDT, [...]
--- OUTSIDE RECORDS SUMMARY | 2024-07-21 14:45 | XMS_ITS | Continuity of Care Document ---
Author Organization [facility] Address [address] [place] [address]- Care Team Providers Care Furnace Cleaner Name Role Phone Alden Guido MD Primary Care Physician Encounter 07/10/22 - 11/15/22 [facility] [address], [address] [place] [address]- Attending Physician: Alden Guido MD Admitting Physician: [...] Vaccine (oldterm) 10/12/97 Given 1Result Comment: [09/07/2017] [id number] 2Result Comment: [07/27/2017] AFLURIA [id number] 3Admin Note: DECLINED 4Admin Note: pt delcined Medications FLUoxetine 20 mg oral capsule 20 mg, 1, capsule, By Mouth, Daily, Increase in dose, # 30 capsule, Refills 5, Tot. Refills 5, Maintenance, 08/29/22 14:56:00 EST, Route to Pharmacy Electronically, [facility], Partial fill upon patient request if the prescription is for... Start Date: 08/29/22 Status: Ordered Lipitor 40 mg oral tablet 1 tablet = 40 mg, By Mouth, Daily, # 90 tablet, 1 Refills, Maintenance, 09/05/22 10:12:00 EST, Tablet, [facility], 156, cm, 08/29/22 14:28:00 EST, [...] 15:17:00 EDT, 08/30/22 15:17:00 EST, [facility], 156, cm, 08/29/22 14:28:00 EST, [...] Exam Date Time Procedure Performing Provider Status 10/16/22 8:26 AM MM Digital Mammo Screening Carlos , Mariama banegas; Auth (Verified) Notes: (MM Digital Mammo Screening) Reason For Exam: Z12.31 SCREENING RESULT: MM Digital Mammo Screening PROCEDURE: MM Digital Mammo Screening INDICATION: Screening for breast cancer. No known palpable abnormalities. RIGHT breast stereotacticbiopsy in 2009, benign. COMPARISON: Prior mammograms dating back to 09/09/2018. TECHNIQUE: Full-field digital CC and MLO 3-D tomosynthesis images of both breasts were acquired. Computer-aided detection (CAD) was utilized in the interpretation of this study. DENSITY: The breast tissue contains scattered areas of fibroglandular density. FINDINGS: No suspicious masses, suspicious microcalcifications, or areas of architectural distortion are seen in either breast to suggest malignancy. Stable 2 biopsy marking clips in the subareolar RIGHT breast. IMPRESSION: No mammographic evidence of malignancy. RECOMMENDATION: Annual mammographic screening BI-RADS: 2 (Benign) Lay letter mailed to patient WSN: [id number] Ordering Physician: Alden Guido Dictated By: Christiana York MD Dictated Date/Time: 10/16/22 9:05 am Reviewed By: Christiana York MD Signed By: Christiana York MD Signed Date/Time: 10/16/22 9:05 am Transcribed By: OLEG Lane Marker Installer Date/Time: 10/16/22 9:02 am Birads: Social History Social History Type Response Smoking Status Current every day sm azer entered on: 03/17/18 Sex MG Breast Screening * [facility] , CIS S: TRANSCRIBE Christiana York MD: VERIFY Event Display: Result: Authored Date: [id number] PROCEDURE: MM Digital Mammo Screening INDICATION: Screening for breast cancer. No known palpable abnormalities. RIGHT breast stereotacticbiopsy in 2009, benign. COMPARISON: Prior mammograms dating back to 09/09/2018. TECHNIQUE: Full-field digital CC and MLO 3-D tomosynthesis images of both breasts were acquired. Computer-aided detection (CAD) was utilized in the interpretation of this study. DENSITY: The breast tissue contains scattered areas of fibroglandular density. FINDINGS: No suspicious masses, suspicious microcalcifications, or areas of architectural distortion are seen in either breast to suggest malignancy. Stable 2 biopsy marking clips in the subareolar RIGHT breast. IMPRESSION: No mammographic evidence of malignancy. RECOMMENDATION: Annual mammographic screening BI-RADS: 2 (Benign) Lay letter mailed to patient WSN: [id number] Ordering Physician: Alden Guido Dictated By: Christiana York MD Dictated Date/Time: 10/16/22 9:05 am Reviewed By: Christiana York MD Signed By: Christiana York MD Signed Date/Time: 10/16/22 9:05 am Transcribed By: OLEG Lane Marker Installer Date/Time: 10/16/22 9:02 am Birads: Patient Care team information Care Team Personnel Name: Fay Wong RN Position: [facility] RN Member Role: Primary Care Nurse Name: Alden Guido MD Position: [facility] Primary Care Physician Member Role: PCP Address: Address: [address] [place] [id number]- Name: Vianney Alexander RN Position: [facility] RN Member Role: Primary Care Nurse Name: Caty Ferrari RN Position: [facility] RN Member Role: Primary Care Nurse Name: Juliann Deal RN Position: [facility] Hospital Junior Financial Analyst Member Role: Primary Care Nurse Care Team Related Persons Name: BINDU ANGELES Address: [address] [address]
--- OUTSIDE RECORDS SUMMARY | 2024-07-21 14:45 | XMS_ITS | Continuity of Care Document ---
Author Organization [facility] Address [address] [place] [address]- Care Team Providers Care Lead Mechanic Name Role Phone Hay AGUIRRE, Alden Agudelo Primary Care Physician [place] [facility] [place] - 11/21/[address] [address] Attending Physician: Bulmaro Marte MD Admitting Physician: [...] Vaccine (oldterm) 10/12/97 Given 1Result Comment: [09/07/2017] [id number] 2Result Comment: [07/27/2017] AFLURIA [id number] 3Admin Note: DECLINED 4Admin Note: pt delcined Medications acetaminophen 325 mg oral tablet 650 mg, By Mouth, Every 6 hours, Refills 0, Maintenance, 09/23/17 8:28:50 Start Date: 09/23/17 Status: Ordered Ambien 5 mg oral tablet 1 tablet = 5 mg, By Mouth, Daily at bedtime, PRN Sleep, 6 month supply, # 14 tablet, 5 Refills, Maintenance, 05/22/20 16:28:00 EDT, Tablet, [facility], 155.9, cm, 04/10/20 8:05:00 EDT, Height, 66.7, kg, 02/01/19 11:39:00 EDT, Dry Weight Start Date: 05/22/20 Status: Ordered buPROPion 300 mg/24 hours (XL) oral tablet, extended release 1 tablet = 300 mg, By Mouth, Daily, # 90 tablet, 1 Refills, Maintenance, 10/17/20 12:59:00 EST, [facility], Duplicate script, 155.9, cm, 06/14/20 8:07:00 EDT, Height, 66.7, kg, 02/01/19 11:39:00 EDT, Dry Weight Start Date: 10/17/20 Status: Ordered FLUoxetine 10 mg oral capsule 10 mg, 1, capsule, By Mouth, Daily, # 90 capsule, Refills 3, Tot. Refills 3, Maintenance, 06/14/20 8:39:00 EDT, Route to Pharmacy Electronically, [facility], 155.9, cm, 06/14/20 8:07:00 EDT, Height, 66.7, kg, 02/01/19 11:39:00 EDT, Dry We... Start Date: 06/14/20 Status: Ordered Lipitor 40 mg oral tablet 1 tablet = 40 mg, By Mouth, Daily, # 90 tablet, 3 Refills, Maintenance, 12/06/19 10:03:00 EST, Tablet, [facility], 155.9, cm, 12/06/19 9:43:00 EST, Height, 66.7, kg, 02/01/19 11:39:00 EDT, Dry Weight Start Date: 12/06/19 Stop Date: 11/30/20 Status: Ordered LORazepam 1 mg oral tablet 1 tablet = 1 mg, By Mouth, Daily, PRN as needed for anxiety, for 30 days, # 10 tablet, 2 Refills, Acute 02/06/21 10:45:00 EDT, 11/08/20 10:45:00 EST, [facility], 155.9, cm, 06/14/20 8:07:00 EDT, Height, 66.7, kg, 02/01/19 11:39:00 EDT, . Start Date: 11/08/20 Stop Date: 02/06/21 Status: Ordered Problem List Condition Effective Dates Status Health Status Inform ant Allergic rhinitis(Confirmed) Active Anxiety(Confirmed) Active Apocrine metaplasia of breast(Confirmed) Active Cigarette smoker(Confirmed) 04/19/12 Active Family history of amyloidosi s - mother(Confirmed) Active Prediabetes(Confirmed) Active Hypercholesterolemia(Confirmed) Active Insomnia, idiopathic(Confirmed) Active Depression, major(Confirmed) Active Osteoarthritis of right knee(Confirmed) Active Osteoporosis(Confirmed) Active Social History Social History Type Response Smoking Status Current every day hernseto alvarez entered on: 03/17/18 Sex
--- OUTSIDE RECORDS SUMMARY | 2024-07-21 14:45 | XMS_ITS | Continuity of Care Document ---
Author Organization [facility] [place] [facility] Address [address] [place] [address]- Care Team Providers Care Button Decorating Machine Operator Name Role Phone Hay AGUIRRE, Alden Agudelo Primary Care Physician [place] [facility] [place]10/20 - 01/09/21 [facility] [place] [address] [place] [address]- Attending Physician: Admtr, Ar8 Allergies, Adverse Reactions, [...] Vaccine (oldterm) 10/12/97 Given 1Result Comment: [09/07/2017] [id number] 2Result Comment: [07/27/2017] AFLURIA [id number] 3Admin Note: DECLINED 4Admin Note: pt delcined Medications acetaminophen 325 mg oral tablet 650 mg, By Mouth, Every 6 hours, Refills 0, Maintenance, 09/23/17 8:28:50 Start Date: 09/23/17 Status: Ordered Ambien 5 mg oral tablet 1 tablet = 5 mg, By Mouth, Daily at bedtime, PRN Sleep, 6 month supply, # 14 tablet, 5 Refills, Maintenance, 01/02/21 11:11:00 EDT, Tablet, [facility], 156, cm, 12/26/20 8:15:00 EDT,Height, [...] tablet, 1 Refills, Maintenance, 10/17/20 12:59:00 EST, [facility], Duplicate script, 155.9, cm, 06/14/20 [...] 06/14/20 8:39:00 EDT, Route to Pharmacy Electronically, [facility], 155.9, cm, 06/14/20 8:07:00 EDT, Height, 66.7, kg, 02/01/19 11:39:00 EDT, Dry We... Start Date: 06/14/20 Status: Ordered HYDROmorphone 4 mg oral tablet See Instructions, PRN Pain , Moderate, Take 0.5-1 tablets By Mouth Every 3 hours as needed for pain, # 56 tablet, 0 Refills, Acute 01/12/21 10:29:00 EDT, 01/05/21 10:28:00 EDT, Tablet, [facility], Partial fill upon patient [...] 13:17:00 EDT, 12/10/20 13:17:00 EST, [facility], 155.9, [...] right knee(Confirmed) Active Osteopenia(Confirmed) Active Osteoporosis(Confirmed) Active Procedures Procedure Date Related Diagnosis Body Site Status Bone density (bone mineral c ontent) study, one or more sites; single photon absorptiometry 1 04/20/08 Completed colonoscopy 2010 due 2015 Completed US guided vacuum assist lele st biopsy with clip placement on the right breast Completed 1Radiology and Imaging Social History Social History Type Response Smoking Status Current every day hernesto alvarez entered on: 03/17/18 Sex
--- OUTSIDE RECORDS SUMMARY | 2024-07-21 14:45 | XMS_ITS | Continuity of Care Document ---
Author Organization [facility] Address [address] [place] [address]- Care Team Providers Care Porter Sample Case Name Role Phone Hay AGUIRRE, Alden Agudelo Primary Care Physician Encounter [facility] Date(s): 06/26/22 - 07/26/22 [facility] Adult [address] [place] [address]- Allergies, Adverse Reactions, Alerts Substance Reaction Severity [...] Vaccine (oldterm) 10/12/97 Given 1Result Comment: [09/07/2017] [id number] 2Result Comment: [07/27/2017] AFLURIA [id number] 3Admin Note: DECLINED 4Admin Note: pt delcined Medications acetaminophen 325 mg oral tablet 650 mg, By Mouth, Every 6 hours, Refills 0, Maintenance, 09/23/17 8:28:50 Start Date: 09/23/17 Status: Ordered buPROPion 300 mg/24 hours (XL) oral tablet, extended release 1 tablet, By Mouth, Daily, # 90 tablet, 1 Refills, Maintenance, 06/27/22 15:47:00 EDT, [facility], 156, cm, 06/10/22 8:27:00 EDT, Height, 69.6, kg, 01/04/21 10:03:00 EDT, Dry Weight Start Date: 06/27/22 Status: Ordered FLUoxetine 10 mg oral capsule 1, capsule, By Mouth, Daily, # 90 capsule, Refills 3, Maintenance, 06/27/22 17:03:00 EDT, Route to Pharmacy Electronically, [facility], 156, cm, 06/10/22 8:27:00 EDT, Height, 69.6, kg, 01/04/21 10:03:00 EDT, Dry Weight Start Date: 06/27/22 Status: Ordered Lipitor 40 mg oral tablet 1 tablet = 40 mg, By Mouth, Daily, # 90 tablet, 3 Refills, Maintenance, 08/14/21 10:28:00 EDT, Tablet, [facility], 156, cm, 01/05/21 6:17:00 EDT, Height, 69.6, kg, 01/04/21 10:03:00 EDT, Dry Weight Start Date: 08/14/21 Status: Ordered LORazepam 1 mg oral tablet 1 tablet, By Mouth, Daily, PRN NEEDED FOR ANXIETY, # 10 tablet, 4 Refills, Maintenance, 04/21/2217:33:00 EDT, [facility], 156, cm, 01/05/21 6:17:00 EDT, [...] Refills, Maintenance, 06/10/22 17:39:00 EDT, [facility],... Start Date: 06/10/22 Status: [...] 9:55:00 EST, 03/04/22 9:55:00 EDT, [facility], 156, cm, 01/05/21 6:17:00 [...] Personnel Name: Alden Guido MD Address: Address: [address] [place] [id number]
--- OUTSIDE RECORDS SUMMARY | 2024-07-21 14:45 | XMS_ITS | Continuity of Care Document ---
Author Organization [facility] Address [address] [place] [address]- Care Team Providers Care Packing Clerk Name Role Phone Hay AGUIRRE, Alden Agudelo Primary Care Physician Encounter [facility] Date(s): 02/18/24 - 03/19/24 [facility] Adult [address] [place] [address]- Allergies, Adverse Reactions, Alerts Substance Reaction Severity [...] Vaccine (oldterm) 10/12/97 Given 1Result Comment: [09/07/2017] [id number] 2Result Comment: [07/27/2017] AFLURIA [id number] 3Admin Note: DECLINED 4Admin Note: pt delcined Medications aspirin 325 mg oral delayed release tablet 325 mg, 1, tablet, By Mouth, Daily, # 30 tablet, Refills 0, Tot. Refills 0, Maintenance, 07/29/23 13:51:00 EDT, Route to Pharmacy Electronically, [facility], Partial fill upon patient request if the prescription is for a schedule II opio... Start Date: 07/29/23 Status: Ordered atorvastatin 40 mg oral tablet 1 tablet, By Mouth, Daily, # 90 tablet, 1 Refills, Maintenance, 10/06/23 18:41:00 EST, [facility], 152.4, cm, 08/19/23 14:08:00 EST, Height, 65.4, kg, 07/29/23 12:55:00 EDT, Dry Weight Start Date: 10/06/23 Status: Ordered FLUoxetine 20 mg oral capsule 1, capsule, By Mouth, Daily, # 90 capsule, Refills 1, Tot. Refills 1, Maintenance, 10/06/23 18:42:00 EST, Route to Pharmacy Electronically, [facility], 152.4, cm, 08/19/23 14:08:00 EST, Height, 65.4, kg, 07/29/23 12:55:00 EDT, Dry Weight Start Date: 10/06/23 Status: Ordered LORazepam 1 mg oral tablet 1 tablet, By Mouth, Daily, NEEDED FOR ANXIETY., # 10 tablet, 4 Refills, Maintenance, 09/01/23 16:05:00 EST, [facility], 152.4, cm, 08/19/23 14:08:00 EST, Height, 65.4, kg, 07/29/23 12:55:00 EDT, Dry Weight Start Date: 09/01/23 Stop Date: 01/31/24 Status: Ordered zolpidem 5 mg oral tablet 1 tablet, By Mouth, Daily at bedtime, PRN NEEDED FOR SLEEP, # 14 tablet, 5 Refills, Maintenance,12/08/23 12:17:00 EST, [facility], 152.4, cm, 08/19/23 14:08:00 EST, [...] Team Personnel Name: Marvin WORRELL, Fay Position: [facility] RN Member Role: Primary Care Nurse Name: Hay AGUIRRE, Alden Agudelo Position: [facility] Physician - Primary Care Member Role: PCP Address: Address: [address] [place] [id number]- Name: Vianney Alexander RN Position: [facility] RN Member Role: Primary Care Nurse Name: Caty Ferrari RN Position: [facility] RN Member Role: Primary Care Nurse Name: Juliann Deal RN Position: [facility] Hospital Chef'S Assistant Member Role: Primary Care Nurse Care Team Related Persons Name: BINDU ANGELES Address: home [address] [place] [id number]
--- OUTSIDE RECORDS SUMMARY | 2024-07-21 14:45 | XMS_ITS | Continuity of Care Document ---
Author Organization [facility] Address [address] [place] [address]- Care Team Providers Care Supervising Librarian Name Role Phone Hay AGUIRRE, Alden Agudelo Primary Care Physician [phone] Encounter [facility] [place] Date(s): 06/16/24 - 07/16/[address] [address] Allergies, Adverse Reactions, Alerts Substance Reaction Severity [...] Vaccine (oldterm) 10/12/97 Given 1Result Comment: [09/07/2017] [id number] 2Result Comment: [07/27/2017] AFLURIA [id number] 3Admin Note: DECLINED 4Admin Note: pt delcined Medications aspirin 325 mg oral delayed release tablet 325 mg, 1, tablet, By Mouth, Daily, # 30 tablet, Refills 0, Tot. Refills 0, Maintenance, 07/29/23 13:51:00 EDT, Route to Pharmacy Electronically, [facility], Partial fill upon patient request if the prescription is for a schedule II opio... Start Date: 07/29/23 Status: Ordered atorvastatin 40 mg oral tablet 1 tablet, By Mouth, Daily, # 90 tablet, 1 Refills, Maintenance, 04/29/24 10:48:00 EDT, [facility], 152.4, cm, 02/10/24 11:11:00 EDT, Height, 65.4, kg, 07/29/23 12:55:00 EDT, Dry Weight Start Date: 04/29/24 Status: Ordered FLUoxetine 20 mg oral capsule 1, capsule, By Mouth, Daily, # 90 capsule, Refills 1, Maintenance, 04/29/24 10:49:00 EDT, Route to Pharmacy Electronically, [facility], 152.4, cm, 02/10/24 11:11:00 EDT, Height, 65.4, kg, 07/29/23 12:55:00 EDT, Dry Weight Start Date: 04/29/24 Status: Ordered LORazepam 1 mg oral tablet 1 tablet, By Mouth, Daily, INSTR: NEEDED FOR ANXIETY., # 10 tablet, 4 Refills, Hard Stop 08/30/24 5:49:00 EST, 03/30/24 5:49:00 EDT, [facility], 152.4, cm, 02/10/24 11:11:00 EDT, Height, 65.4, kg, 07/29/23 12:55:00 EDT, Dry Weight Start Date: 03/30/24 Stop Date: 08/30/24 Status: Ordered LORazepam 1 mg oral tablet 1 tablet, By Mouth, Daily, PRN as needed for anxiety, # 30 tablet, 2 Refills, Maintenance, 245:49:00 EST, [facility], 152.4, cm, 02/10/24 11:11:00 EDT, [...] Team Personnel Name: Fay Wong RN Position: [facility] SN RN Member Role: Primary Care Nurse Name: Alden Guido MD Position: [facility] Physician - Primary Care Member Role: PCP Address: Address: [address] [place] [id number]- Name: Vianney Alexander RN Position: S RN Member Role: Primary Care Nurse Name: Caty Ferrari RN Position: S RN Member Role: Primary Care Nurse Name: Juliann Deal RN Position: [facility] SN RN Member Role: Primary Care Nurse Care Team Related Persons Name: BINDU ANGELES Address: home [address] [place] [id number]
--- OUTSIDE RECORDS SUMMARY | 2024-07-21 14:45 | XMS_ITS | Continuity of Care Document ---
Author Organization [facility] [place] [facility] Address [address] [place] [address]- Care Team Providers Care Radiographer Name Role Phone Hay AGUIRRE, Alden Agudelo Primary Care Physician [place] [facility] [place] - 06/21/20 [facility] Adult [address] [place] [address]- [facility] Encounter Diagnosis Hordeolum of left eye(Discharge Diagnosis) - 06/14/20 Attending Physician: Patrice MAY, Sammie Meade Allergies, Adverse Reactions, Alerts Substance Reaction Severity [...] Vaccine (oldterm) 10/12/97 Given 1Result Comment: [09/07/2017] [id number] 2Result Comment: [07/27/2017] AFLURIA [id number] 3Admin Note: DECLINED 4Admin Note: pt delcined Medications acetaminophen 325 mg oral tablet 650 mg, By Mouth, Every 6 hours, Refills 0, Maintenance, 09/23/17 8:28:50 Start Date: 09/23/17 Status: Ordered Ambien 5 mg oral tablet 1 tablet = 5 mg, By Mouth, Daily at bedtime, PRN Sleep, 6 month supply, # 14 tablet, 5 Refills, Maintenance, 05/22/20 16:28:00 EDT, Tablet, [facility], 155.9, cm, 04/10/20 8:05:00 EDT, [...] Dry Weight Start Date: 03/12/20 Status: Ordered erythromycin 0.5% ophthalmic ointment 0.5 inches, Eye, Left, 4 times a day, for 10 days, # 3.5 Gm, 0 Refills, Acute 06/24/20 8:39:00 EDT,06/14/20 8:39:00 EDT, Ophth Ointment, [facility], 0.5 inches Eye, Left 4 times a day,x10 days, 155.9, cm, 06/14/20 8:07:00 EDT, Height, 66... Start Date: 06/14/20 Stop Date: 06/24/20 Status: Ordered FLUoxetine 10 mg oral capsule 10 mg, 1, capsule, By Mouth, Daily, # 90 capsule, Refills 3, Tot. Refills 3, Maintenance, 06/14/20 8:39:00 EDT, Route to Pharmacy Electronically, [facility], 155.9, cm, [...] 66.7, kg, 02/01/19 11:39:00 EDT, Start Date: 04/09/20 Stop Date: 07/08/20 Status: [...] Dates Health Status Cl inical Service Informant Hordeolum of left eye Discharge Diagnosis 06/14/20 Vital Signs Most recent to oldest [Reference Range]: 1 Height 155.9 cm (06/14/20 8:07 AM) Weight 70.4 kg (06/14/20 8:07 AM) Oxygen Saturation [94-100 %] 97 % (06/14/20 8:07 AM) Pulse Rate [55-90 bpm] 67 bpm (06/14/20 8:07 AM) Body Mass Index [18.5-24.99] 28.97 *H* (06/14/20 8:07 AM) Blood Pressure [90-138/55-84 mm Hg] 139/ 57mm Hg *H* (06/14/20 8:07 AM) Temperature [96.8-100.4 DegF] 98.1 DegF (06/14/20 8:07 AM) Blood pressure sites Arm, left (06/14/20 8:07 AM) Temperature Route Oral (06/14/20 8:07 AM) Social History Social History Type Response Smoking Status Current every day hernesto alvarez entered on: 03/17/18 Sex
--- OUTSIDE RECORDS SUMMARY | 2024-07-21 14:45 | XMS_ITS | Continuity of Care Document ---
Author Organization [facility] Address [address] [place] [address]- Care Team Providers Care Die Caster Name Role Phone Hay AGUIRRE, Alden Agudelo Primary Care Physician [place] [facility] [place] 05/25/23 - 06/24/23 [facility] Adult [address] [place] [address]- Allergies, Adverse Reactions, Alerts Substance Reaction Severity [...] Vaccine (oldterm) 10/12/97 Given 1Result Comment: [09/07/2017] [id number] 2Result Comment: [07/27/2017] AFLURIA [id number] 3Admin Note: DECLINED 4Admin Note: pt delcined Medications fluconazole 150 mg oral tablet 1 tablet = 150 mg, By Mouth, Once, epeat dose if still having symptoms in 72 hours, # 2 tablet, 0 Refills, Soft Stop, 05/29/23 16:47:00 EDT, Tablet, [facility], Partial fill upon patient request if the prescription is for a schedule II op... Start Date: 05/29/23 Status: Ordered FLUoxetine 20 mg oral capsule 1, capsule, By Mouth, Daily, # 30 capsule, Refills 5, Maintenance, 03/26/23 18:02:00 EDT, Route to Pharmacy Electronically, [facility], 156, cm, 08/29/22 14:28:00 EST, Height Start Date: 03/26/23 Status: Ordered Lipitor 40 mg oral tablet 1 tablet = 40 mg, By Mouth, Daily, # 90 tablet, 1 Refills, Maintenance, 03/19/23 15:38:00 EDT, Tablet, [facility], 156, cm, 08/29/22 14:28:00 EST, Height Start Date: 03/19/23 Status: Ordered LORazepam 1 mg oral tablet 1 tablet, By Mouth, Daily, PRN NEEDED FOR ANXIETY, # 10 tablet, 4 Refills, Maintenance, :42:00 EDT, [facility], 156, cm, 08/29/22 14:28:00 EST, [...] 14 tablet, 5 Refills, Maintenance,03/26/23 18:03:00 EDT, [facility], 156, cm, 08/29/22 14:28:00 EST, [...] Team Personnel Name: Fay Wong RN Position: [facility] RN Member Role: Primary Care Nurse Name: Hay AGUIRRE, Alden Agudelo Position: [facility] Physician - Primary Care Member Role: PCP Address: Address: [address] [place] [id number]- Name: Vianney Alexander RN Position: [facility] RN Member Role: Primary Care Nurse Name: Caty Ferrari RN Position: [facility] RN Member Role: Primary Care Nurse Name: Juliann Deal RN Position: [facility] Hospital City Distribution Clerk Member Role: Primary Care Nurse Care Team Related Persons Name: BINDU ANGELES Address: home [address] [place] [id number]
--- OUTSIDE RECORDS SUMMARY | 2024-07-21 14:45 | XMS_ITS | Continuity of Care Document ---
Author Organization [facility] Huy [address] Address [address] [place] [address]- Care Team Providers Care Mixing Engineer Name Role Phone Alden Guido MD Primary Care Physician [phone] [place] [facility] [place] Date(s): 08/29/22 - 09/05/22 [facility] Adult [address] [place] [address]- Attending Physician: Alden Guido MD Allergies, Adverse [...] Vaccine (oldterm) 10/12/97 Given 1Result Comment: [09/07/2017] [id number] 2Result Comment: [07/27/2017] AFLURIA [id number] 3Admin Note: DECLINED 4Admin Note: pt delcined Medications FLUoxetine 20 mg oral capsule 20 mg, 1, capsule, By Mouth, Daily, Increase in dose, # 30 capsule, Refills 5, Tot. Refills 5, Maintenance, 08/29/22 14:56:00 EST, Route to Pharmacy Electronically, [facility], Partial fill upon patient request if the prescription is for... Start Date: 08/29/22 Status: Ordered Lipitor 40 mg oral tablet 1 tablet = 40 mg, By Mouth, Daily, # 90 tablet, 1 Refills, Maintenance, 09/05/22 10:12:00 EST, Tablet, [facility], 156, cm, 08/29/22 14:28:00 EST, Height, 69.6, kg, 01/04/21 10:03:00EDT, Dry Weight Start Date: 09/05/22 Status: Ordered LORazepam 1 mg oral tablet 1 tablet, By Mouth, Daily, PRN NEEDED FOR ANXIETY, # 10 tablet, 4 Refills, Maintenance, 04/21/2217:33:00 EDT, [facility], 156, cm, 01/05/21 6:17:00 EDT, Height, 69.6, kg, 01/04/21 10:03:00 EDT, Dry Weight Start Date: 04/21/22 Status: Ordered zolpidem 5 mg oral tablet See Instructions, TAKE ONE TABLET BY MOUTH AT BEDTIME NEEDED FOR SLEEP, # 14 tablet, 5 Refills, Maintenance, 08/30/22 15:17:00 EST, [facility], 156, cm, 08/29/22 14:28:00 EST, Height, 69.6, kg, 01/04/21 10:03:00 EDT, Dry Weight Start Date: 08/30/22 Stop Date: 02/27/23 Status: [...] to oldest [Reference Range]: 1 2 Height 156 cm (08/29/22 2:28 PM) 156 cm (08/29/22 2:23 PM) Weight 69.6 kg (08/29/22 2:23 PM) Oxygen Saturation [94-100 %] 98 % (08/29/22 2:23 PM) Pulse Rate [55-90 bpm] 74 bpm (08/29/22 2:23 PM) Body Mass Index [18.5-24.99 kg/m2] 28.6 kg/m2 *H* (08/29/22 2: PM) Blood Pressure [90-138/55-84 mm Hg] 136/ 84mm Hg (08/29/22 2:28 PM) 138/84mm Hg (08/29/22 2:23 PM) Mode of Delivery (Oxygen) Room air (08/29/22 2: PM) Blood pressure sites Arm, left (08/29/22 2:28 PM) Arm, left (08/29/22 2:23 PM) Weight Obtained Via Standing scale (08/29/22 2:23 PM) Social History Social History Type Response Smoking Status Current every day hernesto alvarez entered on: 03/17/18 Sex Patient Care team information Care Team Personnel Name: Fay Wong RN Position: [facility] RN Member Role: Primary Care Nurse Name: Alden Guido MD Position: [facility] Primary Care Physician Member Role: PCP Address: Address: [address] [place] [address]- Name: Vianney Alexander RN Position: [facility] RN Member Role: Primary Care Nurse Name: Caty Ferrari RN Position: [facility] RN Member Role: Primary Care Nurse Name: Juliann Deal RN Position: [facility] Hospital Cryptologic Technician Member Role: Primary Care Nurse Care Team Related Persons Name: BINDU ANGELES Address: home [address] [place] [id number]
--- OUTSIDE RECORDS SUMMARY | 2024-07-21 14:45 | XMS_ITS | Continuity of Care Document ---
Author Organization [facility] Address [address] [place] [address]- Care Team Providers Care Leather Currier Name Role Phone Hay AGUIRRE, Alden Agudelo Primary Care Physician [phone] [place] [facility] [place]14[place]20 - 07/14/20 [facility] Adult [address] [place] [address]- [facility] Attending Physician: Admtr, Ar8 Allergies, Adverse [...] Vaccine (oldterm) 10/12/97 Given 1Result Comment: [09/07/2017] [id number] 2Result Comment: [07/27/2017] AFLURIA [id number] 3Admin Note: DECLINED 4Admin Note: pt delcined Medications acetaminophen 325 mg oral tablet 650 mg, By Mouth, Every 6 hours, Refills 0, Maintenance, 09/23/17 8:28:50 Start Date: 09/23/17 Status: Ordered Ambien 5 mg oral tablet 1 tablet = 5 mg, By Mouth, Daily at bedtime, PRN Sleep, 6 month supply, # 14 tablet, 5 Refills, Maintenance, 05/22/20 16:28:00 EDT, Tablet, [facility], 155.9, cm, 04/10/20 8:05:00 EDT, Height, 66.7, kg, 02/01/19 11:39:00 EDT, Dry Weight Start Date: 05/22/20 Status: Ordered buPROPion 300 mg/24 hours (XL) oral tablet, extended release 1 tablet = 300 mg, By Mouth, Daily, # 90 tablet, 1 Refills, Maintenance, 03/12/20 11:46:00 EDT, [facility], Duplicate script, 155.9, cm, 01/10/20 9:47:00 EDT, Height, 66.7, kg, 02/01/19 11:39:00 EDT, Dry Weight Start Date: 03/12/20 Status: Ordered FLUoxetine 10 mg oral capsule 10 mg, 1, capsule, By Mouth, Daily, # 90 capsule, Refills 3, Tot. Refills 3, Maintenance, 06/14/20 8:39:00 EDT, Route to Pharmacy Electronically, [facility], 155.9, cm, 06/14/20 8:07:00 EDT, Height, 66.7, kg, 02/01/19 11:39:00 EDT, Dry We... Start Date: 06/14/20 Status: Ordered Lipitor 40 mg oral tablet 1 tablet = 40 mg, By Mouth, Daily, # 90 tablet, 3 Refills, Maintenance, 12/06/19 10:03:00 EST, Tablet, [facility], 155.9, cm, 12/06/19 9:43:00 EST, [...]
--- OUTSIDE RECORDS SUMMARY | 2024-07-21 14:45 | XMS_ITS | Continuity of Care Document ---
Author Organization [facility] H[facility] [place] Address [address] [place] [address]- Care Team Providers Care Project Production Engineer Name Role Phone Hay AGUIRRE, Alden Agudelo Primary Care Physician [phone] Encounter [place] Date(s): 07/17/20 - 08/16/20 [facility] Adult [address] [place] [address]- Allergies, Adverse Reactions, Alerts Substance Reaction Severity [...] Vaccine (oldterm) 10/12/97 Given 1Result Comment: [09/07/2017] [id number] 2Result Comment: [07/27/2017] AFLURIA [id number] 3Admin Note: DECLINED 4Admin Note: pt delcined Medications acetaminophen 325 mg oral tablet 650 mg, By Mouth, Every 6 hours, Refills 0, Maintenance, 09/23/17 8:28:50 Start Date: 09/23/17 Status: Ordered Ambien 5 mg oral tablet 1 tablet = 5 mg, By Mouth, Daily at bedtime, PRN Sleep, 6 month supply, # 14 tablet, 5 Refills, Maintenance, 05/22/20 16:28:00 EDT, Tablet, [facility], 155.9, cm, 04/10/20 8:05:00 EDT, Height, 66.7, kg, 02/01/19 11:39:00 EDT, Dry Weight Start Date: 05/22/20 Status: Ordered buPROPion 300 mg/24 hours (XL) oral tablet, extended release 1 tablet = 300 mg, By Mouth, Daily, # 90 tablet, 1 Refills, Maintenance, 03/12/20 11:46:00 EDT, [facility], Duplicate script, 155.9, cm, 01/10/20 9:47:00 EDT, Height, 66.7, kg, 02/01/19 11:39:00 EDT, Dry Weight Start Date: 03/12/20 Status: Ordered FLUoxetine 10 mg oral capsule 10 mg, 1, capsule, By Mouth, Daily, # 90 capsule, Refills 3, Tot. Refills 3, Maintenance, 06/14/20 8:39:00 EDT, Route to Pharmacy Electronically, [facility], 155.9, cm, 06/14/20 8:07:00 EDT, Height, 66.7, kg, 02/01/19 11:39:00 EDT, Dry We... Start Date: 06/14/20 Status: Ordered Lipitor 40 mg oral tablet 1 tablet = 40 mg, By Mouth, Daily, # 90 tablet, 3 Refills, Maintenance, 12/06/19 10:03:00 EST, Tablet, [facility], 155.9, cm, 12/06/19 9:43:00 EST, Height, 66.7, kg, 02/01/19 11:39:00 EDT, Dry Weight Start Date: 12/06/19 Stop Date: 11/30/20 Status: Ordered LORazepam 1 mg oral tablet 1 tablet = 1 mg, By Mouth, Daily, PRN as needed for anxiety, for 30 days, # 10 tablet, 2 Refills, Acute 10/15/20 14:36:00 EST, 07/17/20 14:36:00 EDT, [facility], 155.9, cm, 06/14/20 8:07:00 EDT, Height, 66.7, kg, 02/01/19 11:39:00 EDT, . Start Date: 07/17/20 Stop Date: 10/15/20 Status: Ordered Problem List Condition Effective Dates [...]
--- OUTSIDE RECORDS SUMMARY | 2024-07-21 14:45 | XMS_ITS | Continuity of Care Document ---
Author Organization [facility] Huy lt Address [address] [place] [address]- Care Team Providers Care Loader Unloader Name Role Phone Hay AGUIRRE, Alden Agudelo Primary Care Physician [phone] Encounter [facility] Date(s): 05/26/23 - 06/25/23 [facility] Adult [address] [place] [address]- Allergies, Adverse Reactions, Alerts Substance Reaction Severity [...] Vaccine (oldterm) 10/12/97 Given 1Result Comment: [09/07/2017] [id number] 2Result Comment: [07/27/2017] AFLURIA [id number] 3Admin Note: DECLINED 4Admin Note: pt delcined Medications fluconazole 150 mg oral tablet 1 tablet = 150 mg, By Mouth, Once, epeat dose if still having symptoms in 72 hours, # 2 tablet, 0 Refills, Soft Stop, 05/29/23 16:47:00 EDT, Tablet, [facility], Partial fill upon patient request if the prescription is for a schedule II op... Start Date: 05/29/23 Status: Ordered FLUoxetine 20 mg oral capsule 1, capsule, By Mouth, Daily, # 30 capsule, Refills 5, Maintenance, 03/26/23 18:02:00 EDT, Route to Pharmacy Electronically, [facility], 156, cm, 08/29/22 14:28:00 EST, Height Start Date: 03/26/23 Status: Ordered Lipitor 40 mg oral tablet 1 tablet = 40 mg, By Mouth, Daily, # 90 tablet, 1 Refills, Maintenance, 03/19/23 15:38:00 EDT, Tablet, [facility], 156, cm, 08/29/22 14:28:00 EST, Height Start Date: 03/19/23 Status: Ordered LORazepam 1 mg oral tablet 1 tablet, By Mouth, Daily, PRN NEEDED FOR ANXIETY, # 10 tablet, 4 Refills, Maintenance, :42:00 EDT, [facility], 156, cm, 08/29/22 14:28:00 EST, [...] 14 tablet, 5 Refills, Maintenance,03/26/23 18:03:00 EDT, [facility], 156, cm, 08/29/22 14:28:00 EST, [...] Nurse Name: Hay AGUIRRE, Alden Agudelo Position: [facility] Physician - Primary Care Member Role: PCP Address: Address: [address] [place] [id number]- Name: Vianney Alexander RN Position: [facility] RN Member Role: Primary Care Nurse Name: Caty Ferrari RN Position: [facility] RN Member Role: Primary Care Nurse Name: Juliann Deal RN Position: [facility] Hospital Conciliator Member Role: Primary Care Nurse Care Team Related Persons Name: BINDU ANGELES Address: home [address] [place] [id number]
--- OUTSIDE RECORDS SUMMARY | 2024-07-21 14:45 | XMS_ITS | Continuity of Care Document ---
Author Organization [facility] Huy lt Address [address] [place] [address]- Care Team Providers Care Search Marketing Specialist Name Role Phone Hay AGUIRRE, Alden Agudelo Primary Care Physician [phone] [place] [facility] [place] [facility] [place] 01/28/21 - 02/27/21 [facility] Adult [address] [place] [address]- Allergies, Adverse Reactions, Alerts Substance Reaction Severity Status Percocet 1 Active 1makes skin crawl Immunizations Given and Recorded Vaccine Date Status Refusal Reason tetanus/diphtheria/pertussis, acel(Tdap) 1 09/07/17 Given tetanus/diphtheria/pertussis, acel(Tdap) 01/17/08 Given influenza virus vaccine, inactivated 2 07/27/17 Gi eklvin influenza virus vaccine, inactivated 08/15/14 Give n influenza virus vaccine, inactivated 3 09/29/13 Gi kelvin influenza virus vaccine, inactivated 4 12/20/12 Gi kelvin pneumococcal 23-valent vaccine 05/21/15 Given Tetanus Toxoid Vaccine (oldterm) 10/12/97 Given 1Result Comment: [09/07/2017] [id number] 2Result Comment: [07/27/2017] AFLURIA [id number] 3Admin Note: DECLINED 4Admin Note: pt delcined [...] Refills, Maintenance, 10/17/20 12:59:00 EST, [facility], Duplicate script, 155.9, cm, 06/14/20 [...] EDT, Route to Pharmacy Electronically, [facility], 155.9, cm, 06/14/20 8:07:00 EDT, Height, 66.7, kg, 02/01/19 11:39:00 EDT, Dry We... Start Date: 06/14/20 Status: Ordered Lipitor 40 mg oral tablet 1 tablet = 40 mg, By Mouth, Daily, # 90 tablet, 1 Refills, Maintenance, 12/26/20 11:08:00 EDT, Tablet, [facility], 156, cm, 12/26/20 8:15:00 EDT, Height, 66.7, kg, 02/01/19 11:39:00 EDT, Dry Weight Start Date: 12/26/20 Status: Ordered LORazepam 1 mg oral tablet 1 tablet = 1 mg, By Mouth, Daily, PRN as needed for anxiety, for 30 days, # 10 tablet, 2 Refills, Acute 03/10/21 13:17:00 EDT, 12/10/20 13:17:00 EST, [facility], 155.9, cm, 06/14/20 8:07:00 EDT, [...]
--- OUTSIDE RECORDS SUMMARY | 2024-07-21 14:45 | XMS_ITS | Continuity of Care Document ---
Author Organization [facility] Address [address] [place] [address]- Care Team Providers Care Collections Attorney Name Role Phone Hay AGUIRRE, Alden Agudelo Primary Care Physician [place] [facility] [place] 12/27/20 - 01/26/[address] [address]- Attending Physician: Kavon Tracey Admitting Physician: Kavon [...] Vaccine (oldterm) 10/12/97 Given 1Result Comment: [09/07/2017] [id number] 2Result Comment: [07/27/2017] AFLURIA [id number] 3Admin Note: DECLINED 4Admin Note: pt delcined Medications acetaminophen 325 mg oral tablet 650 mg, By Mouth, Every 6 hours, Refills 0, Maintenance, 09/23/17 8:28:50 Start Date: 09/23/17 Status: Ordered Ambien 5 mg oral tablet 1 tablet = 5 mg, By Mouth, Daily at bedtime, PRN Sleep, 6 month supply, # 14 tablet, 5 Refills, Maintenance, 01/02/21 11:11:00 EDT, Tablet, [facility], 156, cm, 12/26/20 8:15:00 EDT,Height, [...] Refills, Maintenance, 10/17/20 12:59:00 EST, [facility], Duplicate script, 155.9, cm, 06/14/20 [...] 06/14/20 8:39:00 EDT, Route to Pharmacy Electronically, [facility], 155.9, cm, 06/14/20 8:07:00 EDT, Height, 66.7, kg, 02/01/19 11:39:00 EDT, Dry We... Start Date: 06/14/20 Status: Ordered Lipitor 40 mg oral tablet 1 tablet = 40 mg, By Mouth, Daily, # 90 tablet, 1 Refills, Maintenance, 12/26/20 11:08:00 EDT, Tablet, [facility], 156, cm, 12/26/20 8:15:00 EDT, Height, 66.7, kg, 02/01/19 11:39:00 EDT, Dry Weight Start Date: 12/26/20 Status: Ordered LORazepam 1 mg oral tablet 1 tablet = 1 mg, By Mouth, Daily, PRN as needed for anxiety, for 30 days, # 10 tablet, 2 Refills, Acute 03/10/21 13:17:00 EDT, 12/10/20 13:17:00 EST, [facility], 155.9, cm, 06/14/20 8:07:00 EDT, [...]
--- OUTSIDE RECORDS SUMMARY | 2024-07-21 14:45 | XMS_ITS | Continuity of Care Document ---
Author Organization [facility] Huy [facility] Address [address] [place] [address]- Care Team Providers Care Registered Massage Therapist Name Role Phone Hya AGUIRRE, Alden Agudelo Primary Care Physician [phone] Encounter [facility] Date(s): 08/29/22 - 09/28/22 [facility] Adult [address] [place] [address]- Attending Physician: Admtr, Ar8 Allergies, Adverse Reactions, [...] Vaccine (oldterm) 10/12/97 Given 1Result Comment: [09/07/2017] [id number] 2Result Comment: [07/27/2017] AFLURIA [id number] 3Admin Note: DECLINED 4Admin Note: pt delcined Medications FLUoxetine 20 mg oral capsule 20 mg, 1, capsule, By Mouth, Daily, Increase in dose, # 30 capsule, Refills 5, Tot. Refills 5, Maintenance, 08/29/22 14:56:00 EST, Route to Pharmacy Electronically, [facility], Partial fill upon patient [...] 15:17:00 EDT, 08/30/22 15:17:00 EST, [facility], 156, [...] Active Osteopenia Confirmed Active Osteoporosis Confirmed Active Procedures Procedure Date Related Diagnosis Body [...] day hernesto alvarez entered on: 03/17/18 Sex EKG study * Event Display: EKG Authored Date: Note * Event Display: MRI Ankle/Foot, Non- Authored Date: * Event Display: Cardiology Office Note, Non- Authored Date: * Event Display: Radiology Result Scanned Authored Date: * Event Display: Non Lab Results Authored Date: * Event Display: Radiology Result Scanned Authored Date: * Jane Plascencia.: PERFORM Event Display: Radiology Results Scanned Authored Date: [id number] * Jane Plascencia.: PERFORM Event Display: Laboratory Results Scanned Authored Date: [id number] Patient Care team information Care Team Personnel Name: Fay Wong RN Position: [facility] RN Member Role: Primary Care Nurse Name: Alden Guido MD Position: [facility] Primary Care Physician Member Role: PCP Address: Address: [address] [place] [address]- Name: Vianney Alexander RN Position: [facility] RN Member Role: Primary Care Nurse Name: Caty Ferrari RN Position: [facility] RN Member Role: Primary Care Nurse Name: Juliann Deal RN Position: [facility] Hospital Histotechnologist Supervisor Member Role: Primary Care Nurse Care Team Related Persons Name: BINDU ANGELES Address: home [address] [place] [address]
--- OUTSIDE RECORDS SUMMARY | 2024-07-21 14:45 | XMS_ITS | Continuity of Care Document ---
Author Organization [facility] Address [address] [place] [address]- Care Team Providers Care Supervisor Rework Name Role Phone Alden Guido MD Primary Care Physician [phone] Encounter 09/13/20 - 09/20/20 [facility] [place] [address] [facility], [address] [place] [address]- Attending Physician: Alden Guido MD Admitting Physician: Alden Guido MD Referring Physician: Aldne Guido MD Allergies, Adverse Reactions, Alerts Substance Reaction Severity Status NKA Active Immunizations Given and Recorded Vaccine Date Status Refusal Reason tetanus/diphtheria/pertussis, acel(Tdap) 1 09/07/17 Given tetanus/diphtheria/pertussis, acel(Tdap) 01/17/08 Given influenza virus vaccine, inactivated 2 07/27/17 Gi kelvin influenza virus vaccine, inactivated 08/15/14 Give n influenza virus vaccine, inactivated 3 09/29/13 Gi kevlin influenza virus vaccine, inactivated 4 12/20/12 Gi kelvin pneumococcal 23-valent vaccine 05/21/15 Given Tetanus Toxoid Vaccine (oldterm) 10/12/97 Given 1Result Comment: [09/07/2017] [id number] 2Result Comment: [07/27/2017] AFLURIA [id number] 3Admin Note: DECLINED 4Admin Note: pt delcined Medications acetaminophen 325 mg oral tablet 650 mg, By Mouth, Every 6 hours, Refills 0, Maintenance, 09/23/17 8:28:50 Start Date: 09/23/17 Status: Ordered Ambien 5 mg oral tablet 1 tablet = 5 mg, By Mouth, Daily at bedtime, PRN Sleep, 6 month supply, # 14 tablet, 5 Refills, Maintenance, 05/22/20 16:28:00 EDT, Tablet, [facility], 155.9, cm, 04/10/20 8:05:00 EDT, [...] 06/14/20 8:39:00 EDT, Route to Pharmacy Electronically, [facility], 155.9, cm, 06/14/20 8:07:00 EDT, Height, 66.7, kg, 02/01/19 11:39:00 EDT, Dry We... Start Date: 06/14/20 Status: Ordered Lipitor 40 mg oral tablet 1 tablet = 40 mg, By Mouth, Daily, # 90 tablet, 3 Refills, Maintenance, 12/06/19 10:03:00 EST, Tablet, [facility], 155.9, cm, 12/06/19 9:43:00 EST, Height, 66.7, kg, 02/01/19 11:39:00 EDT, Dry Weight Start Date: 12/06/19 Stop Date: 11/30/20 Status: Ordered LORazepam 1 mg oral tablet 1 tablet = 1 mg, By Mouth, Daily, PRN as needed for anxiety, for 30 days, # 10 tablet, 2 Refills, Acute 12/02/20 11:42:00 EST, 09/03/20 11:42:00 EST, [facility], 155.9, cm, 06/14/20 8:07:00 EDT, Height, 66.7, kg, 02/01/19 11:39:00 EDT, . Start Date: 09/03/20 Stop Date: 12/02/20 Status: Ordered Problem List Condition Effective Dates [...]
--- OUTSIDE RECORDS SUMMARY | 2024-07-21 14:45 | XMS_ITS | Continuity of Care Document ---
Author Organization [facility] Address [address] [place] [address]- Care Team Providers Care Coconut Boiler Name Role Phone Alden Guido MD Primary Care Physician Encounter [facility] [place] Date(s): 06/11/20 - 07/12/20 [facility] Adult [address] [place] [address]- [facility] Attending Physician: Alden Guido MD Allergies, Adverse [...] Vaccine (oldterm) 10/12/97 Given 1Result Comment: [09/07/2017] [id number] 2Result Comment: [07/27/2017] AFLURIA [id number] 3Admin Note: DECLINED 4Admin Note: pt delcined Medications acetaminophen 325 mg oral tablet 650 mg, By Mouth, Every 6 hours, Refills 0, Maintenance, 09/23/17 8:28:50 Start Date: 09/23/17 Status: Ordered Ambien 5 mg oral tablet 1 tablet = 5 mg, By Mouth, Daily at bedtime, PRN Sleep, 6 month supply, # 14 tablet, 5 Refills, Maintenance, 05/22/20 16:28:00 EDT, Tablet, [facility], 155.9, cm, 04/10/20 8:05:00 EDT, Height, 66.7, kg, 02/01/19 11:39:00 EDT, Dry Weight Start Date: 05/22/20 Status: Ordered buPROPion 300 mg/24 hours (XL) oral tablet, extended release 1 tablet = 300 mg, By Mouth, Daily, # 90 tablet, 1 Refills, Maintenance, 03/12/20 11:46:00 EDT, [facility], Duplicate script, 155.9, cm, 01/10/20 9:47:00 EDT, Height, 66.7, kg, 02/01/19 11:39:00 EDT, Dry Weight Start Date: 03/12/20 Status: Ordered FLUoxetine 10 mg oral capsule 10 mg, 1, capsule, By Mouth, Daily, # 90 capsule, Refills 3, Tot. Refills 3, Maintenance, 06/14/20 8:39:00 EDT, Route to Pharmacy Electronically, [facility], 155.9, cm, 06/14/20 8:07:00 EDT, Height, 66.7, kg, 02/01/19 11:39:00 EDT, Dry We... Start Date: 06/14/20 Status: Ordered Lipitor 40 mg oral tablet 1 tablet = 40 mg, By Mouth, Daily, # 90 tablet, 3 Refills, Maintenance, 12/06/19 10:03:00 EST, Tablet, [facility], 155.9, cm, 12/06/19 9:43:00 EST, [...]
--- OUTSIDE RECORDS SUMMARY | 2024-07-21 14:45 | XMS_ITS | Continuity of Care Document ---
Author Organization [facility] Address [address] [facility] [address] [place] [address]- Care Team Providers Care Aircraft Tool Maker Name Role Phone Alden Guido MD Primary Care Physician Encounter 10/15/21 - 10/22/21 [facility] [address], [address] [place] [address]- Attending Physician: Alden Guido MD Admitting Physician: [...] Vaccine (oldterm) 10/12/97 Given 1Result Comment: [09/07/2017] [id number] 2Result Comment: [07/27/2017] BEARURIA [id number] 3Admin Note: DECLINED 4Admin Note: pt delcined Medications acetaminophen 325 mg oral tablet 650 mg, By Mouth, Every 6 hours, Refills 0, Maintenance, 09/23/17 8:28:50 Start Date: 09/23/17 Status: Ordered Aspirin Tablet 325 mg, By Mouth, 2 times a day, Refills 0, Maintenance, 03/27/21 10:29:00 EDT, Partial fill upon patient request [...] capsule, Refills 3, Route to Pharmacy Electronically, [facility], 156, cm, 01/05/21 6:17:00 EDT, [...] 13:01:00 EDT, 09/03/21 13:16:00 EST, [facility], 156, cm, 01/05/21 6:17:00 EDT, [...] Acute 08/07/22 7:06:00 EDT, 02/08/22 7:06:00 EDT, [facility], 156, cm, 01/05/21 6:17:00 EDT, Height, 69.6, kg, 01/04/21 10:03:00 E... Start Date: 02/08/22 Stop Date: 08/07/22 Status: Ordered zolpidem 5 mg oral tablet 1 tablet, By Mouth, Daily at bedtime, PRN NEEDED FOR SLEEP TO LAST, for 30 days, # 14 tablet, 5 Refills, Acute 02/08/22 7:06:00 EDT, 08/12/21 7:06:00 EDT, [facility], 156, cm, 01/05/21 6:17:00 EDT, [...]
--- OUTSIDE RECORDS SUMMARY | 2024-07-21 14:45 | XMS_ITS | Continuity of Care Document ---
Author Organization [facility] Logan Huy lt Address [address] [place] [address]- Care Team Providers Care Scrap Carrier Name Role Phone Hay AGUIRRE, Alden Agudelo Primary Care Physician [facility] Date(s): 10/22/21 - 11/21/21 [facility] [place] Adult [address] [place] [address]- Allergies, Adverse Reactions, Alerts Substance Reaction Severity [...] Vaccine (oldterm) 10/12/97 Given 1Result Comment: [09/07/2017] [id number] 2Result Comment: [07/27/2017] AFLURIA [id number] 3Admin Note: DECLINED 4Admin Note: pt delcined [...] Acute 08/07/22 7:06:00 EDT, 02/08/22 7:06:00 EDT, [facility], 156, cm, 01/05/21 6:17:00 EDT, Height, 69.6, kg, 01/04/21 10:03:00 E... Start Date: 02/08/22 Stop Date: 08/07/22 Status: Ordered zolpidem 5 mg oral tablet 1 tablet, By Mouth, Daily at bedtime, PRN NEEDED FOR SLEEP TO LAST, for 30 days, # 14 tablet, 5 Refills, Acute 02/08/22 7:06:00 EDT, 08/12/21 7:06:00 EDT, [facility], 156, cm, 01/05/21 6:17:00 EDT, [...]
--- OUTSIDE RECORDS SUMMARY | 2024-07-21 14:45 | XMS_ITS | Continuity of Care Document ---
Author Organization [facility] Address [address] [place] [id number]- Care Team Providers Care Ornamental Rail Installer Name Role Phone Hay AGUIRRE, Alden Agudelo Primary Care Physician [phone] [facility]s): 10/20/23 - 11/19/23 [facility] [address] [place] [id number] Allergies, Adverse Reactions, Alerts Substance Reaction Severity [...] Vaccine (oldterm) 10/12/97 Given 1Result Comment: [09/07/2017] [id number] 2Result Comment: [07/27/2017] AFLURIA [id number] 3Admin Note: DECLINED 4Admin Note: pt delcined Medications aspirin 325 mg oral delayed release tablet 325 mg, 1, tablet, By Mouth, Daily, # 30 tablet, Refills 0, Tot. Refills 0, Maintenance, 07/29/23 13:51:00 EDT, Route to Pharmacy Electronically, [facility], Partial fill upon patient request if the prescription is for a schedule II opio... Start Date: 07/29/23 Status: Ordered atorvastatin 40 mg oral tablet 1 tablet, By Mouth, Daily, # 90 tablet, 1 Refills, Maintenance, 10/06/23 18:41:00 EST, [facility], 152.4, cm, 08/19/23 14:08:00 EST, Height, 65.4, kg, 07/29/23 12:55:00 EDT, Dry Weight Start Date: 10/06/23 Status: Ordered FLUoxetine 20 mg oral capsule 1, capsule, By Mouth, Daily, # 90 capsule, Refills 1, Tot. Refills 1, Maintenance, 10/06/23 18:42:00 EST, Route to Pharmacy Electronically, [facility], 152.4, cm, 08/19/23 14:08:00 EST, Height, 65.4, kg, 07/29/23 12:55:00 EDT, Dry Weight Start Date: 10/06/23 Status: Ordered LORazepam 1 mg oral tablet 1 tablet, By Mouth, Daily, NEEDED FOR ANXIETY., # 10 tablet, 4 Refills, Maintenance, 09/01/23 16:05:00 EST, [facility], 152.4, cm, 08/19/23 14:08:00 EST, Height, 65.4, kg, 07/29/23 12:55:00 EDT, Dry Weight Start Date: 09/01/23 Stop Date: 01/31/24 Status: Ordered zolpidem 5 mg oral tablet 1 tablet, By Mouth, Daily at bedtime, PRN NEEDED FOR SLEEP, # 14 tablet, 5 Refills, Maintenance,03/26/23 18:03:00 EDT, [facility], 156, cm, 08/29/22 14:28:00 EST, [...] Team Personnel Name: Fay Wong RN Position: [facility] RN Member Role: Primary Care Nurse Name: Hay AGUIRRE, Alden Agudelo Position: [facility] Physician - Primary Care Member Role: PCP Address: Address: [address] [place] [id number]- Name: Vianney Alexander RN Position: [facility] RN Member Role: Primary Care Nurse Name: Caty Ferrari RN Position: [facility] RN Member Role: Primary Care Nurse Name: Juliann Deal RN Position: [facility] Hospital Hand Roller Engraver Member Role: Primary Care Nurse Care Team Related Persons Name: BINDU ANGELES Address: home [address] [place] [id number]
--- OUTSIDE RECORDS SUMMARY | 2024-07-21 14:45 | XMS_ITS | Continuity of Care Document ---
Author Organization [facility] Logan Huy lt Address [address] [place] [address]- Care Team Providers Care House Wirer Helper Name Role Phone Hay AGUIRRE, Alden Agudelo Primary Care Physician [facility] Date[facility]s): 08/19/23 - 09/18/23 [facility] [address] [place] [address]- Attending Physician: Admtr, Ar8 Allergies, Adverse Reactions, [...] Vaccine (oldterm) 10/12/97 Given 1Result Comment: [09/07/2017] [id number] 2Result Comment: [07/27/2017] AFLURIA [id number] 3Admin Note: DECLINED 4Admin Note: pt delcined Medications aspirin 325 mg oral delayed release tablet 325 mg, 1, tablet, By Mouth, Daily, # 30 tablet, Refills 0, Tot. Refills 0, Maintenance, 07/29/23 13:51:00 EDT, Route to Pharmacy Electronically, [facility], Partial fill upon patient request if the prescription is for a schedule II opio... Start Date: 07/29/23 Status: Ordered FLUoxetine 20 mg oral capsule 1, capsule, By Mouth, Daily, # 30 capsule, Refills 5, Maintenance, 03/26/23 18:02:00 EDT, Route to Pharmacy Electronically, [facility], 156, cm, 08/29/22 14:28:00 EST, Height Start Date: 03/26/23 Status: Ordered Lipitor 40 mg oral tablet 1 tablet = 40 mg, By Mouth, Daily, # 90 tablet, 1 Refills, Maintenance, 03/19/23 15:38:00 EDT, Tablet, [facility], 156, cm, 08/29/22 14:28:00 EST, Height Start Date: 03/19/23 Status: Ordered LORazepam 1 mg oral tablet 1 tablet, By Mouth, Daily, NEEDED FOR ANXIETY., # 10 tablet, 4 Refills, Maintenance, 09/01/23 16:05:00 EST, [facility], 152.4, cm, 08/19/23 14:08:00 EST, Height, 65.4, kg, 07/29/23 12:55:00 EDT, Dry Weight Start Date: 09/01/23 Stop Date: 01/31/24 Status: Ordered zolpidem 5 mg oral tablet 1 tablet, By Mouth, Daily at bedtime, PRN NEEDED FOR SLEEP, # 14 tablet, 5 Refills, Maintenance,03/26/23 18:03:00 EDT, [facility], 156, cm, 08/29/22 14:28:00 EST, [...] per day: 6-7; entered on: 05/25/17 Sex EKG study * Event Display: EKG Authored Date: Laboratory * Event Display: Non BH Lab Results Authored Date: * Event Display: Non BH Lab Results Authored Date: * Jane Plascencia: PERFORM Event Display: Laboratory Results Scanned Authored Date: [id number] Cardiology * Event Display: Cardiology Office Note, Non-BH Authored Date: Radiology * Event Display: MRI Ankle/Foot, Non- BH Authored Date: * Event Display: Radiology Result Scanned Authored Date: * Event Display: Radiology Result Scanned Authored Date: * Jane Plascencia: PERFORM Event Display: Radiology Results Scanned Authored Date: [id number] Patient Care team information Care Team Personnel Name: Fay Wong RN Position: [facility] RN Member Role: Primary Care Nurse Name: Alden Guido MD Position: [facility] Physician - Primary Care Member Role: PCP Address: Address: [address] [place] [address]- Name: Vianney Alexander RN Position: [facility] RN Member Role: Primary Care Nurse Name: Caty Ferrari RN Position: [facility] RN Member Role: Primary Care Nurse Name: Juliann Deal RN Position: [facility] Hospital Structural Biologist Member Role: Primary Care Nurse Care Team Related Persons Name: BINDU ANGELES Address: home [address] [place] [id number]
--- OUTSIDE RECORDS SUMMARY | 2024-07-21 14:46 | XMS_ITS | Continuity of Care Document ---
Author Organization [facility] Logan Huy lt Address [address] [place] [address]- Care Team Providers Care Compliance Tester Name Role Phone Hay AGUIRRE, Alden Agudelo Primary Care Physician [phone] [facility] 06/17/24 - 07/17/24 [facility] Adult [address] [place] [address]- Allergies, Adverse Reactions, Alerts Substance Reaction Severity [...] Vaccine (oldterm) 10/12/97 Given 1Result Comment: [09/07/2017] [id number] 2Result Comment: [07/27/2017] AFLURIA [id number] 3Admin Note: DECLINED 4Admin Note: pt delcined Medications aspirin 325 mg oral delayed release tablet 325 mg, 1, tablet, By Mouth, Daily, # 30 tablet, Refills 0, Tot. Refills 0, Maintenance, 07/29/23 13:51:00 EDT, Route to Pharmacy Electronically, [facility], Partial fill upon [...] EDT, Route to Pharmacy Electronically, [facility], 152.4, cm, 02/10/24 11:11:00 EDT, Height, 65.4, kg, 07/29/23 12:55:00 EDT, Dry Weight Start Date: 04/29/24 Status: Ordered LORazepam 1 mg oral tablet 1 tablet, By Mouth, Daily, INSTR: NEEDED FOR ANXIETY., # 10 tablet, 4 Refills, Hard Stop 08/30/24 5:49:00 EST, 03/30/24 5:49:00 EDT, [facility], 152.4, cm, 02/10/24 11:11:00 EDT, [...] Team Personnel Name: Fay Wong RN Position: [facility] RN Member Role: Primary Care Nurse Name: Alden Guido MD Position: S Physician - Primary Care Member Role: PCP Address: Address: [address] [place] [address]- Name: Vianney Alexander RN Position: S RN Member Role: Primary Care Nurse Name: Caty Ferrari RN Position: S RN Member Role: Primary Care Nurse Name: Juliann Deal RN Position: S SN RN Member Role: Primary Care Nurse Care Team Related Persons Name: BINDU ANGELES Address: home [address] [place] [id number]
[2024-07-21 15:09] VITALS: BP 161/82; BP 168/93; PULSE 62; PULSE 70
[2024-07-21 15:10] VITALS: BP 164/89; PULSE 68
[2024-07-21 15:12] VITALS: BP 164/89; PULSE 67; RESP 18; TEMP 37; O2SAT 97
[2024-07-21] MEDS: Butalb/Acetamin/Caff 50/325/40 TABLET 1 TAB PO (16:27)
[2024-07-21 16:59] LABS: Troponin-I High Sensitivity < 2.7 ng/L (<3.5-17.0)
[2024-07-21 18:09] VITALS: BP 154/98; PULSE 63; RESP 16; O2SAT 98
[2024-07-21] MEDS: Metoclopramide HCl 10 MG TABLET PO (18:11)
[2024-07-21] MEDS: Ketorolac Tromethamine 30 MG/ML VIAL IM (18:11)
[2024-07-21 18:22] VITALS: BP 154/98; PULSE 63; RESP 16; TEMP 37; O2SAT 98
== END 2024-07-21 18:23 | disposition home or self-care (01) ==
PROVIDERS: Physician Assistant; Registered Nurse Emergency; Emergency Provider Emergency Medicine; PCP Family Medicine
DX: R07.89 Other chest pain (principal); R51.9 Headache, unspecified; R03.0 Elevated blood-pressure reading, without diagnosis of hypertension; Z79.899 Other long term (current) drug therapy; Z03.818 Encounter for observation for suspected exposure to other biological agents ruled out
CPT/HCPCS: 0241U; 36415; 70450; 71046; 80053; 83735; 84484; 85025; 85610; 93005; 96372; 99284; 99285; J1885

== ENCOUNTER → 2024-07-21 12:41 | Outpatient (BNV) | payer BC, SELFPAY | PROVIDERS: Emergency Provider Emergency Medicine; PCP Family Medicine; Visit Provider Internal Medicine Cardiovascular Disease | DX: R94.31 Abnormal electrocardiogram [ECG] [EKG] (principal) | CPT/HCPCS: 93010 ==